=== PATIENT | male | born 1940 | race Caucasian/White ===

== ENCOUNTER → 2016-07-19 | Outpatient (RCR) ==
--- NOTE | 2016-06-30 11:56 | RS.OPPTEV2 ---
Date of Note: 06/29/16 Visit #: 1 Date of Evaluation: 06/29/16 Payer Source: MEDICARE Date of Onset/Injury/Change in Status: 05/19/16 Treatment Diagnosis: low back pain, neck pain, degenerative disease of lumbar spine History of Condition/Mechanism of Injury:: Patient reports low back and neck pain for approximately a month. Reports no known injury. Prior Level of Function.....Patient was independent with: ADL's, Self Care, Caregiving, Ambulation/Mobility, Community Integration/Access Functional Limitations: Reaching, Pushing, Pulling, Lifting, Carrying, Standing , Bending, Squatting, Community Access/Integration Current Subjective/complaints:: He denies tingling or numbness in the UE or LE' s. States the low back does not bother him all the time. States it can depend on activity. States he walks occasionally for exericse, and his back does not seem to bother him. States his neck pain began about the same time as the back. States it feels like it is swollen up the neck to the base of the skull. States he has used patches on his back and heating pad at times. He took Lortab today, but usually does not take pain medication unless he has to. Later reports occasional tingling in his feet, but he feels this is likely due to circulation problems. Medical History Medical History: COPD Medical History Comments:: HTN, PVD Surgical History Comments:: Cervical spine surgery ~10 years ago, lumbar surgery over 20 years ago, angioplasty/3 stents, Abdominal Aortic aneurysm, Hernia repair 1999 Smoking Status: Current some day smoker Diagnostic Testing/Imaging:: CT of lumbar spine w/o contrast on 06/23/16. Impression: Surgical stabilization at L5-S1. Degernerative changes at muliple interspaces, including a right sided disc protrusion at L3-4. there is central spinal stenosis and left foraminal narrowing at L4-5. Hx Home Medications: Lortab, Ambien, ASA, Metoprolol, Plavix, Pletal, Zetia Patient's Goals: His goal is to get relief of neck and back pain. Pain Assessment - Pain Description Pain Location: center of low back and center of neck up to the base of his skull. Current Pain Intensity: 4/10 Functional Outcome Measure Oswestry LBP: 36 - G Codes & Severity Modifier G Codes & Modifier: Mobility current CJ. Mobility goal CH Source of G Code score: Oswestry LBP scale Observation - Observation Posture: Forward Head, Rounded Shoulders, Posterior Pelvic Tilt Handedness: Right Gait - Gait Pattern General Gait Pattern Observation: No Deviations/Normal - ROM Comments: Cervical flexion is WFL's, extension is ~ 50% of normal, rotation to the right is WFL's, rotation to the left is approximately 60-70% of normal. Bilateral UE AROM is WFL's. - Strength Comments: UE strength is 4+ to 5/5 throughout. Fundraising Assistant Strength Left Hand Fundraising Assistant Strength: 40 lbs. Right Hand Fundraising Assistant Strength: 42 lbs. Dynamometer Testing Position: 2nd Position - ROM Lumbar Flexion: Hand reach to patellae Sidebending to Left: Reach to Mid-thigh Sidebending to Right: Reach to Mid-thigh Lumbar Spine ROM Limitations: Soft Tissue Tightness, Pain Comments: Bilateral LE AROM is WFL's, with left hip generally tighter throughout with comparison to the right hip joint. Left hip mobility into figure 4 position is approximately 50% of right hip ROM. Lower trunk rotation is approximately 50% of normal. - Strength Trunk Lateral Flexion: 4 Good Trunk Rotation: 4 Good Comments: Bilateral hip flexion, abduction, ER, and IR 4- to 4/5. All else of both hips 4/5. Bilateral knees and ankles 5/5. - Special Tests SLR Test: Negative Left, Negative Right Lila's Sign Test: Negative Left, Negative Right Seated Dural Stretch Test: Negative Left, Negative Right SI Joint Compression: Negative SI Joint Distraction: Negative Palpation Comments:: Moderate increased muscle tone along bilateral cervical paraspinals to the base of the skull. Mild tenderness reported along this region. Minimal to moderate increased muscle tone along the lumbar paraspinals bilaterally. Patient reports tenderness with central PA's over the lumbar spinous processes at the levels of L5-L2. Sensation - Sensation Right Upper Extremity: Intact/Normal Left Upper Extremity: Intact/Normal Right Lower Extremity: Intact/Normal Left Lower Extremity: Intact/Normal Balance - Sitting Balance Static Sitting Balance: Normal Dynamic Sitting Balance: Normal - Standing Balance Static Standing Balance: Good Dynamic Standing Balance: Good (-) Additional Comments: Additional Comments: SLR in supine: left 35-40 degrees, right 45 degrees. Interventions - Exercise/Activities/Manual Therapy Exercises/Activities: Patient instructed in SKTC, HS stretch, and left cervical rotation. Patient assisted with stretching into SKTC and HS stretch. Patient states end range SKTC decreases his pain. Total minutes of Exercise: 16 mins Manual Therapy: NA HOME EXERCISE PROGRAM: SKTC, HS stretch, and left cervical rotation. - Charges Total Direct Minutes: 52 mins Total Treatment Time: 52 mins Procedures billed for this date of service:: PT gibson jauregui, Ex Assessment Assessment: Patient presents to therapy with a diagnosis of degenerative disease of the lumbar spine with low back pain. He also reports neck pain that began around the same time as the back. A call was placed to Dr. Stapleton asking if he would like us to also treat Mr. Pak's neck. The patient demonstrates limited neck ROM and stability, and also demonstrates muscle imbalances in the hips that need to be addressed to decrease his back pain. Patient Education: Education of diagnosis, Body/Joint mechanics, Home Exercise Program, Home Safety, Activity Modification, Education of Plan of Care Rehab Potential: Good Short Term Goals Goal #1: Patient independent and compliant in basic HEP. Goal to be met by: 07/14/16 Goal #2: Bilateral SLR 45-50 degrees. Goal to be met by: 07/14/16 Goal #3: Bilateral hip strength 4+/5. Goal to be met by: 07/14/16 Goal #4: Cervical rotation to the left WFL's. Goal to be met by: 07/14/16 Energy Assistant Goals Goal #1: Pt knows to cont. HEP to maintain level of function at discharge. Goal to be met by: 08/04/16 Goal #2: Score on Oswestry LBP scale improved to 0% impairment. Goal to be met by: 08/04/16 Goal #3: Pt able to perform ADL's with minimal neck or back pain. Goal to be met by: 08/04/16 Goal #4: Patient to demonstrate improved postural awareness. Goal to be met by: 08/04/16 Plan - Treatment to be Provided Procedures: Therapeutic Exercises, Therapeutic Activity, Manual Therapy, Patient Education Modalities: Electrical Stimulation, Ultrasound/Phonophoresis, Class IV Laser, Cryotherapy, Hot Packs - Treatment Plan Frequency: 2-3 X week Duration: 4 weeks ORDER # VISITS AND/OR THROUGH DATE: 08/04/16 - Treatment Code (1) Low back pain Qualifiers: Chronicity: acute Back pain laterality: unspecified Sciatica presence: unspecified whether sciatica present Qualified Description: Acute low back pain, unspecified back pain laterality, with sciatica presence unspecified Qualifier Code(s): (M54.5) Low back pain (2) Neck pain Comments: M54.2 (3) Degenerative disc disease, lumbar Comments: M51.36
--- NOTE | 2016-06-30 14:03 | RS.OPPTDN ---
Subjective Date of Note: 06/30/16 Visit #: 2 Date of Evaluation: 06/29/16 Payer Source: MEDICARE Treatment Diagnosis: low back pain, neck pain, degenerative disease of lumbar spine Current Subjective/complaints:: Patient reports soreness in the lumbar paraspinals after last session of starting stretching. Pain Assessment - Pain Description Pain Location: center of low back and center of neck up to the base of his skull. Current Pain Intensity: 4-5/10 - Treatment Parameters/Method Applied: [id number] at 1.5w/cm2 along the lateral edges of the lumbar paraspinals prior EX. Patient in right side-lying. Patient Position: Right Sidelying - Heat/Cryotherapy Treatment: Hot Pack ([id number] to the lowback prior to EX. Patient in supine. ) Interventions - Exercise/Activities/Manual Therapy Exercises/Activities: Patient instructed in SKTC, HS stretch, piriformis, figure 4 hip stretch, and lower trunk rotation stretch. In sitting, reviewed cervical stretching and isometric cervical retraction. Total minutes of Exercise: 14mins Manual Therapy: NA HOME EXERCISE PROGRAM: SKTC, HS stretch, and left cervical rotation. - Charges Total Direct Minutes: 24mins Total Treatment Time: 44mins Procedures billed for this date of service:: HP, US, EX Assessment: Patient should benefit from progressing stretches and working toward trunk strengthening exercises. Patient Education: Body/Joint mechanics, Home Exercise Program Patient demonstrates compliance with HEP?: Yes Short Term Goals Goal #1: Patient independent and compliant in basic HEP. Goal to be met by: 07/14/16 Progress towards Goal:: Progressing Goal #2: Bilateral SLR 45-50 degrees. Goal to be met by: 07/14/16 Goal #3: Bilateral hip strength 4+/5. Goal to be met by: 07/14/16 Goal #4: Cervical rotation to the left WFL's. Goal to be met by: 07/14/16 Group Home Goals Goal #1: Pt knows to cont. HEP to maintain level of function at discharge. Goal to be met by: 08/04/16 Goal #2: Score on Oswestry LBP scale improved to 0% impairment. Goal to be met by: 08/04/16 Goal #3: Pt able to perform ADL's with minimal neck or back pain. Goal to be met by: 02/16/17 Goal #4: Patient to demonstrate improved postural awareness. Goal to be met by: 08/04/16 Plan PLAN OF CARE EXPIRES ON:: 08/04/16 ORDER # VISITS AND/OR THROUGH DATE: 08/04/16 PLAN: Continue Plan of Care
--- NOTE | 2016-07-05 16:03 | RS.OPPTDN ---
Subjective Date of Note: 07/05/16 Visit #: 3 Date of Evaluation: 06/29/16 Payer Source: MEDICARE Treatment Diagnosis: low back pain, neck pain, degenerative disease of lumbar spine Current Subjective/complaints:: Patient reports last treatment helped reduce pain. States he is working on HEP of stretching. Pain Assessment - Pain Description Pain Location: center of low back and center of neck up to the base of his skull. Current Pain Intensity: 4-5/10 - Treatment Modality: Ultrasound Parameters/Method Applied: [id number] at 1.5w/cm2 to the lateral edges of the lumbar paraspinals. Patient Position: Right Sidelying - Heat/Cryotherapy Treatment: Hot Pack ([id number] to the cervical spine and lowback prior to US and EX. patient in supine. ) Interventions - Exercise/Activities/Manual Therapy Exercises/Activities: [id number] Patient assisted with HS stretch, SKTC, piriformis , figure 4 hip stretch, and lower trunk rotation stretch. In sitting, reviewed cervical stretching and isometric cervical retraction. Total minutes of Exercise: 12mins Manual Therapy: NA HOME EXERCISE PROGRAM: SKTC, HS stretch, trunk rotation, and left cervical rotation. - Charges Total Direct Minutes: 26mins Total Treatment Time: 46mins Procedures billed for this date of service:: HP, US, EX Assessment: Patient responding to treatment and working on basic HEP. Patient Education: Home Exercise Program Patient demonstrates compliance with HEP?: Yes Short Term Goals Goal #1: Patient independent and compliant in basic HEP. Goal to be met by: 07/14/16 Progress towards Goal:: Progressing Goal #2: Bilateral SLR 45-50 degrees. Goal to be met by: 07/14/16 Progress towards Goal:: Progressing Goal #3: Bilateral hip strength 4+/5. Goal to be met by: 07/14/16 Goal #4: Cervical rotation to the left WFL's. Goal to be met by: 07/14/16 Jail Goals Goal #1: Pt knows to cont. HEP to maintain level of function at discharge. Goal to be met by: 08/04/16 Goal #2: Score on Oswestry LBP scale improved to 0% impairment. Goal to be met by: 08/04/16 Goal #3: Pt able to perform ADL's with minimal neck or back pain. Goal to be met by: 08/04/16 Goal #4: Patient to demonstrate improved postural awareness. Goal to be met by: 08/04/16 Plan PLAN OF CARE EXPIRES ON:: 08/04/16 ORDER # VISITS AND/OR THROUGH DATE: 08/04/16 PLAN: Continue Plan of Care
--- NOTE | 2016-07-07 14:42 | RS.OPPTDN ---
Subjective Date of Note: 07/07/16 Visit #: 4 Date of Evaluation: 06/29/16 Payer Source: MEDICARE Treatment Diagnosis: low back pain, neck pain, degenerative disease of lumbar spine Current Subjective/complaints:: Patient reports pain is lower than it was when he started. States he has little to no pain following treatment, but mild to mod discomfort usually returns within a day. Pain Assessment - Pain Description Pain Location: center of low back and center of neck up to the base of his skull. Current Pain Intensity: 4-5/10 - Treatment Parameters/Method Applied: [id number] at 1.5w/cm2 along the lateral borders of the lower lumbar paraspinals. Patient Position: Right Sidelying - Heat/Cryotherapy Treatment: Hot Pack ([id number] to the lowback and neck prior to US and EX. Patient in supine. ) Interventions - Exercise/Activities/Manual Therapy Exercises/Activities: [id number] Patient assisted with HS stretch, SKTC, piriformis , figure 4 hip stretch, and lower trunk rotation stretch. Began isometric hip adduction, isometric hip flexion, and SLR, all 3s/5reps. In sitting, green theraband for scapular retraction 2s/10reps. Reviewed cervical stretching and isometric cervical retraction. Total minutes of Exercise: 15mins Manual Therapy: NA HOME EXERCISE PROGRAM: SKTC, HS stretch, trunk rotation, and left cervical rotation. - Charges Total Direct Minutes: 27mins Total Treatment Time: 47mins Procedures billed for this date of service:: HP, US, EX Assessment: Patient continues to report progress with therapy. He is able to progress toward stability exercises. Patient Education: Body/Joint mechanics, Home Exercise Program, Home Safety, Activity Modification Patient demonstrates compliance with HEP?: Yes Short Term Goals Goal #1: Patient independent and compliant in basic HEP. Goal to be met by: 07/14/16 Progress towards Goal:: Progressing Goal #2: Bilateral SLR 45-50 degrees. Goal to be met by: 07/14/16 Progress towards Goal:: Progressing Goal #3: Bilateral hip strength 4+/5. Goal to be met by: 07/14/16 Progress towards Goal:: Progressing Goal #4: Cervical rotation to the left WFL's. Goal to be met by: 07/14/16 Director Education Goals Goal #1: Pt knows to cont. HEP to maintain level of function at discharge. Goal to be met by: 08/04/16 Goal #2: Score on Oswestry LBP scale improved to 0% impairment. Goal to be met by: 08/04/16 Goal #3: Pt able to perform ADL's with minimal neck or back pain. Goal to be met by: 08/04/16 Goal #4: Patient to demonstrate improved postural awareness. Goal to be met by: 08/04/16 Plan PLAN OF CARE EXPIRES ON:: 08/04/16 ORDER # VISITS AND/OR THROUGH DATE: 08/04/16
--- NOTE | 2016-07-08 16:26 | RS.OPPTDN ---
Subjective Date of Note: 07/08/16 Visit #: 5 Date of Evaluation: 06/29/16 Payer Source: MEDICARE Treatment Diagnosis: low back pain, neck pain, degenerative disease of lumbar spine Current Subjective/complaints:: Patient reports treatment and exercise is helping reduce pain. States neck pain is much better. Pain Assessment - Pain Description Pain Location: center of low back and center of neck up to the base of his skull. Current Pain Intensity: 4/10 - Treatment Modality: Ultrasound Parameters/Method Applied: [id number] at 1.5w/cm2 to the lateral edges of the lumbar paraspinals Patient Position: Right Sidelying - Heat/Cryotherapy Treatment: Hot Pack ([id number] to the lowback prior to US. Patient in supine. ) Interventions - Exercise/Activities/Manual Therapy Exercises/Activities: [id number] Patient assisted with HS stretch, SKTC, piriformis , figure 4 hip stretch, and lower trunk rotation stretch. Isometric hip adduction, isometric hip flexion, and SLR, all 3s/5reps. Total minutes of Exercise: 15mins Manual Therapy: NA HOME EXERCISE PROGRAM: SKTC, HS stretch, trunk rotation, and left cervical rotation. Isometric hip add, isometric hip flexion, bridging - Charges Total Direct Minutes: 27mins Total Treatment Time: 47mins Procedures billed for this date of service:: HP, US, EX Assessment: Patient responding to treatment and progressing with exercise. Patient Education: Body/Joint mechanics, Home Exercise Program, Activity Modification Patient demonstrates compliance with HEP?: Yes Short Term Goals Goal #1: Patient independent and compliant in basic HEP. Goal to be met by: 07/14/16 Progress towards Goal:: Progressing Goal #2: Bilateral SLR 45-50 degrees. Goal to be met by: 07/14/16 Progress towards Goal:: Progressing Goal #3: Bilateral hip strength 4+/5. Goal to be met by: 07/14/16 Progress towards Goal:: Progressing Goal #4: Cervical rotation to the left WFL's. Goal to be met by: 07/14/16 Progress towards Goal:: Met Shingle Weaver Goals Goal #1: Pt knows to cont. HEP to maintain level of function at discharge. Goal to be met by: 08/04/16 Goal #2: Score on Oswestry LBP scale improved to 0% impairment. Goal to be met by: 08/04/16 Goal #3: Pt able to perform ADL's with minimal neck or back pain. Goal to be met by: 08/04/16 Progress towards goal: Progressing Goal #4: Patient to demonstrate improved postural awareness. Goal to be met by: 08/04/16 Plan PLAN OF CARE EXPIRES ON:: 08/04/16 ORDER # VISITS AND/OR THROUGH DATE: 08/04/16 PLAN: Continue Plan of Care
--- NOTE | 2016-07-14 13:29 | RS.OPPTDN ---
Subjective Date of Note: 07/12/16 Visit #: 6 Date of Evaluation: 06/29/16 Payer Source: MEDICARE Treatment Diagnosis: low back pain, neck pain, degenerative disease of lumbar spine Current Subjective/complaints:: Patient reports continued progress with reduction in pain and ability to perform daily activities. Pain Assessment - Pain Description Pain Location: center of low back and center of neck up to the base of his skull. Current Pain Intensity: 3-4/10 - Treatment Modality: Ultrasound Parameters/Method Applied: [id number] at 1.5w/cm2 to the lateral edges of the lumbar paraspinals Patient Position: Right Sidelying - Heat/Cryotherapy Treatment: Hot Pack ([id number] to lowback prior to US. Patient in supine. ) Interventions - Exercise/Activities/Manual Therapy Exercises/Activities: [id number] Patient assisted with HS stretch, SKTC, piriformis , figure 4 hip stretch, and lower trunk rotation stretch. Isometric hip adduction, isometric hip flexion, and SLR. Total minutes of Exercise: 15mins Manual Therapy: NA HOME EXERCISE PROGRAM: SKTC, HS stretch, trunk rotation, and left cervical rotation. Isometric hip add, isometric hip flexion, bridging - Charges Total Direct Minutes: 27mins Total Treatment Time: 47mins Procedures billed for this date of service:: HP, US, EX Assessment: Patient continues to respond to treatment. He is motivated to work on HEP and progress. Patient Education: Home Exercise Program, Activity Modification Patient demonstrates compliance with HEP?: Yes Short Term Goals Goal #1: Patient independent and compliant in basic HEP. Goal to be met by: 07/14/16 Progress towards Goal:: Progressing Goal #2: Bilateral SLR 45-50 degrees. Goal to be met by: 07/14/16 Progress towards Goal:: Progressing Goal #3: Bilateral hip strength 4+/5. Goal to be met by: 07/14/16 Progress towards Goal:: Progressing Goal #4: Cervical rotation to the left WFL's. Goal to be met by: 07/14/16 Progress towards Goal:: Met [facility] Goals Goal #1: Pt knows to cont. HEP to maintain level of function at discharge. Goal to be met by: 08/04/16 Progress towards goal: Progressing Goal #2: Score on Oswestry LBP scale improved to 0% impairment. Goal to be met by: 08/04/16 Goal #3: Pt able to perform ADL's with minimal neck or back pain. Goal to be met by: 08/04/16 Progress towards goal: Progressing Goal #4: Patient to demonstrate improved postural awareness. Goal to be met by: 08/04/16 Plan PLAN OF CARE EXPIRES ON:: 08/04/16 ORDER # VISITS AND/OR THROUGH DATE: 08/04/16 PLAN: Continue Plan of Care
--- NOTE | 2016-07-14 14:09 | RS.OPPTDN ---
Subjective Date of Note: 07/14/16 Visit #: 7 Date of Evaluation: 06/29/16 Payer Source: MEDICARE Treatment Diagnosis: low back pain, neck pain, degenerative disease of lumbar spine Current Subjective/complaints:: Reports the therapy is helping ,does have slight pain in the L hip and upper part of the thigh. Pain Assessment - Pain Description Pain Location: Center of low back /L hip today Pain Description: Dull, Aching Current Pain Intensity: 3/10 - Treatment Modality: Ultrasound Parameters/Method Applied: 10 mins. @ 1.5 w/cm2,continuoous mode to lumbar area Patient Position: Right Sidelying - Heat/Cryotherapy Treatment: Hot Pack (prior to US,ex.) Interventions - Exercise/Activities/Manual Therapy Exercises/Activities: [id number] Patient assisted with HS stretch, SKTC, piriformis , figure 4 hip stretch, and lower trunk rotation stretch. Isometric hip adduction, isometric hip flexion, and SLR. Total minutes of Exercise: 15 Manual Therapy: NA Total minutes of Manual Therapy: 0 HOME EXERCISE PROGRAM: SKTC, HS stretch, trunk rotation, and left cervical rotation. Isometric hip add, isometric hip flexion, bridging - Charges Total Direct Minutes: 25 Total Treatment Time: 45 Procedures billed for this date of service:: hp,US,ex 1 Assessment: Patient has discomfort with hamstring stretches today,but tolerates all other exercises well.His LTR is functional with reports of tightness,but no pain. Patient Education: Body/Joint mechanics, Home Exercise Program Patient demonstrates compliance with HEP?: Yes Short Term Goals Goal #1: Patient independent and compliant in basic HEP. Goal to be met by: 07/14/16 Progress towards Goal:: Progressing Goal #2: Bilateral SLR 45-50 degrees. Goal to be met by: 07/14/16 Progress towards Goal:: Progressing Goal #3: Bilateral hip strength 4+/5. Goal to be met by: 07/14/16 Progress towards Goal:: Progressing Goal #4: Cervical rotation to the left WFL's. Goal to be met by: 07/14/16 Progress towards Goal:: Met [facility] Goals Goal #1: Pt knows to cont. HEP to maintain level of function at discharge. Goal to be met by: 08/04/16 Progress towards goal: Progressing Goal #2: Score on Oswestry LBP scale improved to 0% impairment. Goal to be met by: 08/04/16 Goal #3: Pt able to perform ADL's with minimal neck or back pain. Goal to be met by: 08/04/16 Progress towards goal: Progressing Goal #4: Patient to demonstrate improved postural awareness. Goal to be met by: 08/04/16 Progress towards goal: Progressing Plan PLAN OF CARE EXPIRES ON:: 08/04/16 ORDER # VISITS AND/OR THROUGH DATE: 08/04/16 PLAN: Continue Plan of Care
--- NOTE | 2016-07-19 15:23 | RS.OPPTDN ---
Subjective Date of Note: 07/19/16 Visit #: 8 Date of Evaluation: 06/29/16 Payer Source: MEDICARE Treatment Diagnosis: low back pain, neck pain, degenerative disease of lumbar spine Current Subjective/complaints:: Patient reports continued improvement. States pain increases dependening on activity. States he is working on HEP. Pain Assessment - Pain Description Pain Location: Center of low back /L hip today Pain Description: Dull, Aching Current Pain Intensity: 3/10 - Treatment Modality: Ultrasound Parameters/Method Applied: [id number] to the lateral lumbar paraspinals at 1.5w/ cm2. Patient Position: Right Sidelying - Heat/Cryotherapy Treatment: Hot Pack ([id number] to the lowback prior to US and EX. Patient in supine. ) Interventions - Exercise/Activities/Manual Therapy Exercises/Activities: [id number] Patient assisted with HS stretch, SKTC, piriformis , figure 4 hip stretch, and lower trunk rotation stretch. Isometric hip adduction, isometric hip flexion, and SLR. Isometric trunk rotation. Modified bridging. Total minutes of Exercise: 15mins Manual Therapy: NA HOME EXERCISE PROGRAM: SKTC, HS stretch, trunk rotation, and left cervical rotation. Isometric hip add, isometric hip flexion, bridging - Charges Total Direct Minutes: 27mins Total Treatment Time: 47mins Procedures billed for this date of service:: HP, US, EX Assessment: Patient progressing with exercise and ability to perform light daily activities. Patient Education: Body/Joint mechanics, Home Exercise Program, Home Safety, Activity Modification Patient demonstrates compliance with HEP?: Yes Short Term Goals Goal #1: Patient independent and compliant in basic HEP. Goal to be met by: 07/14/16 (100%) Progress towards Goal:: Met Goal #2: Bilateral SLR 45-50 degrees. Goal to be met by: 07/14/16 (75%) Progress towards Goal:: Progressing Goal #3: Bilateral hip strength 4+/5. Goal to be met by: 07/14/16 (50%) Progress towards Goal:: Progressing Goal #4: Cervical rotation to the left WFL's. Goal to be met by: 07/14/16 (100%) Progress towards Goal:: Met Mixing Operator Goals Goal #1: Pt knows to cont. HEP to maintain level of function at discharge. Goal to be met by: 08/04/16 Progress towards goal: Progressing Goal #2: Score on Oswestry LBP scale improved to 0% impairment. Goal to be met by: 08/04/16 Goal #3: Pt able to perform ADL's with minimal neck or back pain. Goal to be met by: 08/04/16 Progress towards goal: Progressing Goal #4: Patient to demonstrate improved postural awareness. Goal to be met by: 08/04/16 Progress towards goal: Progressing Plan PLAN OF CARE EXPIRES ON:: 08/04/16 ORDER # VISITS AND/OR THROUGH DATE: 08/04/16 PLAN: Continue Plan of Care
== END ==
PROVIDERS: ATTEND Family Medicine
DX: M51.36 Other intervertebral disc degeneration, lumbar region (principal); M54.5 Low back pain; M54.2 Cervicalgia

== ENCOUNTER 2016-07-29 13:00 | Outpatient (RCR) ==
--- NOTE | 2016-07-21 16:14 | RS.OPPTDN ---
Subjective Date of Note: 07/21/16 Visit #: 9 Date of Evaluation: 06/29/16 Payer Source: MEDICARE Treatment Diagnosis: low back pain, neck pain, degenerative disease of lumbar spine Current Subjective/complaints:: Patient reports continued improvement in pain and ability to perform light daily activities. Pain Assessment - Pain Description Pain Location: Center of low back /L hip today Current Pain Intensity: 3/10 - Treatment Modality: Ultrasound Parameters/Method Applied: [id number] at 1.5w/cm2 to the lateral lumbar paraspinals. Patient Position: Right Sidelying - Heat/Cryotherapy Treatment: Hot Pack ([id number] to the lowback prior to US and EX. Patient in supine. ) Interventions - Exercise/Activities/Manual Therapy Exercises/Activities: [id number] Patient assisted with HS stretch, SKTC, piriformis , figure 4 hip stretch, and lower trunk rotation stretch. Isometric hip adduction, isometric hip flexion, and SLR. Isometric trunk rotation. Modified bridging. Total minutes of Exercise: 15mins Manual Therapy: NA HOME EXERCISE PROGRAM: SKTC, HS stretch, trunk rotation, and left cervical rotation. Isometric hip add, isometric hip flexion, bridging - Charges Total Direct Minutes: 27mins Total Treatment Time: 47mins Procedures billed for this date of service:: HP, US, EX Assessment: Patient progressing well. Reporting decreased pain. He demos increased hamstring flexibility. Patient Education: Home Exercise Program, Home Safety Patient demonstrates compliance with HEP?: Yes Short Term Goals Goal #1: Patient independent and compliant in basic HEP. Goal to be met by: 07/14/16 (100%) Progress towards Goal:: Met Goal #2: Bilateral SLR 45-50 degrees. Goal to be met by: 07/14/16 (80%) Progress towards Goal:: Progressing Goal #3: Bilateral hip strength 4+/5. Goal to be met by: 07/14/16 (60%) Progress towards Goal:: Progressing Goal #4: Cervical rotation to the left WFL's. Goal to be met by: 07/14/16 (100%) Progress towards Goal:: Met Manager Of Care Goals Goal #1: Pt knows to cont. HEP to maintain level of function at discharge. Goal to be met by: 08/04/16 Progress towards goal: Progressing Goal #2: Score on Oswestry LBP scale improved to 0% impairment. Goal to be met by: 08/04/16 Goal #3: Pt able to perform ADL's with minimal neck or back pain. Goal to be met by: 08/04/16 Progress towards goal: Progressing Goal #4: Patient to demonstrate improved postural awareness. Goal to be met by: 08/04/16 Progress towards goal: Progressing Plan PLAN OF CARE EXPIRES ON:: 08/04/16 ORDER # VISITS AND/OR THROUGH DATE: 08/04/16 PLAN: Continue Plan of Care (Continue with modalities and progressive exercise to reduce pain and increase functional activity level.)
--- NOTE | 2016-07-26 14:13 | RS.OPPTDN ---
Subjective Date of Note: 07/26/16 Visit #: 10 Date of Evaluation: 06/29/16 Payer Source: MEDICARE Treatment Diagnosis: low back pain, neck pain, degenerative disease of lumbar spine Current Subjective/complaints:: Patient reports he has made good progress with therapy. States he is working on HEP and will do more walking when weather improves. He is now able to perform more daily and seocial activities. Pain Assessment - Pain Description Pain Location: Center of low back /L hip today Current Pain Intensity: 2-3/10 - Treatment Modality: Ultrasound Parameters/Method Applied: [id number] at 1.5w/cm2 to the lateral edges of the bilateral lumbar paraspinals. Patient Position: Right Sidelying - Heat/Cryotherapy Treatment: Hot Pack ([id number] to the lowback prior to US and EX. Patient in supine. ) Interventions - Exercise/Activities/Manual Therapy Exercises/Activities: [id number] Patient assisted with HS stretch, SKTC, piriformis , figure 4 hip stretch, and lower trunk rotation stretch. Isometric hip adduction, isometric hip flexion, and SLR. Isometric trunk rotation. Modified bridging. Reviewed FOM and discussed progress. Total minutes of Exercise: 15mins Manual Therapy: NA HOME EXERCISE PROGRAM: SKTC, HS stretch, trunk rotation, and left cervical rotation. Isometric hip add, isometric hip flexion, bridging - Objective Findings Observations,measurements,etc.: Patient reassessed the Oswestry Low Back Pain Scale and score improves to 9 or 18% deficit. (was 18 or 36% on Eval) Patient demos increased hamstring flexibility and SLR to 50 degrees without discomfort. - Charges Total Direct Minutes: 27mins Total Treatment Time: 47mins Procedures billed for this date of service:: HP, US, EX Assessment: Patient reports signifircant improvement and demos potential to progress with goals. Patient Education: Home Exercise Program, Education of Plan of Care Patient demonstrates compliance with HEP?: Yes Short Term Goals Goal #1: Patient independent and compliant in basic HEP. Goal to be met by: 07/14/16 (100%) Progress towards Goal:: Met Goal #2: Bilateral SLR 45-50 degrees. Goal to be met by: 07/14/16 (100%) Progress towards Goal:: Met Goal #3: Bilateral hip strength 4+/5. Goal to be met by: 07/14/16 (100%) Progress towards Goal:: Met Goal #4: Cervical rotation to the left WFL's. Goal to be met by: 07/14/16 (100%) Progress towards Goal:: Met Retirement Assistant Goals Goal #1: Pt knows to cont. HEP to maintain level of function at discharge. Goal to be met by: 08/04/16 Progress towards goal: Progressing Goal #2: Score on Oswestry LBP scale improved to 0% impairment. Goal to be met by: 08/04/16 (50%) Progress towards goal: Progressing Goal #3: Pt able to perform ADL's with minimal neck or back pain. Goal to be met by: 08/04/16 (50%) Progress towards goal: Progressing Goal #4: Patient to demonstrate improved postural awareness. Goal to be met by: 08/04/16 (100%) Progress towards goal: Met Plan PLAN OF CARE EXPIRES ON:: 08/04/16 ORDER # VISITS AND/OR THROUGH DATE: 08/04/16 PLAN: Continue Plan of Care (Continue and progress to meet functional goals and increase activity level.)
--- NOTE | 2016-07-27 09:00 | RS.PTSUM ---
Progress Note/Summary Date of Note: 07/27/16 Date of Evaluation: 06/29/16 Number of Visits: 10 Reporting Period for this Progress Note: 06/29/16 through 07/26/16 Current Complaints/Gains: Patient reports continued progress. States he is increasing his daily and recreational activities. He is working on HEP and will start walking when weather is better. Objective Measurements/Presentation: Demonstrates SLR to 50 degrees or better, no increased pain with activities in the department. Bilateral hip strength 4+/ 5. G Codes: Mobility current CI. Mobility goal CH Source of G Code Score: Oswestry LBP 18% this day. - Short Term Goals Goal #1: Patient independent and compliant in basic HEP. Goal to be met by: 07/14/16 (100%) Progress towards Goal:: Met Goal #2: Bilateral SLR 45-50 degrees. Goal to be met by: 07/14/16 (100%) Progress towards Goal:: Met Goal #3: Bilateral hip strength 4+/5. Goal to be met by: 07/14/16 (100%) Progress towards Goal:: Met Goal #4: Cervical rotation to the left WFL's. Goal to be met by: 07/14/16 (100%) Progress towards Goal:: Met - Halfway Goals Goal #1: Pt knows to cont. HEP to maintain level of function at discharge. Goal to be met by: 08/04/16 Progress towards goal: Progressing Goal #2: Score on Oswestry LBP scale improved to 0% impairment. Goal to be met by: 08/04/16 (50%) Progress towards goal: Progressing Goal #3: Pt able to perform ADL's with minimal neck or back pain. Goal to be met by: 08/04/16 (50%) Progress towards goal: Progressing Goal #4: Patient to demonstrate improved postural awareness. Goal to be met by: 08/04/16 (100%) Progress towards goal: Met - Assessment Summary: Patient has made progress towards goals., Patient demonstrates potential to gain increased function with therapy, Maximum potential has yet to be attained. - Plan Plan: Continue Plan of Care Comments: Two more visits to progress with goals, HEP, and functional activity. PLAN OF CARE EXPIRES ON:: 08/04/16 ORDER # VISITS AND/OR THROUGH DATE: 08/04/16
--- NOTE | 2016-07-29 16:33 | RS.OPPTDN ---
Subjective Date of Note: 07/29/16 Visit #: 11 Date of Evaluation: 06/29/16 Payer Source: MEDICARE Treatment Diagnosis: low back pain, neck pain, degenerative disease of lumbar spine Current Subjective/complaints:: Patient reports he has had little to no pain the last few days. States he does have stiffness but he is doing much better. States modalities and exercise have helped him progress. Following execise today , christin states he feels he is ready to stop therapy. States he will continue HEP as instructed. Pain Assessment - Pain Description Pain Location: Center of low back /L hip today Current Pain Intensity: mild stiffness, no pain after treatment and exercise - Treatment Modality: Ultrasound Parameters/Method Applied: [id number] at 1.5w/cm2 to the lateral edges of the lumbar paraspinals prior to EX. Patient Position: Right Sidelying ([id number] to the lowback prior to US and EX. patient in supine.) - Heat/Cryotherapy Treatment: Hot Pack ([id number] to lowback. Patient in supine. ) Interventions - Exercise/Activities/Manual Therapy Exercises/Activities: [id number] Patient assisted with HS stretch, SKTC, piriformis , figure 4 hip stretch, and lower trunk rotation stretch. Isometric hip adduction, isometric hip flexion, and SLR. Isometric trunk rotation. Modified bridging. Bug for trunk stability. Reviewed FOM and discussed progress. Total minutes of Exercise: 15mins Manual Therapy: NA HOME EXERCISE PROGRAM: SKTC, HS stretch, trunk rotation, and left cervical rotation. Isometric hip add, isometric hip flexion, bridging, bug - Objective Findings Observations,measurements,etc.: FOM not reassessed - Charges Total Direct Minutes: 25mins Total Treatment Time: 50mins Procedures billed for this date of service:: HP, US, EX Assessment: Patient has progressed well and now feels he is ready for discharge with HEP. Has met 7 or 8 treatment goals. Patient Education: Home Exercise Program Comments: Finalized all patient education and HEP. Patient demonstrates compliance with HEP?: Yes Short Term Goals Goal #1: Patient independent and compliant in basic HEP. Goal to be met by: 07/14/16 (100%) Progress towards Goal:: Met Goal #2: Bilateral SLR 45-50 degrees. Goal to be met by: 07/14/16 (100%) Progress towards Goal:: Met Goal #3: Bilateral hip strength 4+/5. Goal to be met by: 07/14/16 (100%) Progress towards Goal:: Met Goal #4: Cervical rotation to the left WFL's. Goal to be met by: 07/14/16 (100%) Progress towards Goal:: Met Senior Living Goals Goal #1: Pt knows to cont. HEP to maintain level of function at discharge. Goal to be met by: 08/04/16 (100%) Progress towards goal: Met Goal #2: Score on Oswestry LBP scale improved to 0% impairment. Goal to be met by: 08/04/16 (50%) Progress towards goal: Progressing Goal #3: Pt able to perform ADL's with minimal neck or back pain. Goal to be met by: 08/04/16 (100%) Progress towards goal: Met Goal #4: Patient to demonstrate improved postural awareness. Goal to be met by: 08/04/16 (100%) Progress towards goal: Met Plan PLAN OF CARE EXPIRES ON:: 08/04/16 ORDER # VISITS AND/OR THROUGH DATE: 08/04/16 PLAN: Plan for Discharge (Discharge with HEP at patient request due to good progress.)
--- NOTE | 2016-09-12 10:24 | RS.OPPTDC ---
Date of Discharge: 07/29/16 Date of Evaluation: 06/29/16 Treatment Diagnosis: low back pain, neck pain, degenerative disease of lumbar spine Current Complaints/Gains: Patient decided to stop therapy following 11th treatment session. Staets he has no pain or morning stiffness. He will continue the HEP on his own. Functional Outcome Measure Oswestry LBP: 18 - G Codes & Severity Modifier G Codes & Modifier: Mobility Goal CH. Mobility D/C CI Source of G Code score: Oswestry LBP scale Interventions - Exercise/Activities/Manual Therapy Exercises/Activities: NA Manual Therapy: NA HOME EXERCISE PROGRAM: SKTC, HS stretch, trunk rotation, and left cervical rotation. Isometric hip add, isometric hip flexion, bridging, bug - Charges Total Direct Minutes: NA Total Treatment Time: NA Procedures billed for this date of service:: NA Assessment Assessment: Mr. Pak reports good benefit from therapy in decreasing his back pain and stiffness. He is independent in demonstration of HEP and feels confident that he can continue with exercises on his own. Short Term Goals Goal #1: Patient independent and compliant in basic HEP. Goal to be met by: 07/14/16 (100%) Progress towards Goal:: Met Goal #2: Bilateral SLR 45-50 degrees. Goal to be met by: 07/14/16 (100%) Progress towards Goal:: Met Goal #3: Bilateral hip strength 4+/5. Goal to be met by: 07/14/16 (100%) Progress towards Goal:: Met Goal #4: Cervical rotation to the left WFL's. Goal to be met by: 07/14/16 (100%) Progress towards Goal:: Met Human Resources Recruiter Goals Goal #1: Pt knows to cont. HEP to maintain level of function at discharge. Goal to be met by: 08/04/16 (100%) Progress towards goal: Met Goal #2: Score on Oswestry LBP scale improved to 0% impairment. Goal to be met by: 08/04/16 Progress towards goal: Not Met Comments: scores 18% impairment on last day of treatment Goal #3: Pt able to perform ADL's with minimal neck or back pain. Goal to be met by: 08/04/16 (100%) Progress towards goal: Met Goal #4: Patient to demonstrate improved postural awareness. Goal to be met by: 02/16/17 (100%) Progress towards goal: Met Plan Reason for Discharge:: No Further Skilled Therapy Indicated
== END 2016-08-16 ==
PROVIDERS: ATTEND Family Medicine
DX: M51.36 Other intervertebral disc degeneration, lumbar region (principal)

== ENCOUNTER 2017-09-26 09:59 | Outpatient (RCR) ==
[2017-10-16 10:34] VITALS: BP 126/58
== END 2017-10-16 23:59 ==
LOC: PUL.REHAB 09:59
PROVIDERS: ATTEND Internal Medicine Pulmonary Disease
DX: J44.9 Chronic obstructive pulmonary disease, unspecified (principal)

== ENCOUNTER 2017-10-17 06:51 | Outpatient (RCR) ==
[2017-11-14 10:50] VITALS: BP 142/54
== END 2017-11-16 23:59 ==
LOC: PUL.REHAB 06:51
PROVIDERS: ATTEND Internal Medicine Pulmonary Disease
DX: J44.9 Chronic obstructive pulmonary disease, unspecified (principal)

== ENCOUNTER 2017-11-17 07:51 | Outpatient (RCR) ==
[2017-12-14 11:42] VITALS: BP 138/56
== END 2017-12-16 23:59 ==
LOC: PUL.REHAB 07:51
PROVIDERS: ATTEND Internal Medicine Pulmonary Disease
DX: J44.9 Chronic obstructive pulmonary disease, unspecified (principal)

== ENCOUNTER 2017-12-18 06:50 | Outpatient (RCR) ==
[2017-12-21 11:47] VITALS: BP 126/56
== END 2018-01-16 23:59 ==
LOC: PUL.REHAB 06:50
PROVIDERS: ATTEND Internal Medicine Pulmonary Disease
DX: J44.9 Chronic obstructive pulmonary disease, unspecified (principal)

== ENCOUNTER 2018-01-17 07:13 | Outpatient (RCR) | END 2018-02-16 23:59 | LOC: PUL.REHAB 07:13 | PROVIDERS: ATTEND Internal Medicine Pulmonary Disease | DX: J44.9 Chronic obstructive pulmonary disease, unspecified (principal) ==

== ENCOUNTER 2018-02-20 06:56 | Outpatient (RCR) | payer OTHER | END 2018-03-18 23:59 | LOC: PUL.REHAB 06:56 | PROVIDERS: ATTEND Internal Medicine Pulmonary Disease | DX: J44.9 Chronic obstructive pulmonary disease, unspecified (principal) ==

== ENCOUNTER 2018-03-19 07:26 | Outpatient (RCR) | payer OTHER | END 2018-03-29 08:13 | disposition home or self-care (01) | LOC: PUL.REHAB 07:26 | PROVIDERS: ATTEND Internal Medicine Pulmonary Disease | DX: J44.9 Chronic obstructive pulmonary disease, unspecified (principal) ==

== ENCOUNTER 2018-10-14 07:56 | Observation (INO) ==
[2018-10-14] MEDS ORDERED: DUONEB NEB STA (08:27)
--- NOTE | 2018-10-14 09:54 | ED.PDOC ---
General ED Provider: Dr. QUINN SOLIS Chief Complaint: Shortness of Air Stated Complaint: cough , congestion, Time Seen by Physician: 08:00 Mode of Arrival: Walk-In Information Source: Patient, Family Exam Limitations: No limitations Primary Care Provider: RACIEL JEFFREY Nursing and Triage Documentation Reviewed and Agree: Yes Does patient meet sepsis criteria?: No System Inflammatory Response Syndrome: Not Applicable Sepsis Protocol: For patient's 13 years and over: Temp is 96.8 and below OR 101 and greater Pulse >90 BPM Resp >20/minute Acutely Altered Mental Status Are patient's symptoms suggestive of a new infection, such as: -Pneumonia -Skin, Soft Tissue -Endocarditis -UTI -Bone, Joint Infection -Implantable Device -Acute Abdominal Infection -Wound Infection -Meningitis -Blood Stream Catheter Infection -Unknown Respiratory Complaint Exam - Respiratory Complaint/Exam Onset/Duration: 2 days Symptoms Are: Still present Timing: Intermittent Initial Severity: Moderate Current Severity: Mild Location: Nose, Throat, Chest Character: Reports: Non-productive cough, Dry cough Aggravating: Reports: URI, Weather Alleviating: Reports: Bronchodilators Associated Signs and Symptoms: Reports: URI, Nasal congestion. Denies: Rapid breathing, Dyspnea, Fever, Chills, Chest pain, Pleuritic chest pain, Wheezing, Hemoptysis, Dizziness, Calf pain, Calf swelling, Edema, Hoarseness, Sinus discomfort, Vomiting, Sore throat, Weight loss, Decreased oral intake, Increased thirst, Increased appetite, Increased urination Related History: Reports: Similar episode History of Healthcare-Acquired Pneumonia: No Related Surgical History: Reports: None Pulmonary Embolism Risk Factors: None Review of Systems - Review Of Systems Constitutional: Reports: Malaise Eyes: Reports: No symptoms Ears, Nose, Mouth, Throat: Reports: No symptoms Respiratory: Reports: Cough, Wheezing Cardiac: Reports: No symptoms GI: Reports: No symptoms : Reports: No symptoms Musculoskeletal: Reports: No symptoms Skin: Reports: No symptoms Neurological: Reports: No symptoms Endocrine: Reports: No symptoms Hematologic/Lymphatic: Reports: No symptoms All Other Systems: Reviewed and Negative Past Medical History - Past Medical History Previously Healthy: Yes Endocrine: Reports: Dyslipidemia Cardiovascular: Reports: None Respiratory: Reports: COPD Hematological: Reports: None Gastrointestinal: Reports: None Genitourinary: Reports: None Neuro/Psych: Reports: None Musculoskeletal: Reports: None Cancer: Reports: None - Surgical History General Surgical History: Reports: None - Family History Family History: Reports: None - Social History Smoking Status: Former smoker Hx Substance Use: No Alcohol Screening: None Physical Exam - Physical Exam Appearance: Ill-appearing Ill-appearing: Mild Pain Distress: Mild Eyes: GINI, EOMI, Conjunctiva clear ENT: Ears normal, Nose normal, Oropharynx normal Respiratory: Breath sounds diminished, Rhonchi, Wheezes Cardiovascular: RRR, Pulses normal, No rub, No murmur GI/: Soft, Nontender, No masses, Bowel sounds normal, No Organomegaly Musculoskeletal: Normal strength, ROM intact, No edema, No calf tenderness Skin: Warm, Dry, Normal color Neurological: Sensation intact, Motor intact, Reflexes intact, Cranial nerves intact, Alert, Oriented Psychiatric: Affect appropriate, Mood appropriate Interpretation - Radiology Interpretation Radiology Interpretation By: ED Physician Radiology Results: No acute changes Re-Evaluation - Re-Evaluation Time of Re-Evaluation: 09:00 Status: Improved Vital Signs Stable: Yes Pain Level: 0 Appearance: NAD Lungs: Clear Skin: Warm and Dry Neuro: Alert and Oriented X3 CV: RRR Additional Comments: no acute resp events occured - Re-Evaluation Time of Re-Evaluation: 09:54 Status: Improved Vital Signs Stable: Yes Pain Level: 0 Appearance: NAD Skin: Warm and Dry Neuro: Alert and Oriented X3 CV: RRR Physician Notification - Case Discussed Physician Notified: se Time of Notification: 09:54 Critical Care Note - Critical Care Note Total Time (mins): 0 Course - Course Hematology/Chemistry: 10/14/18 08:35 10/14/18 08:35 Orders, Labs, Meds: Lab Review 10/14/18 10/14/18 10/14/18 08:27 08:35 08:35 WBC 8.38 RBC 4.17 L Hgb 12.5 L Hct 38.1 L MCV 91.4 MCH 30.0 MCHC 32.8 RDW Coeff of Miquel 13.5 Plt Count 176 Immature Gran % (Auto) 0.4 Neut % (Auto) 78.3 Lymph % (Auto) 12.3 [place] % (Auto) 6.8 Eos % (Auto) 1.6 Baso % (Auto) 0.6 Immature Gran # (Auto) 0.0 Neut # (Auto) 6.6 Lymph # (Auto) 1.0 [place] # (Auto) 0.6 Eos # (Auto) 0.1 Baso # (Auto) 0.1 PT 9.9 INR 0.99 APTT 18.6 L Puncture Site Rbrach O2 Saturation 96.0 ABG pH 7.418 ABG pCO2 36.1 ABG pO2 81.0 L ABG HCO3 23.3 ABG Total CO2 24 ABG Base Excess -1 FiO2 % 21.0 Sodium Potassium Chloride Carbon Dioxide Anion Gap BUN Creatinine Estimated GFR (MDRD) BUN/Creatinine Ratio Glucose Calcium Total Bilirubin AST ALT Alkaline Phosphatase Total Creatine Kinase Troponin I Total Protein Albumin Globulin Albumin/Globulin Ratio Influ A Molecular Assay Influ B Molecular Assay 10/14/18 10/14/18 08:35 08:35 WBC RBC Hgb Hct MCV MCH MCHC RDW Coeff of Miquel Plt Count Immature Gran % (Auto) Neut % (Auto) Lymph % (Auto) [place] % (Auto) Eos % (Auto) Baso % (Auto) Immature Gran # (Auto) Neut # (Auto) Lymph # (Auto) [place] # (Auto) Eos # (Auto) Baso # (Auto) PT INR APTT Puncture Site O2 Saturation ABG pH ABG pCO2 ABG pO2 ABG HCO3 ABG Total CO2 ABG Base Excess FiO2 % Sodium 136.7 Potassium 3.72 Chloride 103.5 Carbon Dioxide 22.9 Anion Gap 14.02 BUN 13.4 Creatinine 0.61 Estimated GFR (MDRD) 128.00 BUN/Creatinine Ratio 21.96 Glucose 181.1 H Calcium 9.56 Total Bilirubin 0.45 AST 27.6 ALT 22.8 Alkaline Phosphatase 62.8 Total Creatine Kinase 34.8 L Troponin I < 0.012 Total Protein 6.59 Albumin 4.20 Globulin 2.39 Albumin/Globulin Ratio 1.75 Influ A Molecular Assay Negative by naat Influ B Molecular Assay Negative by naat Orders Category Date Time Status ABG DRAW REQUEST Stat CARDIO 10/14/18 08:27 Completed EKG-(ED ONLY) Stat CARDIO 10/14/18 08:53 Completed EKG-(IP & OP ONLY) DAILY CARDIO 10/15/18 06:00 Ordered EKG-(IP & OP ONLY) DAILY CARDIO 10/16/18 06:00 Ordered EKG-(IP & OP ONLY) DAILY CARDIO 10/17/18 06:00 Ordered NEBULIZER TREATMENT Stat CARDIO 10/14/18 08:27 Completed NEBULIZER TREATMENT Stat CARDIO 10/14/18 09:49 Ordered ACTIVITY .BR with BRP CARE 10/14/18 09:48 Ordered BLOOD GLUCOSE MONITORING ACCUCHECK Q6H CARE 10/14/18 09:48 Ordered VITAL SIGNS Q8HR CARE 10/14/18 09:48 Ordered REGULAR DIET DIETARY 10/14/18 Lunch Ordered ABG Stat LAB 10/14/18 08:27 Completed CBC W/ AUTO DIFF DAILY@0600 LAB 10/15/18 06:00 Ordered CBC W/ AUTO DIFF DAILY@0600 LAB 10/16/18 06:00 Ordered CBC W/ AUTO DIFF Stat LAB 10/14/18 08:35 Completed COMPREHENSIVE METABOLIC PANEL DAILY@0600 LAB 10/15/18 06:00 Ordered COMPREHENSIVE METABOLIC PANEL DAILY@0600 LAB 10/16/18 06:00 Ordered COMPREHENSIVE METABOLIC PANEL Stat LAB 10/14/18 08:35 Completed CREATINE KINASE Stat LAB 10/14/18 08:35 Completed FLU A/B MOLECULAR Stat LAB 10/14/18 08:35 Completed PARTIAL THROMBOPLASTIN TIME Stat LAB 10/14/18 08:35 Completed PT WITH INR Stat LAB 10/14/18 08:35 Completed TROPONIN I Stat LAB 10/14/18 08:35 Completed Amoxicillin/Potassium Clav [Augmentin 875-125 mg Tab] MEDS 10/14/18 21:00 Ordered 1 each PO BID Atorvastatin Calcium [Atorvastatin Calcium] MEDS 10/15/18 09:00 Ordered 40 mg PO DAILY Budesonide/Formoterol Fumarate [Symbicort 160-4.5 Mcg MEDS 10/14/18 10:00 Ordered Inhaler] 1 puff IH DIRECTED Cilostazol [Pletal] MEDS 10/15/18 09:00 Ordered 100 mg PO DAILY Clopidogrel Bisulfate [Plavix] MEDS 10/15/18 09:00 Ordered 75 mg PO DAILY Ezetimibe [Zetia] MEDS 10/15/18 09:00 Ordered 10 mg PO DAILY Ipratropium/Albuterol Neb [Duoneb] MEDS 10/14/18 08:27 Discontinued 1 vial NEB ONCE STA Ipratropium/Albuterol Neb [Duoneb] MEDS 10/14/18 12:00 Ordered 1 vial NEB RTQ6H Methylprednisolone Sod Succ/Pf [Solu-Medrol 125 mg] MEDS 10/14/18 10:00 Ordered 60 mg IVP Q8HR Pantoprazole Sodium [Protonix] MEDS 10/15/18 09:00 Ordered 40 mg PO DAILY Potassium Chloride/D5-0.9%NaCl [D5%-Ns-KCl 20 Meq/l IV MEDS 10/14/18 10:00 Ordered Cherry] 1,000 ml IV 75 mls/hr Sodium Chloride 0.9% [Sodium Chloride] 1,000 ml MEDS 10/14/18 10:00 Ordered IV 75 mls/hr Zolpidem Tartrate [Zolpidem Tartrate] MEDS 10/15/18 09:00 Ordered 10 mg PO DAILY CHEST, 2 VIEWS PA & LAT Stat RADS 10/14/18 09:20 Taken Medications Generic Name Dose Route Start Last Admin Trade Name Bianka PRN Reason Stop Dose Admin Albuterol/Ipratropium 1 vial 10/14/18 12:00 Duoneb NEB RTQ6H NEELIMA Amoxicillin/Clavulanate Potassium tab 10/14/18 21:00 Augmentin 875-125 Mg Tab PO 10/17/18 20:59 BID [facility] Budesonide/Formoterol Fumarate 1 puff 10/14/18 10:00 Symbicort 160-4.5 Mcg Inhaler IH DIRECTED [facility] Cilostazol 100 mg 10/15/18 09:00 Pletal PO DAILY [facility] Clopidogrel Bisulfate 75 mg 10/15/18 09:00 Plavix PO DAILY [facility] Ezetimibe 10 mg 10/15/18 09:00 Zetia PO DAILY [facility] Potassium Chloride/Dextrose/Sod Cl 1,000 mls @ 75 mls/hr 10/14/18 10:00 D5%-Ns-Kcl 20 Meq/L Iv Cherry IV .[id number] NEELIMA Sodium Chloride 1,000 mls @ 75 mls/hr 10/14/18 10:00 Sodium Chloride IV .[id number] [facility] Methylprednisolone Sodium Succinate 60 mg 10/14/18 10:00 Solu-Medrol 125 Mg IVP Q8HR NEELIMA Non-Formulary Medication 40 mg 10/15/18 09:00 Atorvastatin Calcium [Atorvastatin Calcium] PO DAILY [facility] Non-Formulary Medication 10 mg 10/15/18 09:00 Zolpidem Tartrate [Zolpidem Tartrate] PO DAILY [facility] Pantoprazole Sodium 40 mg 10/15/18 09:00 Protonix PO DAILY NEELIMA Discontinued Medications Generic Name Dose Route Start Last Admin Trade Name Freq PRN Reason Stop Dose Admin Albuterol/Ipratropium 1 vial 10/14/18 08:27 10/14/18 08:45 Duoneb NEB 10/14/18 08:28 1 vial ONCE STA Administration Vital Signs: Temp Pulse Resp BP Pulse Ox 10/14/18 07:57 98.1 F 108 H 24 171/74 H 94 L Departure - Departure Time of Disposition: 09:54 Disposition: PLACED OBSERVATION Discharge Problem: COPD (chronic obstructive pulmonary disease) Qualifiers: COPD type: unspecified COPD Qualified Code(s): J44.9 - Chronic obstructive pulmonary disease, unspecified Instructions: COPD (Chronic Obstructive Pulmonary Disease) (ED) Condition: Good Pt referred to PMD for follow-up: Yes IPMP verified?: No Additional Instructions: Please call your Family Physician as soon as possible to schedule a follow-up appointment. Allergies/Adverse Reactions: Allergies No Known Allergies Allergy (Unverified 10/14/18 08:05) Home Medications: Ambulatory Orders Amoxicillin/Potassium Clav [Amox Tr-K Clv 875-125 mg Tab] 1 each PO BID Atorvastatin Calcium 40 mg PO DAILY 10/14/18 Budesonide/Formoterol Fumarate [Symbicort 160-4.5 Mcg Inhaler] 1 puff IH DIRECTED 10/14/18 Cilostazol 100 mg PO DAILY 10/14/18 Clopidogrel Bisulfate [Clopidogrel] 75 mg PO DAILY 10/14/18 Ezetimibe 10 mg PO DAILY 10/14/18 Meloxicam [Mobic] 7.5 mg PO DAILY 10/14/18 Pantoprazole Sodium 40 mg PO DAILY 10/14/18 Tiotropium [place] [Spiriva Respimat] 4 gm IH DIRECTED 10/14/18 Zolpidem Tartrate 10 mg PO DAILY 10/14/18
[2018-10-14] MEDS ORDERED: D5%-NS-KCL 20 MEQ/L IV SOL 1,000 ML IV SCH (10:00)
[2018-10-14] MEDS ORDERED: SYMBICORT 160-4.5 MCG INHALER IH SCH ×2 (10:00→21:00)
[2018-10-14] MEDS ORDERED: ALBUTEROL 0.083% NEB NEB PRN (10:45)
[2018-10-14 10:46] VITALS: BMI 26.2
--- NOTE | 2018-10-14 10:46 | PCM ---
- Chief Complaint Chief Complaint: SOA, cough, congestion PCP Og Stapleton - History of Present Illness History of Present Illness: 77 yo WM presented to ED today at [address] Terrell. Temp noted to be 98.1, pulse 108, BP 171/74, RR 24 and O2 saturation 94%. Measured 5'8" and 172 lb. He did meet Sirs criteria with Tachycardia 108, RR>22, but afebrile [place] [id number]. 48 hour symptoms of intermittent mild to moderate URI symptoms, nasal congestion, sore throat, chest pain w/ deep inspiration and cough. He notes URI recently has worsened his symptoms, weather has changed this as well. Bronchodilators have helped with his breathing/cough. These have not helped the uri, nasal congestion however. No PND, no orthopnea, no fever, no chills, no chest pain w/ exertion, no pleuritic chest pain. Denied wheezing, hemoptysis, dizziness, calf pain, calf swelling, new edema, changes in weight, N/V/D, appetite change, inability to swallow. He has had these issues historically. Modifed wells criteria suggest PE low risk. He has had malaise/fatigue, with some cough/wheezing worsening, increased work of breathing , some MARK, sputum production increased and cough increase over last 48 hours. Historically w/ Dx of COPD, dyslipidemia, normal weight, former tobacco user. Labs in Er showed CBC: WBC 8.38, Hgb 12.5, plt 176. with normal differential. PT 9.9, INR 0.99, APTT 18.6. ABG showed pH 7.418 pac02 36.1, Hc03 23.3, sodium 136.7, cl 103.5, albumin 4.20. Independent interpretation of this data supports primary resp alkalosis with secondary metabolic acidosis. Influenza was negative. CMP: showed sodium 136.7, K- 3.72, cl 103.5, co2 22.9, bun 13.4, cr 0.61, glucose 181.1, calcium 9.56, AST was 27.6, alt 22.8. TI negative x 1. Neb treatment in ER at 8:27 and 9:49. Solumedrol 125 60mg daily ordered for ER. Josef Griffiths. CXR ordered but pending at time of my evaluation. He had home med of augmentin. I will d/c this and change to doxycycline to cover for URI/ COPD. Dr. Rojo personally Discussed case with me at 9:54 and chart reviewed. We reviewed the patient history, reviewed the imaging, labs, ABG. I discussed this with him personally. Placed into observational status 9:54 and patient seen by me. Home meds lipitor, symbicort, cilostazol, plavix, zetia, mobic, protonix, spiriva, ambien. Hold spiriva in hospital, duoneb QID, Albuterol in between PRN. We will continue the solu cortef today. A1C ordered. Freda patient and patient present in room 119. HE has had 3-4 months of URI/cough and congestion worsened by the winter months. MEt with pulmonology about 3 month ago and started cefdinir BID 09/24/18. Still not improving so they called in augmentin on 10/12/18 and he has just started this yesterday. He noted no improvement so far. He is able to articulate, hearing aids in place. Historical smoker. Worked at our hospital for a long time, retired 11 years, has 2 children, minimal ETOH, no tobacco. He feels that he is having increased WOB, +MARK, +cough, + sputum and meets criteria for COPD exacerbation. Will admit to observation. - Review of Systems Constitutional: weakness, fatigue Eyes: No: blurred vision, double-vision, discharge, itching, pain, redness, photophobia, other Ears: No: pain, bleeding, drainage, ringing, hearing loss, other Nose: congestion, discharge. No: bleeding, other Throat: pain. No: swelling, voice change, other Mouth: No: bleeding, pain, swelling, other Respiratory: cough, shortness of air, wheeze. No: hemoptysis, pain with breathing, other Cardiovascular: No: chest pain, left arm pain, diaphoresis, PND, orthopnea, edema, palpitations, syncope, other Gastrointestinal: No: abdominal pain, other, nausea, vomiting, diarrhea, melena , hematemesis, hematochezia, dysphagia, constipation Genitourinary: No: dysuria, hematuria, frequency, incontinence, flank pain, penile discharge, testicular pain, testicular swelling, other Neurological: No: headache, other, dizziness, seizure, numbness, weakness, speech difficulty, problems with walking, tremor, fainting Musculoskeletal: No: pain, swelling in joints, other Skin: No: rash, pruritus, lacerations, wounds, bruising, other Immunology: No: hives, itching, frequent infections, difficulty healing, other Hematology: No: easy bruising, easy bleeding, swollen glands, other Psychiatric: No: depression, anxiety, sleeplessness, hopelessness, suicidal, hallucinations, other Habits: No: tobacco use (former user of tobacco. ), substance use, alcohol use, other - Past Medical History Past Medical History: COPD stage II, Hyperlipidemia, history of DC, CAD, PAD, GERD. Former smoker. Arthritis. - Past Surgical History Past Surgical History: Back surgery. Cardiac stenting. Vascular surgery, he does not remember the name but prominent mid abdominal scar c/w femoral bypass. - Allergies Allergies/Adverse Reactions: Allergies Allergy/AdvReac Type Severity Reaction Status Date / Time No Known Allergies Allergy Unverified 10/14/18 08:05 - Medications Medications: Medications Generic Name Dose Route Start Last Admin Trade Name Freq PRN Reason Stop Dose Admin Albuterol/Ipratropium 1 vial 10/14/18 14:00 Duoneb NEB RTQID [facility] Amoxicillin/Clavulanate Potassium 1 tab 10/14/18 21:00 Augmentin 875-125 Mg Tab PO 10/17/18 20:59 BID [facility] Budesonide/Formoterol Fumarate 1 puff 10/14/18 10:00 Symbicort 160-4.5 Mcg Inhaler IH DIRECTED [facility] Cilostazol 100 mg 10/15/18 09:00 Pletal PO DAILY [facility] Clopidogrel Bisulfate 75 mg 10/15/18 09:00 Plavix PO DAILY [facility] Ezetimibe 10 mg 10/15/18 09:00 Zetia PO DAILY [facility] Sodium Chloride 1,000 mls @ 75 mls/hr 10/14/18 10:00 Sodium Chloride IV .[id number] [facility] Methylprednisolone Sodium Succinate 60 mg 10/14/18 10:00 Solu-Medrol 125 Mg IVP Q8HR [facility] Non-Formulary Medication 40 mg 10/15/18 09:00 Atorvastatin Calcium [Atorvastatin Calcium] PO DAILY [facility] Non-Formulary Medication 10 mg 10/15/18 09:00 Zolpidem Tartrate [Zolpidem Tartrate] PO DAILY [facility] Pantoprazole Sodium 40 mg 10/15/18 06:30 Protonix PO QDAC [facility] - Family History Past Family History: 7 brothers each with CA. Numerous with ETOH abuse, liver cancer. One with lung cancer. Prolonged tobacco history. 2 children, no reported concerns. CAD and pulmonary issues in mother and father. - Social History Past Social History: Former smoker. Former cleaning and maintenance worker, retired 11 years. He lives with Freda. - Body Composition Height: 5 ft 8 in Weight: 172 lb 4.8 oz Body Mass Index (BMI): 26.2 - Physical Examination HEENT: Vital Signs - 24 hr 10/14/18 10/14/18 07:57 10:24 Temperature 98.1 F 97.9 F Pulse Rate 108 H 78 Respiratory 24 14 Rate Blood Pressure 171/74 H O2 Sat by Pulse 94 L 97 Oximetry Constitutional: Appearance-No acute distress, Consistent with stated age. Orientation- Oriented x 3, alert Build and Nutrition-[age appropriate BMI is reasonable. General- Patient is pleasant and cooperative with the interview and exam. Integumentary: General-No rashes, ulcers or lesions. Palpation- Normal skin moisture/turgor. Skin is warm to touch, appropriate. Capillary refill is normal bilateral Upper and lower extremity. Prominent midline abdominal scar. Head/Neck: Head- normocephalic and atraumatic. Neck- without visible/palpable lumps or pulsations. Palpation- No bony tenderness about head/neck along frontal, occipital, temporal, parietal, mastoid, jawline, zygoma, orbit or any other location. NO temporal artery tenderness. No TMJ tenderness. Neck Supple. Thyroid-No thyromegaly, no nodules Eye: Bilaterally PERRLA, EOMI. No discharge. Upper and lower eyelids are normal. Sclera/conjunctiva normal without discharge. Cornea is normal and clear. Lens is normal. Eyeball appears normal. No ciliary flushing, no conjunctival injection. ENMT: Pinna- normal without tenderness or erythema. External auditory canal Left- normal without erythema or discharge, no excessive cerumen. External auditory canal Right-normal without erythema or discharge, no excessive cerumen. TM left- HEARING AID REMOVED. Lo/pearly, normal light reflex and anatomy mild tympanosclerosis. TM Right- Hearing aid removed. Lo/pearly, normal light reflex and anatomy mild tympanosclerosis.Hearing Assessment- normal to conversational speech w. hearing aid in place. Nose and sinus- No sinus tenderness along frontal/maxillary region. External appearance normal and midline. Nares- bilateral quiet airflow, no discharge. Nasal mucosa- No bleeding noted and no ulcerations observed. [place], moist. Turbinates boggy, mildly erythematous. Lips- normal color, moist without cracks/lesions Oral Cavity/Palate- hard/soft palate intact without lesions, oral mucosa pink and moist. Dentition assessed [dentures in place] Tongue normal midline. Oropharynx - no pharyngeal erythema, Uvula midline. No post nasal drip. No exudate. Salivary glands- Non tender to palpation CHEST/LUNG: Inspection- symmetric chest, mildly barrel chested. He talks in full sentences. Normal effort, no distress, no use of accessory muscles. Palpation- nontender sternum, ribline. No abnormal pulsations. Auscultation- Breath sounds diminished and coarse throughout all lung patel, tracheal sounds , bronchial sounds overlying sternum, Bronchovessicular sounds between scapulae posteriorly, vessicular breath sounds heard throughout periphery. Creaky sound with inhalation and exhalation throughout. No egophany, no e/o consolidation . Adventitious sounds- Scattered wheezes, rales, rhonchi. No obvious distress. CARDIOVASCULAR: Carotid artery- normal, no bruits or abnormal pulsations. Jugular vein- no pulsations. Palpation/Percussion- Normal PMI, no palpable thrill Auscultation- Regular rate and rhythm. No murmur noted in sitting, supine positions. Extremities- no digital clubbing, cyanosis, edema, increased warmth. ABDOMEN: Inspection- normal and no visible pulsations. Normal contour. Auscultation- Bowel sounds normal, no abdominal bruits. Palpation/Percussion- soft, non-tender, no rebound tenderness, no rigidity (guarding), no jar tenderness, no masses. Liver-no hepatomegaly, Spleen no splenomegaly, Hernias - none. Rectal not examined. Prominent central mid abdominal scar. Peripheral Vascular: Upper extremity Left- Normal temperature with pink nailbeds and no ulcerations. Upper extremity Right- Normal temperature with pink nailbeds and no ulcerations. Lower extremity- Normal temperature with pink nailbeds and no ulcerations. DP pulses 1+ bilaterally. Pedal hair reduced , leg skin is shiny. Edema- No edema. He has reasonable pulses. Bilateral feet with high arch. Nails look good. Musculoskeletal: Generalized-No generalized swelling or edema of extremities, no cyanosis, neurovascularly intact all four extremities. Upper extremity- Symmetrical posture. No visible deformity. Normal sensation along medial and lateral upper extremity proximally and distally. NO tenderness overlying shoulder, lateral/medial epicondyle. Microwave Engineer 5/5 and strength 5/5 bilateral UE. Elbow palpated, no tenderness overlying olecranon. Normal supination, pronation to active/passive ROM and to resisted rotation. Bicep insertion/tricep insertion appear normal without obvious pathology. Rotator cuff evaluated and intact. Normal wrist ROM bilaterally. Normal hand movement, intrinsic muscles of hands normal. No tenderness to palpation of hands/wrists/ elbows. Lower extremity- Hip: Not tender to palpation, no pain, no swelling, edema or erythema of surrounding tissue, normal strength and tone. Normal appearing hip ROM bilaterally without pain. Knee: Knee ROM normal. No tenderness overlying trochanters, no tenderness about patella, quad tendon, patellar tendon. No tenderness at tibial tuberosity. Ankle: normal ROM not tender to palpation along medial/lateral malleolus. Foot: Normal movement of toes, no tenderness bilateral feet/toes. Normal foot type. Spine/Ribs- No deformities, masses or tenderness, no known fractures, normal strength, Normal ROM. Normal stability No tenderness along C/T/L spine. Normal appearing ROM about spine. Neurological: General- Moves all 4 extremities symmetrically. Symmetrical face and body posture. Cranial nerves- individually evaluated II-XII and intact. PERRLA, Normal EOMI, visual/special senses appear intact, Face is symmetrical and normal sensation/movement, normal tongue, normal strength/posture of neck musculature. Reflexes- intact with DTR 2+ patellar, Achilles, bicep, brachial, tricep. Strength- 5/5 bilateral UE and LE. Soft touch- intact bilateral UE and LE. Temperature sensation- intact bilateral UE and LE. Neuropsych: Oriented- Person, place, time. (AAOx3), Mood/affect- normal and congruent. Able to articulate well. Speech-Normal speech, normal rate, normal tone, normal use of language, volume and coherence. Thought content- normal with ability to perform basic computations and apply abstract thought/reason. Associations- intact, no SI/HI, no hallucinations, delusions, obsessions. Judgment/insight- Appropriate. Memory-Recall intact, remote and recent memory intact. Knowledge- Age appropriate fund of knowledge, concentration and attention span normal. Lymphatic: Head/Neck- normal size and non tender to palpation. Axillary- normal size and non tender to palpation. Femoral and Inguinal- normal size and non tender to palpation. - Lab/Tests/Diagnostic Imaging Lab/Tests/Diagnostic Imaging: Laboratory Last Values WBC 8.38 K/ul (4.2-10.2) 10/14/18 08:35 RBC 4.17 10^6/ul (4.70-6.10) L 10/14/18 08:35 Hgb 12.5 g/dl (14.0-18.0) L 10/14/18 08:35 Hct 38.1 % (42.0-52.0) L 10/14/18 08:35 MCV 91.4 fl (80.0-94.0) 10/14/18 08:35 MCH 30.0 pg (27.0-31.0) 10/14/18 08:35 MCHC 32.8 (31.8-35.4) 10/14/18 08:35 RDW Coeff of Miquel 13.5 % (11.6-14.8) 10/14/18 08:35 Plt Count 176 10^3/uL (140-440) 10/14/18 08:35 Immature Gran % (Auto) 0.4 % (0.0-5.0) 10/14/18 08:35 Neut % (Auto) 78.3 10/14/18 08:35 Lymph % (Auto) 12.3 (10.0-50.0) 10/14/18 08:35 [place] % (Auto) 6.8 (0-10) 10/14/18 08:35 Eos % (Auto) 1.6 % (0.0-7.0) 10/14/18 08:35 Baso % (Auto) 0.6 % (0.0-3.0) 10/14/18 08:35 Immature Gran # (Auto) 0.0 (0.0-1.0) 10/14/18 08:35 Neut # (Auto) 6.6 K/ul (2.0-6.9) 10/14/18 08:35 Lymph # (Auto) 1.0 K/uL (0.60-3.4) 10/14/18 08:35 [place] # (Auto) 0.6 K/uL (0.4-2.0) 10/14/18 08:35 Eos # (Auto) 0.1 K/ul (0.0-0.7) 10/14/18 08:35 Baso # (Auto) 0.1 K/uL (0-0.2) 10/14/18 08:35 PT 9.9 SEC (9.3-11.0) 10/14/18 08:35 INR 0.99 SI (0.0-3.9) 10/14/18 08:35 APTT 18.6 SEC (23.9-40.0) L 10/14/18 08:35 Puncture Site Rbrach 10/14/18 08:27 O2 Saturation 96.0 % (95-100) 10/14/18 08:27 ABG pH 7.418 (7.35-7.45) 10/14/18 08:27 ABG pCO2 36.1 mmHg (35-45) 10/14/18 08:27 ABG pO2 81.0 mmHg (85-100) L 10/14/18 08:27 ABG HCO3 23.3 (22.0-26.0) 10/14/18 08:27 ABG Total CO2 24 (22.0-28.0) 10/14/18 08:27 ABG Base Excess -1 (-2.0-2.0) 10/14/18 08:27 FiO2 % 21.0 % 10/14/18 08:27 Sodium 136.7 mmol/L (134.5-145) 10/14/18 08:35 Potassium 3.72 mmol/L (3.5-5.1) 10/14/18 08:35 Chloride 103.5 mmol/L (98-107) 10/14/18 08:35 Carbon Dioxide 22.9 mmol/L (22-30.0) 10/14/18 08:35 Anion Gap 14.02 10/14/18 08:35 BUN 13.4 mg/dL (9-20) 10/14/18 08:35 Creatinine 0.61 mg/dL (0.60-1.10) 10/14/18 08:35 Estimated GFR (MDRD) 128.00 mL/min 10/14/18 08:35 BUN/Creatinine Ratio 21.96 10/14/18 08:35 Glucose 181.1 mg/dL (74-106) H 10/14/18 08:35 Calcium 9.56 mg/dL (8.4-10.2) 10/14/18 08:35 Total Bilirubin 0.45 mg/dL (0.2-1.3) 10/14/18 08:35 AST 27.6 U/L (17-59) 10/14/18 08:35 ALT 22.8 U/L (0-50) 10/14/18 08:35 Alkaline Phosphatase 62.8 U/L (56-119) 10/14/18 08:35 Total Creatine Kinase 34.8 U/L (55-170) L 10/14/18 08:35 Troponin I < 0.012 ng/ml (0.0000-0.120) 10/14/18 08:35 Total Protein 6.59 g/dL (6.3-8.2) 10/14/18 08:35 Albumin 4.20 g/dL (3.5-5.0) 10/14/18 08:35 Globulin 2.39 10/14/18 08:35 Albumin/Globulin Ratio 1.75 10/14/18 08:35 Influ A Molecular Assay Negative by naat (NEGATIVE) 10/14/18 08:35 Influ B Molecular Assay Negative by naat (NEGATIVE) 10/14/18 08:35 CXR: Personally reviewed. Hallie in normal location. He has prominent hyperexpanded lungs, bony windows look okay. Diaphragm appears to be stable and borders are clear. Blebbing superiory. SOme vascular congestion appears present. He has some opacity along right medial lower lobe which could represent edema ABG: Primary respiratory alkalosis, with secondary metabolic acidosis. - Assessment (1) CAD (coronary artery disease) Status: Acute Code(s): I25.10 - ATHSCL HEART DISEASE OF [place] CORONARY ARTERY W/O ANG PCTRS SNOMED Code(s): 89704419 (2) PAD (peripheral artery disease) Status: Acute Code(s): I73.9 - PERIPHERAL VASCULAR DISEASE, UNSPECIFIED SNOMED Code(s): 458471508, 667763126 (3) GERD (gastroesophageal reflux disease) Status: Acute Code(s): K21.9 - GASTRO-ESOPHAGEAL REFLUX DISEASE WITHOUT ESOPHAGITIS SNOMED Code(s): 369774330 (4) Hypertension Status: Acute Code(s): I10 - ESSENTIAL (PRIMARY) HYPERTENSION SNOMED Code(s) : 19993511 (5) COPD (chronic obstructive pulmonary disease) Status: Acute Code(s): J44.9 - CHRONIC OBSTRUCTIVE PULMONARY DISEASE, UNSPECIFIED SNOMED Code(s): 33028614 Qualifiers: COPD type: unspecified COPD Qualified Code(s): J44.9 - Chronic obstructive pulmonary disease, unspecified (6) Hyperglycemia Status: Acute Code(s): R73.9 - HYPERGLYCEMIA, UNSPECIFIED SNOMED Code(s): 98629186 - Plan Plan: COPD: Suspect acute COPD exacerbation with lesser possibility of pneumonia. I have looked at CXR and had radiology look at the medial portion of the right diaphgram. IT appeared to have some fullness but this was read as negative. I thought it was likely releated cardiac structures but did not appear to be pneumonia, pulm edema/pleural effusion. We reviewed smoking history, former smoker. We discussed GOLD criteria. Gold defines exacerbation of COPD as acute event leading to worsening of respiratory symptoms with 3 cardinal features: increased cough freq/severity, sputum production volume/quality, worsened Dyspnea. He has met 3/3 cardinal features. Risk factors for exacerbations include advancing age, duration of COPD, history of abx use, prev hospitalization within past 12 months, mucus production, comorbidities to include heart disease, CHF, DM, and exposures. Respiratory infections are the most likely trigger in up to 70% of cases to include viral processes such as Rhino (warmer months), madrigal, adeno, parainfluenza (cooler months), allergic process, viral/bacterial pneumonia. Studies have shown benefit to bronchodilators (grade 1B) and show reduced time to resolution of cough. Anticholinergic agents are often used in combination as studies show enhanced bronchodilation beyond that seen by either agent alone. Caution advised if any history of BPH or similar in male patients. Systemic glucocorticoids have been shown to have beneficial effect. Recommendations include dosing steroid equivalent to prednisone 40 mg daily x 5 days. Inhaled GC are of minimal benefit in acute exacerbation, but should not be stopped. We discussed that studies suggest use of abx is controversial. These are recommended to be avoided for simple bronchitis. The patient/family voiced understanding. - Admit observation - O2 if needed to maintain 92-98% - Duoneb QID - Albuterol q 4 hours prn - Stop augmentin - Change to doxy 100 BID. - Solucortef IV 60 daily today. - D/C to prednisone 40mg daily x 5 days at d/c. - Mucinex can be of benefit R/B/A d/w patient. - Reviewed LAMA, LABA, GC, ASHLEY agents. - Continue home symbicort 2 puffs BID. - Vitals q 8 hours - Tele overnight Essential HTN: Was 171/74 in ER. Dropped to 148/68 and 154/66 on the floor. Continue to monitor. Insomnia: HOme ambien to continue Hyperlipidemia: continue home zetia and liptor. CAD/PAD: Continue cilostazole. Continue plavix. Hyperglycemia: A1C ordered. GERD: On protonix PO at home. Continue this agent. DVT Prophy: Lovenox 40. Diet: REgular diet. - A1C ordered. Disposition: HE appears to have chronic COPD and is not to far off of his baseline status. I will continue to monitor over next 24 hours. Current plan is 1-2 days and then d/c home. R/B/a to doxy d/w family today. Vitals better on floor. Nebs ordered as listed. Steroids to continue, may increase his sugars. We spent >70 minutes spent in admission today.
[2018-10-14] MEDS ORDERED: LOVENOX SUBCUT SCH (11:00)
[2018-10-14] MEDS: SODIUM CHLORIDE 1,000 ML IV SCH ×2 (11:04→23:28)
[2018-10-14] MEDS: SOLU-MEDROL 125 MG IVP SCH ×3 (11:04→20:56)
[2018-10-14] MEDS: DOXYCYCLINE HYCLATE PO SCH ×2 (11:05→20:56)
--- NOTE | 2018-10-14 11:26 | DI ---
EXAM: Two-view chest HISTORY: Cough TECHNIQUE: Frontal and lateral views of the chest were obtained. FINDINGS: The heart is normal size. Lungs are clear. The pulmonary vasculature appears normal. Th e costophrenic angles are sharp. IMPRESSION: No active cardiopulmonary disease.
[2018-10-14] MEDS ORDERED: DUONEB NEB SCH (12:00)
[2018-10-14] MEDS: DUONEB NEB SCH ×2 (13:21→20:20)
[2018-10-14] MEDS ORDERED: NON-FORMULARY MEDICATION (Zolpidem Tartrate [Zolpidem Tartrate] 10 MG) PO SCH (21:00)
[2018-10-14] MEDS ORDERED: PLETAL PO SCH (21:00)
[2018-10-14] MEDS ORDERED: AUGMENTIN 875-125 MG TAB PO SCH (21:00)
[2018-10-15] MEDS: DUONEB NEB SCH (04:40)
[2018-10-15] MEDS: SOLU-MEDROL 125 MG IVP SCH (05:45)
[2018-10-15 06:00] VITALS: BP 129/61; TEMP 97.7
[2018-10-15] MEDS ORDERED: PROTONIX PO SCH (06:30)
--- NOTE | 2018-10-15 07:38 | PCM.DC ---
Final Diagnosis: COPD (chronic obstructive pulmonary disease) (Acute): Improved with overnight nebs, continued inhaled GC/LABA and held his LAMA and instead used duonebs in hospital. Steroids/abx changed to doxycycline. GERD (gastroesophageal reflux disease) (Chronic): STABLE on PPI Hyperglycemia (Acute): Steroidal effect, A1C normal at 5.92. Hypertension (Chronic): STABLE PAD (peripheral artery disease) (Chronic): STABLE on home meds. Insomnia (CHRONIC): Stable on home meds Tachycardia (ACUTE): Telemetry showed ST w/ 1st degree AVB. He did a lot of pacing. [place] fine no Chest pain, SOA better. PCP Dr. Stapleton Admit Date 10/14/18 Observation: DR. Bae Discharge Date 10/15/18: Dr. Bae (1) CAD (coronary artery disease) Status: Acute Code(s): I25.10 - ATHSCL HEART DISEASE OF [place] CORONARY ARTERY W/O ANG PCTRS SNOMED Code(s): 73680532 (2) PAD (peripheral artery disease) Status: Acute Code(s): I73.9 - PERIPHERAL VASCULAR DISEASE, UNSPECIFIED SNOMED Code(s): 048559317, 750556080 (3) GERD (gastroesophageal reflux disease) Status: Acute Code(s): K21.9 - GASTRO-ESOPHAGEAL REFLUX DISEASE WITHOUT ESOPHAGITIS SNOMED Code(s): 764969412 (4) Hypertension Status: Acute Code(s): I10 - ESSENTIAL (PRIMARY) HYPERTENSION SNOMED Code(s) : 14471268 (5) COPD (chronic obstructive pulmonary disease) Status: Acute Code(s): J44.9 - CHRONIC OBSTRUCTIVE PULMONARY DISEASE, UNSPECIFIED SNOMED Code(s): 94335740 Qualifiers: COPD type: unspecified COPD Qualified Code(s): J44.9 - Chronic obstructive pulmonary disease, unspecified (6) Hyperglycemia Status: Acute Code(s): R73.9 - HYPERGLYCEMIA, UNSPECIFIED SNOMED Code(s): 07052983 Reason for Hospitalization: SOA/Chest congestion/Fatigue/malaise Prognosis at Discharge: Good: Improved, feeling much better. Condition at Discharge: Improved, felt better, better energy, deeper inspiration, less fatigue reported. Medications at Discharge: Ambulatory Orders Medication Instructions Recorded Atorvastatin Calcium 40 mg PO DAILY 10/14/18 Budesonide/Formoterol Fumarate 1 puff IH DIRECTED 10/14/18 [Symbicort 160-4.5 Mcg Inhaler] Cilostazol 100 mg PO DAILY 10/14/18 Clopidogrel Bisulfate [Clopidogrel] 75 mg PO DAILY 10/14/18 Ezetimibe 10 mg PO DAILY 10/14/18 Meloxicam [Mobic] 7.5 mg PO DAILY 10/14/18 Pantoprazole Sodium 40 mg PO DAILY 10/14/18 Tiotropium [place] [Spiriva 4 gm IH DIRECTED 10/14/18 Respimat] Zolpidem Tartrate 10 mg PO DAILY 10/14/18 Albuterol Sulfate 0.083% Neb 1 vial NEB RTQ4H PRN 30 Days #30 10/15/18 [Albuterol 0.083% Neb] vial.neb Doxycycline Hyclate 100 mg PO Q12HR 4 Days #7 capsule 10/15/18 Prednisone 40 mg PO DAILYWM 4 Days #8 tablet 10/15/18 Lab/Diagnostics: Laboratory Last Values WBC 9.27 K/ul (4.2-10.2) 10/15/18 04:35 RBC 3.93 10^6/ul (4.70-6.10) L 10/15/18 04:35 Hgb 11.9 g/dl (14.0-18.0) L 10/15/18 04:35 Hct 36.1 % (42.0-52.0) L 10/15/18 04:35 MCV 91.9 fl (80.0-94.0) 10/15/18 04:35 MCH 30.3 pg (27.0-31.0) 10/15/18 04:35 MCHC 33.0 (31.8-35.4) 10/15/18 04:35 RDW Coeff of Miqu[place] 13.4 % (11.6-14.8) 10/15/18 04:35 Plt Count 221 10^3/uL (140-440) 10/15/18 04:35 Immature Gran % (Auto) 0.2 % (0.0-5.0) 10/15/18 04:35 Neut % (Auto) 89.6 10/15/18 04:35 Lymph % (Auto) 9.1 (10.0-50.0) L 10/15/18 04:35 [place] % (Auto) 1.1 (0-10) 10/15/18 04:35 Eos % (Auto) 0.0 % (0.0-7.0) 10/15/18 04:35 Baso % (Auto) 0.0 % (0.0-3.0) 10/15/18 04:35 Immature Gran # (Auto) 0.0 (0.0-1.0) 10/15/18 04:35 Neut # (Auto) 8.3 K/ul (2.0-6.9) H 10/15/18 04:35 Lymph # (Auto) 0.8 K/uL (0.60-3.4) 10/15/18 04:35 [place] # (Auto) 0.1 K/uL (0.4-2.0) L 10/15/18 04:35 Eos # (Auto) 0.0 K/ul (0.0-0.7) 10/15/18 04:35 Baso # (Auto) 0.0 K/uL (0-0.2) 10/15/18 04:35 PT 9.9 SEC (9.3-11.0) 10/14/18 08:35 INR 0.99 SI (0.0-3.9) 10/14/18 08:35 APTT 18.6 SEC (23.9-40.0) L 10/14/18 08:35 Puncture Site Rbrach 10/14/18 08:27 O2 Saturation 96.0 % (95-100) 10/14/18 08:27 ABG pH 7.418 (7.35-7.45) 10/14/18 08:27 ABG pCO2 36.1 mmHg (35-45) 10/14/18 08:27 ABG pO2 81.0 mmHg (85-100) L 10/14/18 08:27 ABG HCO3 23.3 (22.0-26.0) 10/14/18 08:27 ABG Total CO2 24 (22.0-28.0) 10/14/18 08:27 ABG Base Excess -1 (-2.0-2.0) 10/14/18 08:27 FiO2 % 21.0 % 10/14/18 08:27 Sodium 137.0 mmol/L (134.5-145) 10/15/18 04:35 Potassium 3.98 mmol/L (3.5-5.1) 10/15/18 04:35 Chloride 104.9 mmol/L (98-107) 10/15/18 04:35 Carbon Dioxide 22.5 mmol/L (22-30.0) 10/15/18 04:35 Anion Gap 13.58 10/15/18 04:35 BUN 14.0 mg/dL (9-20) 10/15/18 04:35 Creatinine 0.68 mg/dL (0.60-1.10) 10/15/18 04:35 Estimated GFR (MDRD) 113.00 mL/min 10/15/18 04:35 BUN/Creatinine Ratio 20.58 10/15/18 04:35 Glucose 182.7 mg/dL (74-106) H 10/15/18 04:35 Hemoglobin A1c 5.92 (4.0-6.0) 10/14/18 08:35 Lactic Acid 1.55 mmol/L (0.7-2.1) 10/14/18 10:55 Calcium 9.59 mg/dL (8.4-10.2) 10/15/18 04:35 Total Bilirubin 0.42 mg/dL (0.2-1.3) 10/15/18 04:35 AST 22.7 U/L (17-59) 10/15/18 04:35 ALT 23.9 U/L (0-50) 10/15/18 04:35 Alkaline Phosphatase 58.5 U/L (56-119) 10/15/18 04:35 Total Creatine Kinase 34.8 U/L (55-170) L 10/14/18 08:35 Troponin I < 0.012 ng/ml (0.0000-0.120) 10/14/18 08:35 Total Protein 6.19 g/dL (6.3-8.2) L 10/15/18 04:35 Albumin 3.94 g/dL (3.5-5.0) 10/15/18 04:35 Globulin 2.25 10/15/18 04:35 Albumin/Globulin Ratio 1.75 10/15/18 04:35 Procalcitonin < 0.05 ng/mL (<0.05) 10/14/18 10:55 Influ A Molecular Assay Negative by naat (NEGATIVE) 10/14/18 08:35 Influ B Molecular Assay Negative by naat (NEGATIVE) 10/14/18 08:35 WBC Trends 10/14/18 10/15/18 Range/Units 08:35 04:35 WBC 8.38 9.27 (4.2-10.2) K/ul H/H Trends 10/14/18 10/15/18 Range/Units 08:35 04:35 Hgb 12.5 L 11.9 L (14.0-18.0) g/dl Hct 38.1 L 36.1 L (42.0-52.0) % CXR: Personally reviewed. Hallie in normal location. He has prominent hyperexpanded lungs, bony windows look okay. Diaphragm appears to be stable and borders are clear. Blebbing superiory. SOme vascular congestion appears present. He has some opacity along right medial lower lobe which could represent edema ABG: Primary respiratory alkalosis, with secondary metabolic acidosis. Education Provided to Patient and Family: 1. Please call your Family Physician as soon as possible to schedule a follow- up appointment in next 7 days. 2. Stop the Augmentin antibiotic. I have changed this to a new antibiotic called doxycycline. 3. Dose of doxycycline tonight and then another 3 days. Take with full glass of water. 4. Steroid to continue 3 more days. 5. Activity no restrictions 6. Diet: Regular diet without restrictions. 7. Encouraged ambulation. 8. Encouraged deep breathing. 9. Incentive spirometer and flutter device encouraged. Follow up with pulmonology. 10. Return to ER on an as needed basis. Follow-ups: 1. Dr. Stapleton in 1 week. 2. F/U w/ Pulmonology for next scheduled appt. Disposition: HOME SELF-CARE Hospital Course: 77 [address] Og Stapleton presented to [facility] ED 10/14/18 at [address] Terrell. Temp noted to be 98.1, pulse 108, BP 171/74, RR 24 and O2 saturation 94%. Measured 5'8" and 172 lb. He did meet Sirs criteria with Tachycardia 108, RR>22, but afebrile and wbc [place] [id number]. 48 hour symptoms of intermittent mild to moderate URI symptoms, nasal congestion, sore throat, chest pain w/ deep inspiration and cough. He noted URI recently worsening, weather changes up and down have caused him issues. Bronchodilators have helped with his breathing/cough. These have not helped the uri, nasal congestion however. No PND, no orthopnea, no fever, no chills, no chest pain w / exertion, no pleuritic chest pain. Denied wheezing, hemoptysis, dizziness, calf pain, calf swelling, new edema, changes in weight, N/V/D, appetite change, inability to swallow. He has had these issues historically. He has had malaise /fatigue, with some cough/wheezing worsening, increased work of breathing, some MARK, sputum production increased and cough increase over last 48 hours. Historically w/ Dx of COPD, dyslipidemia, normal weight, former tobacco user. Labs in Er showed CBC: WBC 8.38, Hgb 12.5, plt 176. with normal differential. PT 9.9, INR 0.99, APTT 18.6. ABG showed pH 7.418 pac02 36.1, Hc03 23.3, sodium 136.7, cl 103.5, albumin 4.20. Independent interpretation of this data supports primary resp alkalosis with secondary metabolic acidosis. Influenza was negative. CMP: showed sodium 136.7, K- 3.72, cl 103.5, co2 22.9, bun 13.4, cr 0.61, glucose 181.1, calcium 9.56, AST was 27.6, alt 22.8. TI negative x 1. Neb treatment in ER at 8:27 and 9:49. Solumedrol 125 60mg daily ordered for ER. Ambien QHS. CXR negative. He had home med of augmentin. This was d/c and changed to doxycycline BID. He was informed to take this with full glass of water and to use sun protection. Placed into observational status 9:54 room 119- 1 and patient seen by me. Home meds lipitor, symbicort, cilostazol, plavix, zetia, mobic, protonix, spiriva, ambien continued. Hold spiriva in hospital, duoneb QID, Albuterol in between PRN. We will continue the solu cortef today. A1C ordered. Freda patient and patient present in room 119. HE has had 3-4 months of URI/cough and congestion worsened by the winter months. MEt with pulmonology about 3 weeks ago and started cefdinir BID 09/24/18. Still not improving so they called in augmentin on 10/12/18 and he has just started this . He noted no improvement so far. He was able to articulate, hearing aids in place. Historical smoker. Worked at our hospital for a long time, retired 11 years, has 2 children, minimal ETOH, no tobacco. He feels that he is having increased WOB, +MARK, +cough, + sputum and meets criteria for COPD exacerbation. Admitted to observation. Overnight he did well, improving. WBC increased to 9.27, likely demargination. His hgb dropped from 12.5 to 11.9 and plt increased to 221 from 176. The CMP remained normal. A1C was 5.92, hyperglycemia likely steroidal effect and no DM based on a1c. HR yesterday 92-133. He did a lot of pacing and his HR increased w/ activity. Tele showed ST w/ 1st degree AVG. BP was great today 119/66 and 129/61. Was up a little at admit, he denied any missed meds. He remained 96% saturation on oxygen. He ate 25% of his lunch and 75% of his dinner yesterday. Accuchecks were 93/192/211/211/183. These were not corrected. His urine output was goo 0.63ml/kg/hr last 12 hours. HE feels better, feels that the therapy has improved his fatigue, SOA. He has no CP. NO BM in hospital. He was up and moving, which he has not done in several days. He requested to go home today and I told him I thought that was reasonable. Patient to be discharged from hospital. Maximized care based on this hospital stay. Labs this am are reasonable. His vitals were reasonable and his symptoms subjectively were improved. I believe he is ready to go home. Day of D/C Exam: Vital Signs - 24 hr 10/14/18 10/14/18 10/14/18 07:57 10:24 14:00 Temperature 98.1 F 97.9 F 97.6 F Pulse Rate 108 H 78 92 H Respiratory 24 14 20 Rate Blood Pressure 171/74 H 151/72 H O2 Sat by Pulse 94 L 97 96 Oximetry 10/14/18 10/14/18 10/15/18 17:59 21:06 02:00 Temperature 97.7 F 98.6 F 98.0 F Pulse Rate 106 H 106 H 106 H Respiratory 18 18 14 Rate Blood Pressure 143/68 H 145/68 H 119/66 O2 Sat by Pulse 95 95 96 Oximetry 10/15/18 05:59 Temperature 97.7 F Pulse Rate 133 H Respiratory 20 Rate Blood Pressure 129/61 O2 Sat by Pulse 96 Oximetry Constitutional: Appearance-No acute distress, Consistent with stated age. Orientation- Oriented x 3, alert Build and Nutrition-[age appropriate BMI is reasonable. General- Patient is pleasant and cooperative with the interview and exam. He is up and walking around room this am. Breathing deeper, feels better /looks better. Integumentary: Prominent midline abdominal scar. ENMT: Hearing aids in place. Nose and sinus- No sinus tenderness along frontal /maxillary region. External appearance normal and midline. Nares- bilateral quiet airflow, no discharge. Nasal mucosa- No bleeding noted and no ulcerations observed. [place], moist. Turbinates boggy, mildly erythematous. Lips- normal color , moist without cracks/lesions Oral Cavity/Palate- hard/soft palate intact without lesions, oral mucosa pink and moist. Dentition assessed [dentures in place] Tongue normal midline. Oropharynx- no pharyngeal erythema, Uvula midline. No post nasal drip. No exudate. Salivary glands- Non tender to palpation CHEST/LUNG: Inspection- symmetric chest, mildly barrel chested. He talks in full sentences. Normal effort, no distress, no use of accessory muscles. Palpation- nontender sternum, ribline. No abnormal pulsations. Auscultation- Breath sounds diminished and coarse throughout all lung patel, tracheal sounds , bronchial sounds overlying sternum, Bronchovessicular sounds between scapulae posteriorly, vessicular breath sounds heard throughout periphery. Creaky sound with inhalation and exhalation throughout. Still w/o e/o consolidation . Adventitious sounds- Scattered wheezes, rales, rhonchi. No obvious distress. More wheezes today. He likely is breathing deeper with upright posture. CARDIOVASCULAR: Carotid artery- normal, no bruits or abnormal pulsations. Jugular vein- no pulsations. Palpation/Percussion- Normal PMI, no palpable thrill Auscultation- Regular rate and rhythm. No murmur noted in sitting, supine positions. Extremities- no digital clubbing, cyanosis, edema, increased warmth. ABDOMEN: Inspection- normal and no visible pulsations. Normal contour. Auscultation- Bowel sounds normal, no abdominal bruits. Palpation/Percussion- soft, non-tender, no rebound tenderness, no rigidity (guarding), no jar tenderness, no masses. Liver-no hepatomegaly, Spleen no splenomegaly, Hernias - none. Rectal not examined. Prominent central mid abdominal scar. Peripheral Vascular: Lower extremity- Normal temperature with pink nailbeds and no ulcerations. DP pulses 1+ bilaterally. Pedal hair reduced, leg skin is shiny. Edema- No edema. He has reasonable pulses. Bilateral feet with high arch. Musculoskeletal: Generalized-No generalized swelling or edema of extremities, no cyanosis, neurovascularly intact all four extremities. Neurological: General- Moves all 4 extremities symmetrically. Symmetrical face and body posture. Cranial nerves- individually evaluated II-XII and intact. PERRLA, Normal EOMI, visual/special senses appear intact, Face is symmetrical and normal sensation/movement, normal tongue, normal strength/posture of neck musculature. Neuropsych: Oriented- Person, place, time. (AAOx3), Mood/affect- normal and congruent. Able to articulate well. Speech-Normal speech, normal rate, normal tone, normal use of language, volume and coherence. Thought content- normal with ability to perform basic computations and apply abstract thought/reason. Associations- intact, no SI/HI, no hallucinations, delusions, obsessions. Judgment/insight- Appropriate. Memory-Recall intact, remote and recent memory intact. Knowledge- Age appropriate fund of knowledge, concentration and attention span normal. Lymphatic: Head/Neck- normal size and non tender to palpation. Plan: 1. Please call your Family Physician as soon as possible to schedule a follow- up appointment in next 7 days. 2. Stop the Augmentin antibiotic. I have changed this to a new antibiotic called doxycycline. 3. Dose of doxycycline tonight and then another 3 days. Take with full glass of water. 4. Steroid to continue 3 more days. 5. Activity no restrictions 6. Diet: Regular diet without restrictions. 7. Encouraged ambulation. 8. Encouraged deep breathing. 9. Incentive spirometer and flutter device encouraged. Follow up with pulmonology. 10. Return to ER on an as needed basis. >30 minutes spent in discharging patient today.
[2018-10-15] MEDS ORDERED: PLAVIX PO SCH (09:00)
[2018-10-15] MEDS ORDERED: PLETAL PO SCH (09:00)
[2018-10-15] MEDS ORDERED: ZETIA PO SCH (09:00)
[2018-10-15] MEDS ORDERED: NON-FORMULARY MEDICATION (Atorvastatin Calcium [Atorvastatin Calcium] 40 MG) PO SCH (09:00)
== END 2018-10-15 08:50 | disposition home or self-care (01) ==
LOC: ED 07:56 → MEDSURG B 09:59
PROVIDERS: ADMIT Family Medicine; ATTEND Family Medicine
DX: J44.9 Chronic obstructive pulmonary disease, unspecified (principal); R05 Cough; R09.81 Nasal congestion; J06.9 Acute upper respiratory infection, unspecified; R53.81 Other malaise; R06.2 Wheezing; I25.10 Atherosclerotic heart disease of native coronary artery without angina pectoris; I73.9 Peripheral vascular disease, unspecified; K21.9 Gastro-esophageal reflux disease without esophagitis; I10 Essential (primary) hypertension; R73.9 Hyperglycemia, unspecified
CPT/HCPCS: 36415; 80053; 82550; 82803; 82962; 83036; 83605; 84145; 84484; 85025; 85610; 85730; 87502; 93005; 93010; 94640; 97802; 99284

== ENCOUNTER 2018-11-01 09:41 | Outpatient (RCR) ==
[2018-11-15 13:06] VITALS: BP 102/50
== END 2018-11-16 23:59 ==
LOC: PUL.REHAB 09:41
PROVIDERS: ATTEND Internal Medicine Pulmonary Disease
DX: J44.9 Chronic obstructive pulmonary disease, unspecified (principal)

== ENCOUNTER 2019-01-17 07:23 | Outpatient (RCR) | payer OTHER ==
[2019-02-12 13:08] VITALS: BP 124/58
== END 2019-02-16 23:59 ==
LOC: PUL.REHAB 07:23
PROVIDERS: ATTEND Internal Medicine Pulmonary Disease
DX: J44.9 Chronic obstructive pulmonary disease, unspecified (principal)

== ENCOUNTER 2019-07-17 06:16 | Inpatient (IN) ==
[2019-07-17] MEDS ORDERED: DILAUDID 1 MG/ML SYRINGE IM STA (06:27)
--- NOTE | 2019-07-17 06:47 | ED.PDOC ---
General ED Provider: Dr. ANNE CASTANON Chief Complaint: Back Pain Stated Complaint: Patient states that he has history of back pain following a fall down some steps last month with fracture of T6. He has been taking Golden and flexeril but pain got worse after he fell again two days ago. Continues to wear a back and chest brace. Pain also radiates to the Right scapular and right anterior chest wall area. Time Seen by Physician: 06:35 Mode of Arrival: Wheelchair Information Source: Patient and Family Primary Care Provider: RACIEL JEFFREY Nursing and Triage Documentation Reviewed and Agree: Yes Does patient meet sepsis criteria?: No System Inflammatory Response Syndrome: Not Applicable Sepsis Protocol: For patient's 13 years and over: Temp is 96.8 and below OR 101 and greater Pulse >90 BPM Resp >20/minute Acutely Altered Mental Status Are patient's symptoms suggestive of a new infection, such as: -Pneumonia -Skin, Soft Tissue -Endocarditis -UTI -Bone, Joint Infection -Implantable Device -Acute Abdominal Infection -Wound Infection -Meningitis -Blood Stream Catheter Infection -Unknown Musculoskeletal Complaint Exam Back Pain Complaint/Exam Mechanism of Injury: Reports Trauma (Fell two day ago and has a history of fall in Dec with Fx to the T6) Onset/Duration: 1 month ago worse in the past few days despite use of Golden and Flexeril Symptoms Are: Still present Timing: Constant Episodes Lasting: Days Initial Severity: Severe Current Severity: Severe Location: Reports Diffuse Character: Reports Spasmodic Aggravating: Reports Movements and Cough Alleviating: Reports None Associated Signs and Symptoms: Denies Swelling, Redness, Bruising, Fever, Weak ness, Numbness, Tingling, Abdominal pain, Flank pain, Bladder incontinence, Bowel incontinence, Weight loss and Pain with weight bearing Related History: Reports Previous back injury (one month ago ) TAD Risk Factors: Reports Hypertension AAA Risk Factors: Reports Hypertension Epidural Abcess Risk Factors: Reports None Focal Tenderness: Yes Paraspinal Muscle Tenderness: Yes Paraspinal Muscle Spasm: Yes Scoliosis: No Lordosis: No Kyphosis: No SLR Test: Right Negative and Left Negative Hip Motion Testing Pain: Right Negative and Left Negative Focal Weakness: Present None Focal Sensory Loss: Present None Gait: Present Normal Back Picture: 1. pain and Tenderness 2. Radiated pain Differential Diagnoses: Arthritis, Fracture, Herniated Disk, Strain and Sprain Review of Systems Review Of Systems Constitutional: Reports No symptoms Eyes: Reports No symptoms Ears, Nose, Mouth, Throat: Reports No symptoms Respiratory: Reports Cough Cardiac: Reports Chest pain (right upper back to right chest wall area) GI: Reports No symptoms : Reports No symptoms Musculoskeletal: Reports No symptoms Skin: Reports No symptoms Neurological: Reports Anxiety Endocrine: Reports No symptoms Hematologic/Lymphatic: Reports No symptoms All Other Systems: Reviewed and Negative [facility] Social History Smoking and tobacco status: Former smoker Substance use type: does not use History of recent travel: No Physical Exam Physical Exam Appearance: Reports Ill-appearing Ill-appearing: Mild Pain Distress: Severe Eyes: Reports Conjunctiva clear ENT: Reports Nose normal and Oropharynx normal Neck: Supple Respiratory: Reports Breath sounds diminished and Rhonchi Cardiovascular: Reports RRR, Pulses normal, No rub and No murmur GI/: Reports Soft, Nontender and No masses Musculoskeletal: Reports Normal strength, No edema and Limited ROM (if the upper back ) Skin: Reports Warm, Dry and Normal color Neurological: Reports Sensation intact and Motor intact Psychiatric: Reports Anxious Physician Notification Case Discussed Endorsed To/Discussed With: Dr Mason Time of Discussion: 06:59 Critical Care Note Critical Care Note Total Time (mins): 0 Course Course Orders, Labs, Meds: Orders Category Date Time Status Hydromorphone HCl [Dilaudid 1 mg/ml Syringe] MEDS 07/17/19 06:27 Discontinued 1 mg IM ONCE STA CT THORACIC SPINE W/O CONTRAST Stat RADS 07/17/19 06:42 Ordered Medications Discontinued Medications Generic Name Dose Route Start Last Admin Trade Name Freq PRN Reason Stop Dose Admin Hydromorphone HCl 1 mg 07/17/19 06:27 07/17/19 06:28 Dilaudid 1 Mg/Ml Syringe IM 07/17/19 06:28 1 mg ONCE STA Administration Vital Signs: Temp Pulse Resp BP Pulse Ox 07/17/19 06:16 98 F 83 20 132/82 94 L Discharge Plan Discharge Prescriptions: No Action donepezil 5 mg Tablet 5 mg PO BEDTIME RF: 0 clarithromycin 500 mg Tablet 500 mg PO BID RF: 0 aspirin [Aspirin Low Dose] 81 mg Tablet,Delayed Release (Dr/Ec) 81 mg PO DAILY RF: 0 alprazolam 0.25 mg Tablet 0.25 mg PO DAILY PRN (Reason: Anxiety) RF: 0 metoprolol tartrate 50 mg Tablet 50 mg PO BID RF: 0 prednisone 20 MG tablet 10 mg PO DAILYWM RF: 0 atorvastatin 40 MG tablet 40 mg PO DAILY RF: 0 clopidogrel 75 MG tablet 75 mg PO DAILY RF: 0 pantoprazole 40 MG tablet,delayed release (DR/EC) 40 mg PO DAILY RF: 0 zolpidem 10 MG tablet 10 mg PO DAILY RF: 0 ezetimibe 10 MG tablet 10 mg PO DAILY RF: 0 Symbicort 1 PUFF HFA aerosol inhaler 1 puff inhalation DIRECTED RF: 0 Spiriva Respimat 4 GM mist 4 g inhalation DIRECTED RF: 0 albuterol sulfate 1 VIAL solution for nebulization 1 vial NEB RTQ4H PRN (Reason: Wheezing) 30 Days Qty: 30 RF: 1 ED Provider: ANNE CASTANON
[2019-07-17] MEDS ORDERED: DUONEB NEB STA (07:04)
[2019-07-17] MEDS ORDERED: DILAUDID 0.5 MG/0.5 ML SYRINGE IVP STA (07:50)
--- NOTE | 2019-07-17 08:01 | CT ---
EXAM: CT cervical spine. HISTORY: Fall. TECHNIQUE: CT cervical spine without contrast. Detailed axial sections. Coronal and sagittal re-fo rmations. COMPARISON: None FINDINGS: Bones are demineralized. Apparent previous fusion of the interspace at C5/C6. No acute fracture is seen. Facet joints are covered. Lateral masses of C1 and C2 are normally aligned and the odontoid process is intact. There is diffuse degenerative disc and facet disease which is relatively severe at C6/C7. There is central posterior disc bulging at C3/C4 which encroaches upon the cervical cord, age indeterminate. There is no paraspinal hematoma. Incidental findings include apical lung scarrin g and atherosclerotic disease. IMPRESSION: 1. No acute fracture or subluxation. 2. Degenerative disc disease most apparent at C3/C4 where there is central disc bulging which appear s to encroach upon the cervical cord. Correlate clinically. Consider MRI.
[2019-07-17] MEDS ORDERED: DILAUDID 0.5 MG/0.5 ML SYRINGE IM STA (08:10)
--- NOTE | 2019-07-17 08:12 | CT ---
EXAM: CT LUMBAR SPINE HISTORY: Fall TECHNIQUE: CT lumbar spine without contrast. 3-mm axial sections. Coronal and sagittal reformation s. COMPARISON: None FINDINGS: Bones are demineralized. No acute fracture is seen. Vertebral body heights are maintained. No noti ceable spondylolisthesis. Posterior element hardware at the lumbosacral junction. No significant sc oliosis. Sacroiliac joints are intact. There is diffuse moderate to severe degenerative disc diseas e. This is most apparent at L3/L4, moderate. Also at L4/L5, severe secondary to facet arthropathy, ligamentum flavum hypertrophy and posterior disc bulging. There is no paraspinal hematoma or fluid c ollection. Incidental findings include vascular calcifications. IMPRESSION: 1. No acute fracture or subluxation. 2. Degenerative disc and facet disease, severe at L4/L5.
--- NOTE | 2019-07-17 08:19 | CT ---
EXAM: CT thoracic spine without contrast HISTORY: Back pain with a recent fall, history of T6 fracture COMPARISON: CT chest 06/23/2019 TECHNIQUE: CT thoracic spine performed without intravenous contrast. Coronal and sagittal reformatt ed images obtained. FINDINGS: Bones appear demineralized. There is a compression fracture of T6 with with moderate loss of height that is new from 06/23/2019. 2.5 mm retropulsion superior endplate causing mild central c anal narrowing. Remainder of vertebral bodies normal in height. Mild multilevel chronic discogenic d egenerative disease with intervertebral disc space narrowing and marginal osteophyte formation. Plea se refer to separate report CT chest regarding findings in the chest. IMPRESSION: 1. Compression fracture of T6 with with moderate loss of height that is new from 06/23/2019. 2.5 mm retropulsion superior endplate causing mild central canal narrowing 2. Chronic discogenic degenerative disease.
[2019-07-17] MEDS ORDERED: ATIVAN PO STA (08:32)
--- NOTE | 2019-07-17 08:38 | CT ---
EXAM: CT chest without contrast HISTORY: Right scapular pain, rib pain COMPARISON: 06/23/2019 TECHNIQUE: CT chest performed without intravenous contrast. Coronal and sagittal reformatted images obtained. FINDINGS: Thoracic inlet unremarkable. Heart normal in size. Coronary calcifications. No perica rdial effusion. Aorta normal in caliber. Moderate to severe atherosclerosis. Evaluation for lympha denopathy limited without contrast. No lymphadenopathy identified in the chest. Patient status post cholecystectomy. 2 mm right renal calculus. No hydronephrosis. Kidneys are incompletely imaged. Small parapelvic cysts suggested. Compression fracture of T6 with moderate loss of height that is ne w from 06/23/2019 with 2.5 mm retropulsion causing mild central canal narrowing. Minimal soft tissue thickening of the anterior aspect of the vertebral body may represent minimal swelling or minimal he matoma. Debris in the trachea and right and left main bronchi. No pleural effusion or pneumothorax. New ground-glass and nodular infiltrates in the right greater than left lower lobes with largest ar ea of discrete nodularity measuring up to 7 mm on image 30. Mild associated right basilar consolidat ion. Right-sided largest area of discrete moderate emphysema. nodularity measuring 7 mm image 30. IMPRESSION: 1. Compression fracture T6 as described. 2. New ground-glass and nodular infiltrates in the right greater than left lower lobes with largest area of discrete nodularity measuring up to 7 mm. Mild associated right basilar consolidation. Find ings likely represent pneumonia and may be on the basis of aspiration given debris in the trachea and left main bronchi. Recommend CT chest follow-up in 3 months given nodularity. 3. Emphysema. 4. Coronary calcifications. Atherosclerosis. 5.
[2019-07-17] MEDS ORDERED: SODIUM CHLORIDE 500 ML IV STA (08:58)
--- NOTE | 2019-07-17 09:07 | ED.PDOC ---
General ED Provider: Dr. AURELIANO ACEVEDO MD Chief Complaint: Back Pain Stated Complaint: back pain Time Seen by Physician: 06:56 Mode of Arrival: Wheelchair Information Source: Patient and Family Primary Care Provider: RACIEL JEFFREY Nursing and Triage Documentation Reviewed and Agree: Yes Does patient meet sepsis criteria?: No System Inflammatory Response Syndrome: Not Applicable Sepsis Protocol: For patient's 13 years and over: Temp is 96.8 and below OR 101 and greater Pulse >90 BPM Resp >20/minute Acutely Altered Mental Status Are patient's symptoms suggestive of a new infection, such as: -Pneumonia -Skin, Soft Tissue -Endocarditis -UTI -Bone, Joint Infection -Implantable Device -Acute Abdominal Infection -Wound Infection -Meningitis -Blood Stream Catheter Infection -Unknown Musculoskeletal Complaint Exam Back Pain Complaint/Exam Mechanism of Injury: Reports Trauma Onset/Duration: hx of T6 compression fx from previous, but then fell again 2 days ago Symptoms Are: Still present Timing: Constant Initial Severity: Moderate Current Severity: Moderate Location: Reports Discrete Character: Reports Sharp Aggravating: Reports Movements Alleviating: Reports Rest Related History: Reports Previous back injury Review of Systems Review Of Systems Constitutional: Denies Fever Eyes: Reports No symptoms Ears, Nose, Mouth, Throat: Reports No symptoms Respiratory: Reports Cough and Wheezing Cardiac: Denies Chest pain GI: Reports No symptoms Musculoskeletal: Reports Back pain (famililar mid back pain) Skin: Reports No symptoms Neurological: Reports No symptoms All Other Systems: Other [facility] Medical History (Updated 07/17/19 @ 10:48 by SHARIFA LOZOYA, RN) 3-vessel coronary artery disease (Acute) Back fracture (Acute) COPD (chronic obstructive pulmonary disease) (Acute) Hiatal hernia (Acute) Myocardial infarct (Acute) Pneumonia (Acute) Family History (Updated 07/17/19 @ 10:48 by SHARIFA LOZOYA, RN) Mother Stomach cancer Father Coronary artery arteriosclerosis Social History (Updated 07/17/19 @ 10:49 by SHARIFA LOZOYA, RN) Smoking and tobacco status: Former smoker Substance use type: does not use History of recent travel: No Physical Exam Physical Exam Appearance: Reports Well-appearing Ill-appearing: None Pain Distress: Moderate Eyes: Reports EOMI ENT: Reports Nose normal and Oropharynx normal Neck: Supple Respiratory: Reports Airway patent and Wheezes Cardiovascular: Reports RRR GI/: Reports Soft and Nontender Musculoskeletal: Reports ROM intact (tender paraspinal back) Skin: Reports Warm and Dry Neurological: Reports Sensation intact and Motor intact Psychiatric: Reports Affect appropriate Re-Evaluation Re-Evaluation Time of Re-Evaluation: 09:05 Status: Improved Vital Signs Stable: Yes Pain Level: mild Appearance: NAD Lungs: Other (wheezing improved) Skin: Warm and Dry Neuro: Alert and Oriented X3 CV: RRR Additional Comments: pt care assumed from Dr Alvarez at 7am, pt d/w Dr Betancourt for admission for pneumonia Re-Evaluation Time of Re-Evaluation: 09:07 Critical Care Note Critical Care Note Total Time (mins): 0 Course Course Hematology/Chemistry: 07/19/19 05:35 07/19/19 05:35 Orders, Labs, Meds: Orders Category Date Time Status ABG DRAW REQUEST Stat CARDIO 07/17/19 08:53 Completed NEBULIZER TREATMENT Stat CARDIO 07/17/19 07:05 Completed ABG Stat LAB 07/17/19 09:30 Completed BLOOD CULTURE Stat LAB 07/17/19 09:30 Results CBC W/ AUTO DIFF Stat LAB 07/17/19 09:35 Completed COMPREHENSIVE METABOLIC PANEL Stat LAB 07/17/19 09:35 Completed GRAM STAIN Stat LAB 07/17/19 16:30 Completed LACTIC ACID Stat LAB 07/17/19 09:35 Completed SPUTUM CULTURE Stat LAB 07/17/19 16:30 Results URINALYSIS C & S IF INDICATED Stat LAB 07/17/19 17:00 Completed Hydromorphone HCl [Dilaudid 0.5 mg/0.5 ml Syringe] MEDS 07/17/19 08:10 Di scontinued 0.5 mg IM ONCE STA Hydromorphone HCl [Dilaudid 0.5 mg/0.5 ml Syringe] MEDS 07/17/19 07:50 Discontinued 0.5 mg IVP ONCE STA Hydromorphone HCl [Dilaudid 1 mg/ml Syringe] MEDS 07/17/19 06:27 Discontinued 1 mg IM ONCE STA Ipratropium/Albuterol Neb [Duoneb] MEDS 07/17/19 07:04 Discontinued 3 ml NEB ONCE STA Levofloxacin/D5w [Levaquin 500 mg/100 ml D5w] MEDS 07/17/19 09:00 Active 500 mg in 100 ml IV DAILY Lorazepam [Ativan] MEDS 07/17/19 08:32 Discontinued 0.5 mg PO ONCE STA Sodium Chloride 0.9% [Sodium Chloride] 500 ml MEDS 07/17/19 08:[address] CERVICAL SPINE W/O CONTRAST Stat RADS 07/17/19 07:[address] CHEST W/O CONTRAST Stat RADS 07/17/19 06:[address] LUMBAR SPINE W/O CONTRAST Stat RADS 07/17/19 07:[address] THORACIC SPINE W/O CONTRAST Stat RADS 07/17/19 06:42 Completed Medications Generic Name Dose Route Start Last Admin Trade Name Freq PRN Reason Stop Dose Admin Acetylcysteine 200 mg 07/17/19 18:00 07/19/19 04:32 Mucomyst 20% Neb NEB 200 mg RTBID NEELIMA Administration Albuterol Sulfate 2.5 mg 07/17/19 18:00 07/19/19 04:32 Albuterol 0.083% Neb NEB 2.5 mg RTBID NEELIMA Administration Alprazolam 0.25 mg 07/17/19 14:55 Xanax PO DAILY PRN Anxiety Aspirin 81 mg 07/18/19 08:00 07/18/19 08:48 Aspirin Ec PO 81 mg DAILYWM NEELIMA Administration Atorvastatin Calcium 40 mg 07/18/19 09:00 07/18/19 08:48 Lipitor PO 40 mg DAILY NEELIMA Administration Clopidogrel Bisulfate 75 mg 07/18/19 09:00 07/18/19 08:48 Plavix PO 75 mg DAILY NEELIMA Administration Ezetimibe 10 mg 07/18/19 21:00 07/18/19 20:15 Zetia PO 10 mg DAILY NEELIMA Administration Levofloxacin/Dextrose 500 mg in 100 mls @ 100 mls/hr 07/17/19 09:00 07/18/19 08:44 Levaquin 500 Mg/100 Ml D5w IV 07/20/19 08:59 100 mls/hr DAILY NEELIMA Administration CEFEPIME 2 GM/D5W 2 gm in 50 mls @ 75 mls/hr 07/17/19 19:00 07/19/19 05:16 Maxipime 2 Gm/50 Ml D5w IV 07/20/19 18:59 75 mls/hr Q8HR NEELIMA Administration Multivitamins/Minerals 10 ml/ 1,010 mls @ 83.001 mls/hr 07/17/19 17:30 07/18/19 20:14 Potassium Chloride/Dextrose/ IV 83.001 mls/hr Sod Cl .[id number] NEELIMA Administration Lidocaine 1 patch 07/17/19 21:00 07/18/19 20:15 Lidoderm Patch 5% TP Not Given BEDTIME NEELIMA Metoprolol Tartrate 25 mg 07/17/19 21:00 07/18/19 20:15 Lopressor PO 25 mg BID NEELIMA Administration Morphine Sulfate 2 mg 07/17/19 13:46 07/18/19 14:30 Morphine 2 Mg/Ml Syringe IVP 2 mg Q4H PRN Administration Pain Non-Formulary Medication 1 spray 07/18/19 09:00 07/18/19 09:15 Calcitonin ([place]) DENNIS 1 spray DAILY NEELIMA Administration Pantoprazole Sodium 40 mg 07/18/19 06:30 07/19/19 05:54 Protonix PO 40 mg QDAC NEELIMA Administration Prednisone 5 mg 07/18/19 08:00 07/18/19 08:48 Prednisone PO 5 mg DAILYWM NEELIMA Administration Tiotropium [place] 1 cap 07/18/19 09:00 07/18/19 08:49 Spiriva IH 1 cap DAILY NEELIMA Administration Zolpidem Tartrate 10 mg 07/17/19 21:00 07/18/19 20:15 Ambien PO 10 mg BEDTIME NEELIMA Administration Discontinued Medications Generic Name Dose Route Start Last Admin Trade Name Freq PRN Reason Stop Dose Admin Albuterol Sulfate mg 07/17/19 10:05 Albuterol 0.083% Neb NEB RTQ4H PRN Cough Albuterol Sulfate 2.5 mg 07/17/19 13:58 Albuterol 0.083% Neb NEB RTBID PRN Wheezing Albuterol/Ipratropium 3 ml 07/17/19 07:04 07/17/19 07:54 Duoneb NEB 07/17/19 07:05 3 ml ONCE STA Administration Atorvastatin Calcium 40 mg 07/18/19 09:00 Lipitor PO DAILY NEELIMA Furosemide 40 mg 07/17/19 13:50 07/17/19 16:25 Lasix IVP 07/17/19 13:51 40 mg ONCE STA Administration Hydromorphone HCl 1 mg 07/17/19 06:27 07/17/19 06:28 Dilaudid 1 Mg/Ml Syringe IM 07/17/19 06:28 1 mg ONCE STA Administration Hydromorphone HCl 0.5 mg 07/17/19 07:50 07/17/19 08:13 Dilaudid 0.5 Mg/0.5 Ml Syringe IVP 07/17/19 07:51 Not Given ONCE STA Hydromorphone HCl 0.5 mg 07/17/19 08:10 07/17/19 08:12 Dilaudid 0.5 Mg/0.5 Ml Syringe IM 07/17/19 08:11 0.5 mg ONCE STA Administration Sodium Chloride 500 mls @ 500 mls/hr 07/17/19 08:58 07/17/19 09:55 Sodium Chloride IV 07/17/19 09:57 500 mls/hr BOLUS STA Administration Lorazepam 0.5 mg 07/17/19 08:32 07/17/19 08:40 Ativan PO 07/17/19 08:33 0.5 mg ONCE STA Administration Morphine Sulfate 1 mg 07/17/19 17:23 Morphine 2 Mg/Ml Syringe IVP Q4H PRN Pain Morphine Sulfate 1 mg 07/17/19 17:25 07/17/19 17:42 Morphine 2 Mg/Ml Syringe IVP 07/17/19 17:26 1 mg ONCE ONE Administration Prednisone 10 mg 07/18/19 08:00 Prednisone PO DAILYWM [facility] Vital Signs: Temp Pulse Resp BP Pulse Ox 07/17/19 06:16 98 F 83 20 132/82 94 L Discharge Plan Discharge Patient Disposition: ADMITTED INPATIENT Discharge Problem: Pneumonia Qualifiers: Pneumonia type: due to unspecified organism Laterality: bilateral Lung location: unspecified part of lung Qualified Code(s): J18.9 - Pneumonia, unspecified organism ED Provider: AURELIANO ACEVEDO Condition: Stable Discharge Date/Time: 07/17/19 10:35
[2019-07-17] MEDS ORDERED: ALBUTEROL 0.083% NEB NEB PRN ×3 (09:49→13:58)
[2019-07-17] MEDS: LEVAQUIN 500 MG/100 ML D5W 500 MG/100 ML BAG IV SCH (09:55)
[2019-07-17] MEDS ORDERED: SODIUM CHLORIDE 1,000 ML IV SCH (10:00)
[2019-07-17 11:01] VITALS: BMI 25.5
[2019-07-17] MEDS ORDERED: LASIX IVP STA (13:50)
[2019-07-17] MEDS ORDERED: XANAX PO PRN (14:55)
--- NOTE | 2019-07-17 16:37 | CT ---
EXAM: CT abdomen pelvis without contrast HISTORY: Distended abdomen COMPARISON: None TECHNIQUE: CT abdomen pelvis performed without intravenous contrast. Coronal and sagittal reformatt ed images obtained. FINDINGS: Emphysematous change lung bases. Right basilar nodular infiltrate and consolidation is in completely imaged. No free air. No acute abnormalities of the bones. Degenerative change in the sp ine. Surgical hardware in the sacrum. Evaluation organ parenchyma limited without contrast. Liver unremarkable. Patient status post cholecystectomy. Pancreas unremarkable. Spleen unremarkable. Ad renals unremarkable. 2 mm nonobstructing right renal calculus. Punctate left renal calculus. Left renal parapelvic cysts. No hydronephrosis. Nonspecific bilateral perinephric stranding. No calculi visualized in the normal course of the ureters. Bladder unremarkable. Surgical changes anterior pe lvic wall. Prostate normal in size. Small bilateral fat containing inguinal hernias. Aorta normal in caliber. Sense atherosclerosis. Bilateral common iliac stents. No lymphadenopathy or ascites. Stomach unremarkable. No dilated loops small bowel. Appendix not visualized. Colonic diverticulosi s. Mild fecal retention in the colon. IMPRESSION: 1. No bowel or urinary obstruction. 2. Colonic diverticulosis 3. Mild fecal retention in the colon. 4. Bilateral nephrolithiasis. No hydronephrosis. 5. Extensive atherosclerosis. Iliac stents. 6. Nonspecific bilateral perinephric stranding may reflect senescent change. There are six right ba silar nodular infiltrate and consolidation is incompletely imaged and likely representing pneumonia. Please refer to CT chest same day
[2019-07-17] MEDS: MORPHINE 2 MG/ML SYRINGE IVP PRN ×2 (16:56→21:43)
[2019-07-17] MEDS ORDERED: MORPHINE 2 MG/ML SYRINGE IVP PRN (17:23)
[2019-07-17] MEDS ORDERED: MORPHINE 2 MG/ML SYRINGE IVP ONE (17:25)
[2019-07-17] MEDS ORDERED: INFUVITE ADULT IV ONE (17:36)
[2019-07-17] MEDS: INFUVITE ADULT 10 ML in D5%-1/2NS-KCL 20 MEQ/L IV SOL 1,000 ML IV SCH (17:50)
[2019-07-17] MEDS: MUCOMYST 20% NEB NEB SCH (18:35)
[2019-07-17] MEDS: ALBUTEROL 0.083% NEB NEB SCH (18:36)
[2019-07-17] MEDS: MAXIPIME 2 GM/50 ML D5W 2 GM/50 ML BAG IV SCH ×2 (19:50→22:34)
[2019-07-17] MEDS ORDERED: LOPRESSOR PO SCH (21:00)
[2019-07-17] MEDS ORDERED: NON-FORMULARY MEDICATION (Tiotropium Bromide [Spiriva Respimat] 4 GM) IH SCH (21:00)
[2019-07-17] MEDS: LIDODERM PATCH 5% TP SCH (21:26)
[2019-07-17] MEDS: AMBIEN PO SCH (21:28)
[2019-07-17] MEDS: LOPRESSOR PO SCH (21:28)
[2019-07-18] MEDS ORDERED: INFUVITE ADULT IV ONE ×2 (04:34→19:54)
[2019-07-18] MEDS: MUCOMYST 20% NEB NEB SCH ×2 (04:36→16:20)
[2019-07-18] MEDS: ALBUTEROL 0.083% NEB NEB SCH ×2 (04:36→16:20)
[2019-07-18] MEDS: MAXIPIME 2 GM/50 ML D5W 2 GM/50 ML BAG IV SCH ×3 (04:39→20:15)
[2019-07-18] MEDS: INFUVITE ADULT 10 ML in D5%-1/2NS-KCL 20 MEQ/L IV SOL 1,000 ML IV SCH ×3 (04:39→20:14)
[2019-07-18] MEDS: MORPHINE 2 MG/ML SYRINGE IVP PRN ×3 (04:40→14:30)
[2019-07-18] MEDS: PROTONIX PO SCH (05:42)
[2019-07-18] MEDS ORDERED: PREDNISONE PO SCH ×3 (08:00)
--- NOTE | 2019-07-18 08:39 | ECHO2D ---
Date of Exam: 07/18/2019 Ordering Physician: DR. TRINH Room #: 117 Reason for Echo: CORONARY ARTERY DISEASE, S/P STENT PLACEMENT, COPD M-Mode Normal Adult Results LV Dimensions Normal Adult Results AoV Opening excursions >1.6 >1.6 LVEDD-base- 3.5-5.8 4.6 Ao root dimensions 2.0-3.7 3.2 LVESD-base- 3.1-4.6 L. Atrium dimensions 1.9-3.8 3.0 Post. Wall thickness 0.8-1.1 1.1 IV septum (thickness) 0.7-1.2 1.1 Post. Wall excursion 0.72-1.3 NORMAL Septal motion NORMAL Systolic motion R. Ventricular cavity 1.5-2.0 3.0 LVEF 60% 50-55% Paradoxical septal wall motion NORMAL 2-D : 2-D M Mode Echocardiogram was performed using apical four chamber and left parasternal long and short axis views. Mitral, tricuspid and aortic valves appear to be normal. Contractility of the left ventricle seems to be normal, so is the cavity size. Left atrial cavity size and aortic root appear to be normal. There is no pericardial effusion. There is no thrombus noted in the left ventricle or left atrial cavity. No mitral valve prolapse noted. M-MODE: MV: NORMAL AV: NORMAL TV: NORMAL PV: CHAMBER SIZE: ENLARGED RIGHT VENTRICLE CAVITY WALL MOTION: NORMAL PERICARDIUM: NORMAL INTERPRETATION: 1. ENLARGED RIGHT VENTRICLE CAVITY 2. NORMAL LEFT VENTRICULAR CONTRACTILITY 3. NORMAL VALVES 4. DIFFICULT TECHNICALLY DUE TO BODY HABITUS MTDD
[2019-07-18] MEDS: LEVAQUIN 500 MG/100 ML D5W 500 MG/100 ML BAG IV SCH (08:44)
[2019-07-18] MEDS: ASPIRIN EC PO SCH (08:48)
[2019-07-18] MEDS: PLAVIX PO SCH (08:48)
[2019-07-18] MEDS: PREDNISONE PO SCH (08:48)
[2019-07-18] MEDS: LIPITOR PO SCH (08:48)
[2019-07-18] MEDS: LOPRESSOR PO SCH ×2 (08:48→20:15)
[2019-07-18] MEDS: SPIRIVA IH SCH (08:49)
[2019-07-18] MEDS ORDERED: LEVAQUIN 500 MG/100 ML D5W 500 MG/100 ML BAG IV SCH (09:00)
[2019-07-18] MEDS ORDERED: LIPITOR PO SCH (09:00)
[2019-07-18] MEDS: CALCITONIN NAS SCH (09:15)
--- NOTE | 2019-07-18 13:48 | RS.PTINEVL ---
Subjective - Patient information Date of Evaluation: 07/18/19 Date of Arrival on Unit: 07/17/19 Admitted From:: Home Diagnosis: pneumonia, fall with T6 compression fx Usual Living Arrangement: With Spouse Home Environment: House, Stairs (few), Rail Medical History: Hypertension, COPD, Arthritis Medical History Comments:: CAD, GERD, PAD, [place], DDD LATEX ALLERGY?: No Medications: see chart Subjective Information/ Patient Comments:: pt states that he is not sure if he can walk today. States that he is hurting and SOA but is willing to try. - Level of function Prior to this admission, the patient could do the following:: Independent Selfcare, Independent Ambulation, Drive Abilities prior to this admission: prior to fall a month ago pt was independent with amb, driving. Since fall pt has had significant pain. Current Level of Function: Partially Dependent Current Equipment Used at Home: O2, nebulizer, cane, TLSO brace Pain Assessement - Location mid and low back Description: Sharp, Aching Intensity: 4 Pain Behavior: Facial Grimacing Pain Aggravating Factors: Changing Position, Exercise/Activity, Standing, Walking Pain Alleviating Factors: Medication Interventions - Objective Patient Orientation: Person, Place, Time, Situation Current Interventions: IV's, Oxygen, Telemetry Observation: pt seen lying supine in bed. Range of Motion - ROM Right Upper Extremity AROM: WFL's Left Upper Extremity AROM: WFL's Right Lower Extremity AROM: WFL's Left Lower Extremity AROM: WFL's Muscle Strength - Muscle Strength Right Upper Extremity Strength: Mild Weakness (grossly 4-/5) Left Upper Extremity Strength: Mild Weakness (grossly 4-/5) Right Lower Extremity Strength: Mild Weakness (hip flex 3+/5, knee flex/ext 4- /5, ankle DF/PF 4-/5) Left Lower Extremity Strength: Mild Weakness (hip flex 3+/5, knee flex/ext 4-/5, ankle DF/PF 4-/5) Sensation - Sensation Right Upper Extremity Sensation: Impaired Left Upper Extremity Sensation: Impaired Right Lower Extremity Sensation: Impaired Left Lower Extremity Sensation: Impaired Comments: pt reports n/t BUE and B feet Palpation Palpation Findings: Tenderness, Muscle Guarding Comments:: pt with tenderness as well as muscle guarding in area of spine. Balance - Sitting Balance and Reactions Static Sitting Balance: Fair Dynamic Sitting Balance: Fair Sitting Equilibrium Reactions: Delayed Left, Delayed Right Sitting Protective Reactions: Delayed Left, Delayed Right - Standing Balance and Reactions Static Standing Balance: Poor Dynamic Standing Balance: Poor Standing Equilibrium Reactions: Delayed Left, Delayed Right Standing Protective Reactions: Delayed Left, Delayed Right Functional Mobility - Bed Mobility Rolling R/L: Mod Assist Scooting: Mod Assist, 2 person assist Supine to Sit: Mod Assist, 1 person assist Sit to Supine: Mod Assist, 1 person assist - Transfers Sit to Stand: Min Assist, 1 person assist Stand to Sit: Min Assist, 1 person assist - Safety Awareness Safety Awareness: Fair LUISA INDEX SCORE: n/a Ambulation - Ambulation Assistive Device Used: Rolling Walker Orthotic/Prosthetic Device: Yes (TLSO brace) Distance: 110ft Assistance needed with Ambulation: Min Assist, 1 person assist, 2 person assist Gait Deviations: Forward posture, Short stride Ambulation Comments: pt amb with decreased step length, flexed posture, pt required 1 standing rest period. pt amb without O2 with pulse ox 93%. Factors Affecting Ambulation: Decreased Balance, Breathing/O2 Saturation, Pain, Weakness, Decreased Safety, Cognitive Status, Limited Endurance Treatment time - Time with patient Length of Evaluation: 21 Total treatment time: 25 Patient Education - Education Patient Education: Activity Modification, Education of Plan of Care Teaching Recipient: Patient Teaching Methods: Discussion, Demonstration Comments: discussion regarding POC and importance of calling nursing for help to go to bathroom due to risk of falls. Feel pt is at high risk of falls. Assessment - Assessment Problem List:: Decreased level of function, Requires training/education, Decreased safety/Risk of falls, Weakness, Pain limits previous level of function Rehab Potential: Good Further Therapy Indicated?: Yes Candidate for Swing Bed for Therapy Services?: Feel pt would be a good candidate for swing bed to continue therapy. Evaluation Complexity: HISTORY: Medium, EXAM OF BODY SYSTEMS: Medium, CLINICAL PRESENTATION: Medium, CLINICAL DECISION MAKING: Medium Patient's Goal(s): decrease pain and be able to walk and go home. Short Term Goals GOAL #1: pt demonstrate rolling with CGA Goal to be met by: 07/22/19 GOAL #2: Sup to/from sidelying to/from sit with min x 1 Goal to be met by: 07/22/19 GOAL #3: sit to/from stand CGA Goal to be met by: 07/22/19 GOAL #4: pt amb with rwx 120ft with TLSO brace with CGAx 1 Goal to be met by: 07/22/19 Generation Engineer Goals GOAL #1: pt transfer sup to/from sidelying to/from sit to/from stand independently Goal to be met by: 07/26/19 GOAL #2: pt amb with AAD with TLSO brace with no LOB functional distances independen Goal to be met by: 07/26/19 GOAL #3: Improve dyn stand balance fair+ Goal to be met by: 07/26/19 Plan Plan of Care: Therapeutic EX, Therapeutic Activity Other:: gait training Frequency of Treatment: 1-2 X day, as tolerated Duration of Treatment: 1 Week Anticipated Discharge Destination: Home Treatment Diagnosis (ICD 10 Codes): back pain M 54.6. balance impaired R26.81. difficulty walking R 26.2 Has the Physician been added for Co-signature?: Yes
[2019-07-18] MEDS: AMBIEN PO SCH (20:15)
[2019-07-18] MEDS: ZETIA PO SCH (20:15)
[2019-07-18] MEDS: LIDODERM PATCH 5% TP SCH (20:15)
[2019-07-19] MEDS: MUCOMYST 20% NEB NEB SCH ×2 (04:32→16:56)
[2019-07-19] MEDS: ALBUTEROL 0.083% NEB NEB SCH ×2 (04:32→16:55)
[2019-07-19] MEDS: MAXIPIME 2 GM/50 ML D5W 2 GM/50 ML BAG IV SCH ×3 (05:16→20:13)
[2019-07-19] MEDS: PROTONIX PO SCH (05:54)
[2019-07-19] MEDS: CALCITONIN NAS SCH (09:15)
[2019-07-19] MEDS: LEVAQUIN 500 MG/100 ML D5W 500 MG/100 ML BAG IV SCH (09:15)
[2019-07-19] MEDS: SPIRIVA IH SCH (09:15)
[2019-07-19] MEDS: ASPIRIN EC PO SCH (09:15)
[2019-07-19] MEDS: PLAVIX PO SCH (09:16)
[2019-07-19] MEDS: LOPRESSOR PO SCH ×2 (09:16→20:13)
[2019-07-19] MEDS: ZETIA PO SCH (09:16)
[2019-07-19] MEDS: PREDNISONE PO SCH (09:16)
[2019-07-19] MEDS: LIPITOR PO SCH (09:16)
[2019-07-19] MEDS ORDERED: INFUVITE ADULT IV ONE (10:16)
[2019-07-19] MEDS: INFUVITE ADULT 10 ML in D5%-1/2NS-KCL 20 MEQ/L IV SOL 1,000 ML IV SCH (10:23)
[2019-07-19] MEDS: MORPHINE 2 MG/ML SYRINGE IVP PRN ×2 (10:23→22:53)
--- NOTE | 2019-07-19 11:44 | CONS ---
DATE OF CONSULTATION: 07/17/19 REASON FOR CONSULTATION: Shortness of breath, weakness, T6 back pain (thoracic), audible congestion, SOA with exertion. HISTORY OF PRESENT ILLNESS: This 78-year-old male was hospitalized through the doctor's office with complaint of having cough, congestion and shortness of breath. He complains of having terrible back pain. He has had a fractured back. He cannot get pain relief. He has leg pain and abdominal swelling. The patient has a history of coronary artery disease with multiple stents, nearly 10 years ago, followed by Dr. Steven. The patient has chronic lung disease for which he has been on steroids by Dr. Denis. REVIEW OF SYSTEMS: CONSTITUTIONAL: No fever. Positive for fatigue. HEENT: No sinus drainage. CVS: No angina symptoms. He has abdominal swelling with shortness of breath with exertion. He has audible rhonchi and crackles. RESPIRATORY: Cough with yellow thick sputum. No hemoptysis. GASTROINTESTINAL: No melena. No weight loss. Last bowel movement 07/17/19. GENITOURINARY: No dysuria. No frequency. DIRECTOR QUALITY SYSTEMS: No black out, no dizziness, no headache. MUSCULOSKELETAL: Back pain. SKIN: Warm and dry with bruising of the arms. PSYCHIATRIC: Not anxious. No depression. No suicidal thoughts. SOCIAL HISTORY: Smoking history: Yes. No alcohol use. . MEDICATIONS: Xanax Albuterol neb Atorvastatin Aspirin Ezetimibe Donepezil Clopidogrel Prednisone Pantoprazole Spiriva MDI Zolpidem Metoprolol Tartrate PAST MEDICAL/SURGICAL HISTORY: High lipids [place] COPD GERD Anxiety CAD Hypertension Emphysema of lung URI Three vessel Former smoker PVD Diverticulosis Back surgery Cardiac stents Vascular surgery Hernia Gallbladder Bilateral iliac stents PHYSICAL EXAMINATION: GENERAL: The patient is in no distress, awake, alert and oriented times three. VITAL SIGNS: Pulse 106, BP 111/77, temperature 98.6, 02 sat 100% with neb, respiratory rate 18, Weight 158 lbs, BMI 24.0. HEENT: Head normocephalic, atraumatic. Eyes: Extraocular muscles are intact. Pupils are equal, round and reactive to light and accommodation. Ears: No lesions. Nose appeared normal. Throat: No exudate or erythema. NECK: Supple. No JVD, no carotid bruit. No lymphadenopathy or thyromegaly. LUNGS: Decreased lung sounds. Good air entry. Clear to auscultation. Percussion note normal. Chest symmetrical. HEART: S1, S2, no S3. No murmurs. No cyanosis or clubbing. No ascites. Pulses: Dorsalis pedis and posterior tibial pulses feeble but palpable dorsalis pedis bilaterally. ABDOMEN: Large, protuberant. Possibility of ascites. Soft. Nontender. Bowel sounds active. No CVA tenderness. No mass felt. EXTREMITIES: Trace edema. Full range of motion of all extremities, equal. NEUROLOGIC: No focal deficit. Cranial nerves II through XII are grossly intact. No headache, no double vision or headache. SKIN: Not dry. Intact. Turgor - normal. LYMPHATIC: No palpable lymph nodes/no lymphedema. MUSCULOSKELETAL: Normal joints with no swelling. Muscle tone is normal. EKG sinus rhythm, no acute changes. Telemetry sinus rhythm, no acute changes. Cardiac markers negative. Chest CT - ground glass and nodular infiltrate in right greater than left lower lobes. Emphysema. Atherosclerosis. Thoracic spine CT T6 compression fracture. Room air ABGs 94% saturation, p02 68, pH 7.448, pc02 40.8, Total c02 29. ProBNP 169,000, TSH 1.470. WBC 9.68, hemoglobin 13.2, platelets 221, hematocrit 39.5. Sodium 131.5, chloride 96.4, BUN 16.3, glucose 141, K+ 4.20, c02 26.3, creatinine 0.73. ASSESSMENT: 1. Back pain, severe DJD spine, on steroids. 2. Acute bronchitis/pneumonitis. 3. Severe COPD, abnormal CT scan of chest today. 4. Coronary artery disease with stent (followed by Dr. Steven, Drupal Programmer). 5. Abdominal obesity. 6. Generalized atherosclerosis. 7. Chronic lung disease (followed by Dr. Mckeon, Pulmonary M.D.) PLAN/RECOMMENDATION: 1. Give IV Lasix just in case. 2. The patient has borderline LVF. 3. Agree with management with continuation of steroids, nebs, antibiotics. 4. No symptoms of CAD or CHF. 5. Agree with present management with antibiotics and nebs. 6. Telemetry. 7. BNP, TSH, resting echo, evaluate LV function. Thank you for the referral, will follow. [facility]
[2019-07-19] MEDS ORDERED: MORPHINE 2 MG/ML SYRINGE IVP STA (12:41)
--- NOTE | 2019-07-19 13:38 | RS.OTINEVL ---
Subjective - Patient information Date of Evaluation: 07/19/19 Date of Arrival on Unit: 07/17/19 Admitted From:: Home Diagnosis: Intractable back pain, pneumonia PRECAUTIONS: Wear TLSO when OOB. Usual Living Arrangement: With Spouse Living Arrangement Comments: family Home Environment: House, Stairs (few), Rail Medical History: Hypertension, COPD, Arthritis Medical History Comments:: CAD, GERD, PAD, [place], DDD LATEX ALLERGY?: No Surgical History Comments:: Cervical spine surgery ~10 years ago, lumbar surgery over 20 years ago, angioplasty/3 stents, Abdominal Aortic aneurysm, Hernia repair 1999 Medications: see chart Subjective Information/ Patient Comments:: "I am on O2 when I sleep." - Level of function Prior to this admission, the patient could do the following:: Independent Selfcare, Independent Ambulation, Drive Abilities prior to this admission: Pt was independent with self cares, walking, and bathing. Current Level of Function: Partially Dependent Current Equipment Used at Home: O2, nebulizer, cane, TLSO brace Pain Assessment - Pain Pain Score: 7 Side: bilateral Pain Location Body Site: Back Pain Aggravating Factors: ADL's, Sitting, Walking Pain Alleviating Factors: Ice, Medication, Lying Supine Interventions - Objective Patient Orientation: Person, Place, Time, Situation Current Interventions: IV's, Telemetry Observation: Pt walks CGA with TLSO brace on. Pt is minimal assist to get her LE in the bed. Pt is SOA and coughs when walking. Interventions - ROM Right Upper Extremity AROM: WFL's Left Upper Extremity AROM: WFL's - Strength Right Upper Extremity Strength: Mild Weakness Left Upper Extremity Strength: Mild Weakness - Sensation Right Upper Extremity Sensation: Intact/Normal Left Upper Extremity Sensation: Intact/Normal Balance - Sitting Balance Static Sitting Balance: Fair Dynamic Sitting Balance: Fair - Standing Balance Static Standing Balance: Fair Dynamic Standing Balance: Fair ADL Skills - Self Feeding Self Feeding: Independent - Grooming Grooming: CGA - Bathing Bathing UE: Independent Bathing LE: CGA - Dressing Dressing UE: Independent Dressing LE: CGA - Toilet Management Toileting Management: Min Assist Functional Mobility - Bed Mobility Rolling R/L: Independent Supine to Sit: Min Assist Sit to Supine: Min Assist - Transfers Sit to Stand: Not Tested Stand to Sit: Not Tested LUISA INDEX SCORE: . Additional Treatment Performed - Additional units charged OT 1 to 1 Activity: 15 - Time with patient Length of Evaluation: 15 Total treatment time: 30 Activities Do you enjoy playing games?: Yes Would you be interested in leaving your room for activities?: Yes Would you enjoy group activities?: Yes Do you have difficulty with your vision?: No What types of things do you enjoy doing? Any Hobbies?: TV, socialization Patient Education Patient Education: Education of diagnosis, Education of Plan of Care Teaching Recipient: Patient, Family Teaching Methods: Teach Back Method Used, Discussion Assessment Problem List:: Decreased level of function, Requires training/education, Decreased safety/Risk of falls, Weakness, Pain limits previous level of function Rehab Potential: Good Further Therapy Indicated?: Yes Evaluation Complexity: HISTORY: Medium, EXAM OF BODY SYSTEMS: Medium, CLINICAL DECISION MAKING: Medium Patient's Goal(s): to get stronger and able to move and go home. Short Term Goals - Goals GOAL 1: Pt to verbalized and demo the AE for safety of self cares. Goal to be met by: 07/26/19 GOAL 2: Pt to be Mod-Ind. with LE dressing. Goal to be met by: 07/26/19 GOAL 3: Pt to increase dyn. std. Bal. to Fair-. Goal to be met by: 07/26/19 GOAL 4: Pt to increase activity tolerance to 15 minutes Goal to be met by: 07/26/19 Group Home Goals GOAL 1: Pt to be Mod-I with your self cares. Goal to be met by: 08/02/19 GOAL 2: Pt to increase dyn. std. Bal. to G. Goal to be met by: 08/02/19 GOAL 3: Pt to increase activity tolerance to 20 minutes Goal to be met by: 08/02/19 Plan Plan of Care: Therapeutic EX, Neuromuscular Re-Educ, Therapeutic Activity, Self- Care/Home Management Modalities: Cold Pack/Cryotherapy Frequency of Treatment: 1-2 X day, as tolerated Duration of Treatment: 2 Weeks Anticipated Discharge Destination: Home Treatment Diagnosis (ICD 10 Codes): Muscle weakness M68.81 Has the Physician been added for Co-signature?: Yes
--- NOTE | 2019-07-19 14:03 | CONS ---
DATE OF SERVICE: 07/18/19 CONSULT FOLLOWUP SUBJECTIVE: The patient was seen this morning for followup with shortness of breath. The patient's condition seems to have improved. His hydration status seems to be better. He is not in any pain or in any distress. PHYSICAL EXAMINATION: HEENT: Head normocephalic, atraumatic. Eyes: Extraocular muscles are intact. Pupils are equal, round and reactive to light and accommodation. Ears: No lesions. Nose appeared normal. Throat: No exudate or erythema. NECK: Supple. No JVD, no carotid bruit. No lymphadenopathy or thyromegaly. LUNGS: Decreased breath sounds but clear. Clear to auscultation. Percussion note normal. Chest symmetrical. HEART: S1, S2 distant. No S3. No murmur. No cyanosis or clubbing. No ascites. Pulses: Dorsalis pedis and posterior tibial pulses +1 to +2 bilaterally. ABDOMEN: Soft. Nontender. Bowel sounds active. No CVA tenderness. No mass felt. EXTREMITIES: No edema. Full range of motion of all extremities, equal. NEUROLOGIC: No focal deficit. Cranial nerves II through XII are grossly intact. No headache, no double vision or headache. SKIN: Not dry. Intact. Turgor - normal. LYMPHATIC: No palpable lymph nodes/no lymphedema. MUSCULOSKELETAL: Normal joints with no swelling. Muscle tone is normal. The patient had an echo done which shows almost normal LV contractility with LV ejection fraction 50 to 55%. Normal LV size and LA size. Valvular structures seems to be normal. Echo was technically difficult because of the patient's body habitus. I agree with the present management. The patient is strongly advised to followup with pulmonary physician and monomer recovery operator. DOMENICA
--- NOTE | 2019-07-19 14:28 | CONS ---
DATE OF SERVICE: 07/19/19 CONSULT FOLLOWUP SUBJECTIVE: 78-year-old white male seen on consultation for intractable pain in the spine and having bronchitis type of symptoms with possibility of pneumonia. The patient's condition seems to have improved. Breathing status has improved. The patient doesn't seem to be in distress. Pain seems to be under control. Cardiovascular status seems to be stable. REVIEW OF SYSTEMS: CONSTITUTIONAL: No night sweats. No fatigue, malaise, lethargy. No fever or chills. HEENT: Eyes: No visual changes. No eye pain. No eye discharge. ENT: No runny nose. No epistaxis. No sinus pain. No sore throat. No odynophagia. No ear pain. No congestion. RESPIRATORY: Mild cough. No hemoptysis. CARDIOVASCULAR: No angina symptoms. No CHF symptoms. No atypical chest pain for CAD. No palpitations. Shortness of breath on exertion as usual. No PND, no orthopnea. GASTROINTESTINAL: No abdominal pain. No nausea or vomiting. No diarrhea or constipation. No hematemesis. No hematochezia. GENITOURINARY: No urgency. No frequency. No dysuria. No hematuria. No obstructive symptoms. No discharge. No pain. No significant abnormal bleeding. MUSCULOSKELETAL: The pain as usual in the spine area. NEUROLOGICAL: No headache. No neck pain. No syncope. No seizures. No dizziness. PSYCHIATRIC: Not anxious. No depression. No suicidal thoughts. No homicidal thoughts. SKIN: No rash. No lesions. No wounds. ENDOCRINE: No unexplained weight loss. No weight gain. HEMATOLOGIC/LYMPHATIC: No anemia. No purpura. No petechiae. No prolonged or excessive bleeding. No palpable lymph nodes. PHYSICAL EXAMINATION: VITAL SIGNS: Temperature 98.5, pulse 85, respiratory rate 16, BP 147/85, pulse ox 96% with 2L. HEENT: Head normocephalic, atraumatic. Eyes: Extraocular muscles are intact. Pupils are equal, round and reactive to light and accommodation. Ears: No lesions. Nose appeared normal. Throat: No exudate or erythema. NECK: Supple. No JVD, no carotid bruit. No lymphadenopathy or thyromegaly. LUNGS: Decreased breath sounds. Acceptable air entry. Clear to auscultation. Percussion note normal. Chest symmetrical. HEART: S1, S2, no S3. No murmur. No cyanosis or clubbing. No ascites. Pulses: Dorsalis pedis and posterior tibial pulses feeble bilaterally. ABDOMEN: Protuberant. No ascites. Soft. Nontender. Bowel sounds active. No CVA tenderness. No mass felt. EXTREMITIES: Trace edema. Full range of motion of all extremities, equal. NEUROLOGIC: No focal deficit. Cranial nerves II through XII are grossly intact. No headache, no double vision or headache. SKIN: Not dry. Intact. Turgor - normal. LYMPHATIC: No palpable lymph nodes/no lymphedema. MUSCULOSKELETAL: Normal joints with no swelling. Muscle tone is normal. LABS: Hemoglobin 14, hematocrit 43, WBC 8,600, normal differential. Creatinine 0.6, BUN 8, potassium 4.2. ASSESSMENT: 1. COPD WITH BRONCHITIS WITH POSSIBILITY OF PNEUMONIA UNDER CONTROL. 2. INTRACTABLE BACK PAIN SEEMS TO BE RESPONDING TO PAIN MANAGEMENT. 3. CORONARY ARTERY DISEASE WITH HISTORY OF STENTS, SEEMS TO BE STABLE. PLAN: 1. Agree with pleasant management. 2. Continue Metoprolol, Zetia with Atorvastatin and Plavix. CONDITION: Stable. MTDD
[2019-07-19] MEDS: XANAX PO SCH (20:13)
[2019-07-19] MEDS: AMBIEN PO SCH (20:13)
[2019-07-19] MEDS: LIDODERM PATCH 5% TP SCH (20:14)
[2019-07-20] MEDS ORDERED: INFUVITE ADULT IV ONE (01:55)
[2019-07-20] MEDS: INFUVITE ADULT 10 ML in D5%-1/2NS-KCL 20 MEQ/L IV SOL 1,000 ML IV SCH ×2 (02:02→10:42)
[2019-07-20] MEDS: MUCOMYST 20% NEB NEB SCH (05:05)
[2019-07-20] MEDS: ALBUTEROL 0.083% NEB NEB SCH (05:05)
[2019-07-20 05:38] VITALS: BP 161/85; TEMP 97.5
[2019-07-20] MEDS: PROTONIX PO SCH (05:38)
[2019-07-20] MEDS: MAXIPIME 2 GM/50 ML D5W 2 GM/50 ML BAG IV SCH ×2 (05:52→12:13)
[2019-07-20] MEDS: ASPIRIN EC PO SCH (08:36)
[2019-07-20] MEDS: XANAX PO SCH (08:36)
[2019-07-20] MEDS: LIPITOR PO SCH (08:37)
[2019-07-20] MEDS: LOPRESSOR PO SCH (08:37)
[2019-07-20] MEDS: PLAVIX PO SCH (08:37)
[2019-07-20] MEDS: SPIRIVA IH SCH (08:37)
[2019-07-20] MEDS: CALCITONIN NAS SCH (08:37)
[2019-07-20] MEDS: ZETIA PO SCH (08:37)
[2019-07-20] MEDS: PREDNISONE PO SCH (08:37)
[2019-07-20] MEDS ORDERED: LIDOCAINE HCL 1% SDV ONE (09:53)
--- NOTE | 2019-07-20 10:33 | ED.PDOC ---
Procedures - IV/Art Line Insertion Location: Lt wrist Type of Line: Peripheral IV Invasive Line/IV Catheter Gauge: 24 Number of Attempts: 3 Blood Return Positive: Yes Invasive Line/IV Flushes Without Difficulty: Yes Conscious Sedation - Pre-op Assessment Weight: 156 lb Surgical History: back--cardiac stents--vascular surg--hernia--gallbadder-- - Medical History Past Medical History: High Lipids, OR, COPD, GERD, Anxiety, CAD - Physical Exam Heart Rate/Rhythm: Regular Rate
[2019-07-20] MEDS ORDERED: DECADRON 4 MG/ML SDV ONE (12:13)
[2019-07-20] MEDS: MORPHINE 2 MG/ML SYRINGE IVP PRN (12:14)
[2019-07-20] MEDS ORDERED: DECADRON 4 MG/ML SDV IM SCH (12:30)
--- NOTE | 2019-07-22 09:51 | HP ---
DATE OF SERVICE: 07/17/19 SOURCE OF HISTORY: . HISTORY OF PRESENT ILLNESS: The patient fell on the steps about the first or second week of May. The patient did not present to the emergency room since he didn't have any symptoms. The patient on 06/05/19 went to his family physician for a wellness checkup and was prescribed antibiotics plus a pain medication. He was then complaining of pain in the back. The patient during the latter part of the month of May went to Dr. Omar Steven, an hogshead inspector, who took x-rays of the back and found to have fracture. I do not have access to that record and will try to get it. The patient came to [facility] 06/23/19 because of cough and congestion. The cough seemed to be persistent and the patient had a CT of the chest showing no pneumonia and no fracture. He had arterial blood gases satisfactory, 02 saturation 97, pH 7.384, pc02 42.5, p02 94, bicarbonate 26, total c02 27, base excess 1, FI02 21. There was no mention of a fracture of the T6 during that CT. The however mentioned that there was a fracture identified by Dr. Steven the latter part of May when he saw the patient. The patient had continued pain and about 6 days prior to presentation to the Emergency Room, the patient fell again. He was sitting in the recliner and tried to stand up and fell forward against another recliner. The patient again two days prior to presentation to the Emergency Room fell in the bathroom, Monday, and presented to the Emergency Room Monday or . The patient had the following x-ray studies, chest CT, thoracic spine CT, cervical spine CT, lumbar spine CT. Chest CT showed compression fracture of T6 as well as thoracic spine CT shows compression fracture of T6 with moderate loss of height described as new from 06/23/19. There is 2.5 mm retropulsion causing mild canal stenosis or narrowing. CT chest showed new ground glass nodular infiltrates in the right greater than left lower lobes with largest area of discrete nodularity measuring up to 7 mm in size. Some associated consolidation probably representing pneumonia, emphysema and coronary calcifications. Cervical spine CT - no acute fracture or subluxation, degenerative disc disease. Lumbar spine CT - no acute fracture or subluxation, degenerative disc disease. The patient was then admitted with diagnosis of pneumonitis, right lower lobe, pain secondary to compression fracture of T6 with mild retropulsion. PAST MEDICAL HISTORY: The patient had three-vessel bypass, T6 compression fracture, COPD, hiatal hernia, history of myocardial infarction, history of pneumonia in the past. The patient had been placed on Prednisone 10 mg and since then had continued to gain weight. FAMILY HISTORY: Mother had gastric carcinoma, father had coronary artery disease. SOCIAL HISTORY: The patient is and resides with his . He had been a smoker but stopped several years ago. Denies any use of medications other than prescribed. No recent travel outside of the [facility] or the [facility]. MEDICATIONS: (HOME) Albuterol Sulfate one vial nebulization q.4hr p.r.n. Alprazolam 0.25 mg a day p.r.n. (use to take it at night) Aspirin 81 mg daily Lipitor 40 mg daily Calcitonin one spray intranasal daily Plavix 75 mg daily Donepezil 5 mg at bedtime Ezetimibe 10 mg daily Metoprolol Tartrate 5 mg twice a day Pantoprazole 40 mg daily Prednisone 10 mg daily Spiriva 4 gm per inhalation daily Zolpidem 10 mg at bedtime ALLERGIES: NKDA REVIEW OF SYSTEMS: CONSTITUTIONAL: The patient is weak, complaining of pain with movement mostly about mid thoracic radiating to both sides of the posterior chest wall and going to the anterior chest. The patient also has gurgling sounds and cough. No obvious fever or chills. HEENT: No reports of headache, nasal drainage or sore throat. CARDIOVASCULAR: Denies any chest oppression or pain except the pain when he coughs. No diaphoresis. RESPIRATORY: The patient has gurgling sound in the throat. The patient is not able to cough out the mucus because of the pain that he experiences in the back with coughing. No hemoptysis. This patient is known to have COPD severe and had been under the care of a director learning as well as a family physician in [place]. GASTROINTESTINAL: Appetite has decreased during this hospitalization but had been having a good appetite since using the Prednisone. He had gradually gained weight with the Prednisone. He has no dysphagia, no abdominal pain, no change in bowel habits. GENITOURINARY: The patient does not complain of any pain on urination or any urgency at the time of admission. INTEGUMENT: No rash or pruritus. ENDOCRINE: Negative. HEMATOLOGY: No history of prolonged bleeding or spontaneous bleeding. PSYCHIATRIC: Affect appears to be normal. The patient is cooperative and cheerful. PHYSICAL EXAMINATION: GENERAL: 78-year-old male who has gurgling sounds, tachyneic and dyspneic. VITAL SIGNS: On the floor at 10:29 a.m., 07/17/19 temperature 97.7 orally, pulse 87, blood pressure 120/76, respiratory rate 16-24. Oxygen saturation 95 on 2L of nasal cannula. The patient weighed 165 lbs on the floor, 169 lbs and 3.2 ozs in the emergency room. HEENT: Face is symmetrical and equal with no facial weakness. No redness. No significant tenderness in the frontal or maxillary sinus areas to palpation. Head normocephalic, atraumatic. Pupils equal/reactive to light. Conjunctivae clear. NECK: Supple. No lymphadenopathy or thyromegaly. CARDIOVASCULAR: Chest is symmetrical and equal with some limitation in expansion. LUNGS: Breath sounds are heard on both sides with rales on the right as well as the left base. No wheezing. HEART: Audible and regular with good tones, no murmurs. ABDOMEN: Protuberant, round but no significant tenderness. No fluid wave. No masses palpable. Bowel sounds are active. No bruit. EXTERNAL GENITALIA: Not examined. RECTAL: Not done. LOWER EXTREMITIES: Essentially symmetrical and equal with no significant edema. Pedal pulses are not palpable. UPPER EXTREMITIES: Symmetrical and equal. ASSESSMENT: 1. RIGHT LOWER LOBE PNEUMONITIS. 2. CHRONIC OBSTRUCTIVE LUNG DISEASE WITH ACUTE EXACERBATION. 3. THORACIC FRACTURE T6 WITH COMPRESSION, MILD RETROPULSION 2.5 MM. 4. HISTORY OF CORONARY ARTERY DISEASE STATUS POST BYPASS. 5. HISTORY OF CHRONIC TOBACCO USE AND ABUSE, STOPPED SEVERAL YEARS AGO. 6. HISTORY OF REPEATED FALLS. PROGNOSIS: Guarded. TIME SPENT: GREATER THAN 65 MINUTES MTDD
--- NOTE | 2019-07-22 10:43 | PN ---
DATE OF SERVICE: 07/18/19 SUBJECTIVE: The patient still has pain, still has gurgling sounds. The patient will be given a Mucomyst plus Albuterol nebulization twice a day to see if this would improve. Nasotracheal suction might be helpful. A Lidocaine anesthetic may be used transnasal to see if we will be able to remove some of the mucus that was also identified on CT. OBJECTIVE: The patient has rales in both lung patel, more on the right side, no wheezing. Heart is audible with good tones. Abdomen is still protuberant. Vital signs at 1:52 p.m. 07/18/19 showed a temperature 98.8 orally, pulse 87, blood pressure 106/65, respiratory rate 20, oxygen saturation 92 L/cannula although they indicated that room air. This patient has oxygen. I could not see the weight today. I had tried to change his diet consisting of vegetables either solid or steamed for lunch and supper with 6 ozs of any kind of meat being chicken, pork, beef, turkey or fish 6 ozs. The patient can have 1/2 cupful of fruits a day. He can drink tea, coffee and water. The patient is referred to Physical Therapy for evaluation and treatment. DOMENICA
--- NOTE | 2019-07-22 13:25 | DS ---
DATE OF SERVICE: 07/20/19 FINAL DIAGNOSES: 1. PNEUMONIA, RIGHT LOWER LOBE 2. INTRACTABLE BACK PAIN RELATED TO T6 COMPRESSION FRACTURE 3. FALL WITH T6 COMPRESSION FRACTURE 4. COPD (USES OXYGEN) DR. ANDERSEN 5. NEW DIAGNOSIS OF DIABETES MELLITUS TYPE 2 WITH A1C OF 7.68 6. MYOCARDIAL INFARCTION 7. CORONARY ARTERY DISEASE 8. DYSLIPIDEMIA 9. PERIPHERAL ARTERIAL DISEASE 10. GERD 11. HYPERTENSION 12. BILATERAL ILIAC STENTS 13. CARDIAC CATH STENT APPLICATION 14. DEGENERATIVE DISC DISEASE, L4 AND L5 15. DEGENERATIVE DISC DISEASE, C2 AND C4 16. HISTORY OF TOBACCO ABUSE (QUIT 27 YEARS AGO) ECHOCARDIOGRAM 07/18/19, LVEF 50-55%, ENLARGED RIGHT VENTRICULAR CAVITY, NORMAL VALVES DISCHARGE INSTRUCTIONS: The patient is being transferred to Transitional Care. BRIEF HISTORY OF PRESENT ILLNESS/HOSPITAL COURSE: This is a pleasant 78-year-old patient that was a previous patient of Dr. Betancourt. He is wanting to reestablish care with Dr. Betancourt. He presented to the Emergency Department with complaints of back pain. He tells me that he had a fall down some steps last month. He did have a fracture to the T6 area. He tells me he has not seen a neurosurgeon. He has been taking Lafe and Flexeril for pain but the pain did get significantly worse and has gotten significantly worse over the past several days. He does wear a brace. He says he has been borrowing this from a friend. He says the pain radiates into the right scapula into the right anterior chest wall. He did fall again a few days ago. The fall was into his recliner and he felt that this just kind of made the pain a little worse again. He did have a CT of the chest completed on admission as well as thoracic spine CT, a cervical spine CT, a lumbar spine CT and abdominal/pelvis CT. All of these testing were done on admission. The CT of the chest did show a compression fracture of T6. It did show new ground glass and nodular infiltrate in the right greater than left lower lobe with largest area of discrete nodularity measuring up to 7 mm. It did show mild associated right basilar consolidation. Findings likely representing pneumonia and maybe on the basis of aspiration given the debris in the trachea and the left main bronchi With recommendations for repeat CT of the chest in three months due to the nodularity. It also showed emphysema and coronary calcifications. Again, the CT of the thoracic did confirm the compression fracture at T6 with moderate loss of height. A 2.5 mm retropulsion superior endplate causing mild central canal narrowing. No fracture was seen in the cervical spine. No fracture was seen in the lumbar spine. His white count was normal on admission. Sodium chloride was low. Because of his significant pain and the pneumonia findings on the CT of the chest decision was made to admit the patient for pain control and treatment of the pneumonia. On 07/20 the patient was transitioned to a swing bed. ALLERGIES: NKDA MEDICATIONS: Morphine 2 mg IVP q.4h p.r.n. Potassium Chloride /D5-0.45 NACL IV 83 mls/hr Mucomyst 200 mg NEB RT b.i.d. Albuterol Sulfate 2.5 NB RT b.i.d. Lopressor 25 mg p.o. b.i.d. Ambien 10 mg p.o. bedtime Xanax 0.25 mg p.o. b.i.d. Cefepime 2 gm/D5w 2 gm in 50 mL IV q.8hr Lidocaine Patch one patch TP bedtime MVI 10 mL IV STK-Med One Prednisone 5 mg p.o. daily with meal Aspirin 81 mg p.o. daily with meal Calcitonin one spray DENNIS daily Plavix 75 mg p.o. daily Protonix 40 mg p.o. q.d a.c. Spiriva one cap IH daily Metoprolol 25 mg p.o. b.i.d. Atorvastatin 40 mg p.o. daily Zetia 10 mg p.o. daily Morphine 2 mg IM q.4h p.r.n. Xanax 0.25 mg p.o. b.i.d. p.r.n. Zolpidem 10 mg p.o. bedtime p.r.n. Donepezil 5 mg p.o. bedtime Cefdinir 300 mg p.o. q.12hr LABS/DIAGNOSTIC TESTING: As reviewed in the HPI. On admission his white count was normal. Hemoglobin, hematocrit 32.2 and hematocrit 39.5. His platelet count was normal at 221. Chemistry panel - sodium low at 131.5, chloride low at 96.4, potassium 4.20, BUN 16.3, creatinine 0.73, GFR 104. Glucose 141.2. When A1C was checked it was 7.68 consistent with diagnosis of diabetes mellitus type 2. His BNP was normal at 169. Imaging consistent with T6 fracture and degenerative changes from the thoracic, cervical and lumbar CT scans. The CT of the chest was consistent with new ground glass and nodular infiltrate in the right greater than the left lower lobe with largest area of discrete nodularity measuring up to 7 mm, mild associated right basilar consolidation. Findings likely represent pneumonia maybe on the basis of aspiration given debris in the trachea and left main bronchi. The CT of the abdomen and pelvis did not show any bowel or urinary obstruction. There was some nonspecific bilateral perinephric stranding that may reflect senescent change. There was extensive atherosclerosis in iliac stent noted on CT scan. There was bilateral nephrolithiasis and no hydronephrosis noted. PLAN: 1. The patient has been transitioned to a swing bed. 2. Continue antibiotics p.o. 3. PT/OT. Will continue to follow along with this patient closely. TIME SPENT: GREATER THAN 30 MINUTES MTDD
--- NOTE | 2019-07-22 13:32 | CONS ---
DATE OF SERVICE: 07/20/2019 CONSULT FOLLOWUP SUBJECTIVE: 78 year old white male hospitalized with back pain. This morning the patient has more back pain. He was sitting in the chair. We are going to give 2mg Morphine IV now. It hasn't been given. It has been prescribed PRN and we will repeat it in 2 hours if needed the one time. The patient's pneumonia seems to be under control. REVIEW OF SYSTEMS: CONSTITUTIONAL: No night sweats. No fatigue, malaise, lethargy. No fever or chills. HEENT: Eyes: No visual changes. No eye pain. No eye discharge. ENT: No runny nose. No epistaxis. No sinus pain. No sore throat. No odynophagia. No ear pain. No congestion. RESPIRATORY: No cough, no congestion. No hemoptysis. CARDIOVASCULAR: No angina symptoms. No CHF symptoms. No atypical chest pain for CAD. No palpitations. No shortness of breath. GASTROINTESTINAL: No abdominal pain. No nausea or vomiting. No diarrhea or constipation. No hematemesis. No hematochezia. GENITOURINARY: No urgency. No frequency. No dysuria. No hematuria. No obstructive symptoms. No discharge. No pain. No significant abnormal bleeding. MUSCULOSKELETAL: No musculoskeletal pain. No joint swelling. No arthritis. upper back pain. NEUROLOGICAL: No headache. No neck pain. No syncope. No seizures. No dizziness. PSYCHIATRIC: Not anxious. No depression. No suicidal thoughts. No homicidal thoughts. SKIN: No rash. No lesions. No wounds. ENDOCRINE: No unexplained weight loss. No weight gain. HEMATOLOGIC/LYMPHATIC: No anemia. No purpura. No petechiae. No prolonged or excessive bleeding. No palpable lymph nodes. PHYSICAL EXAMINATION: VITAL SIGNS: Temperature 97.5, pulse 86, respiratory rate 18, blood pressure 160/85 and pulse ox 98%. HEENT: Head normocephalic, atraumatic. Eyes: Extraocular muscles are intact. Pupils are equal, round and reactive to light and accommodation. Ears: No lesions. Nose appeared normal. Throat: No exudate or erythema. NECK: Supple. No JVD, no carotid bruit. No lymphadenopathy or thyromegaly. LUNGS:Decreased breath sounds but clear to auscultation. Percussion note normal. Chest symmetrical. HEART: S1, S2, no S3. No murmur. No cyanosis or clubbing. No ascites. Pulses: Dorsalis pedis and posterior tibial pulses +1 to +2 bilaterally. ABDOMEN: Soft. Nontender. Bowel sounds active. No CVA tenderness. No mass felt. EXTREMITIES: No edema. Full range of motion of all extremities, equal. NEUROLOGIC: No focal deficit. Cranial nerves II through XII are grossly intact. No headache, no double vision or headache. SKIN: Not dry. Intact. Turgor - normal. LYMPHATIC: No palpable lymph nodes/no lymphedema. MUSCULOSKELETAL: Normal joints with no swelling. Muscle tone is normal. LABS: Hgb 14, hct 43, WBC 8,600 normal differential, creatinine 0.6, BUN 8, potassium 4.2. ASSESSMENT: 1. Intractable pain 2. Pneumonia seems to be resolving 3. Coronary artery disease with multiple stents 4. Severe chronic lung disease 5. Hyperglycemia RECOMMENDATIONS: 1. Give Morphine prescribed 2. Bed rest for now 3. 1cc Decadron 4. Continue the rest of the medications The patient's cardiovascular status is stable with no evidence of CHF or coronary insufficiency. Blood pressure is borderline high we will monitor it. This patient was seen in the absence of Dr. Betancourt and also on a followup consult. The patient is going to be hospitalized on the swing bed now per Dr. Betancourt's standing order that was given yesterday. CONDITION: Stable. MTDD
--- NOTE | 2019-07-22 14:20 | CONS ---
The patient was seen on Consultation on 07/17/2019: Level 5. He was seen for the first time as a consult and after that he has been seen 07/18/2019, 07/19/2019 and 07/20/2019. He is going to be seen on 07/21/2019. DOMENICA
--- NOTE | 2019-07-23 10:41 | PN ---
DATE OF SERVICE: 07/19/2019 SUBJECTIVE: The patient is alert and feeling better and his was at the bedside. The patient wanted to go home and I did tell him that doesn't seem to me that he is ready to go home. His temperature is 97.8, pulse rate 93, blood pressure 125/80, nasal cannula 2 liters oxygen saturation 96%. I had talked to Tawnya Stephens earlier and she told him that his weight was 158 pounds however I could not find that in my chart. LUNGS: The patient's respiration is now quite. No gurgling sounds. He still has rales in both lungs patel. HEART: Audible with good tones. The patient was advised that he is going to be seen by Dr. Fischer in my absence and I told him that I will be leaving town today and Dr. Fischer will see him for his needs from here on until I return to the office on Monday. The patient and the was agreeable to that arrangement. This patient is receiving Cefepime 2 grams every 8 hours. He also was receiving Levofloxacin which I discontinued. The Prednisone had been reduced to 5mg and the patient does not have any untoward problems with the reduction of the medication. Condition is slightly improved. Looking for the x-rays that were done in [place] with regards to the fracture. The mentioned that Dr. Steven had done x-rays and did show fracture however the CT on 06/23/2019 over at [place] does not reveal any fracture of T6. Needs to reconcile those. DOMENICA
== END 2019-07-20 12:25 | disposition swing bed (61) | DRG 194 ==
LOC: ED 06:16 → MEDSURG B 09:01
PROVIDERS: ADMIT General Practice; ATTEND General Practice

== ENCOUNTER 2020-02-27 09:28 | Inpatient (IN) ==
--- NOTE | 2020-02-27 09:45 | ED.PDOC ---
General ED Provider: Dr. STEPHANIE LANG Chief Complaint: Shortness of Air Stated Complaint: Cough, congestion and SOB a few days ago Recent hospitalization at [facility]. Time Seen by Physician: 09:43 Mode of Arrival: Walk-In Information Source: Patient Exam Limitations: No limitations Primary Care Provider: NABOR POSADA Nursing and Triage Documentation Reviewed and Agree: Yes Does patient meet sepsis criteria?: No System Inflammatory Response Syndrome: Not Applicable Sepsis Protocol: For patient's 13 years and over: Temp is 96.8 and below OR 101 and greater Pulse >90 BPM Resp >20/minute Acutely Altered Mental Status Are patient's symptoms suggestive of a new infection, such as: -Pneumonia -Skin, Soft Tissue -Endocarditis -UTI -Bone, Joint Infection -Implantable Device -Acute Abdominal Infection -Wound Infection -Meningitis -Blood Stream Catheter Infection -Unknown Respiratory Complaint Exam Respiratory Complaint/Exam Onset/Duration: 2 days-increasing congestion. In on Home oxygen and gets congested Symptoms Are: Still present Timing: Intermittent Initial Severity: Moderate Current Severity: Moderate Location: Chest Character: Reports Non-productive cough Aggravating: Reports URI and Recumbent position Alleviating: Reports None Associated Signs and Symptoms: Reports Dyspnea, Wheezing and Hoarseness Related History: Reports Similar episode History of Healthcare-Acquired Pneumonia: No Related Surgical History: Reports None Pulmonary Embolism Risk Factors: None Cardiac Risk Factors: Reports None Pseudomonas Risk Factors: Reports None Tuberculosis Risk Factors: Reports None Status Asthmaticus Risk Factors: Reports None and Recent admissions (To [facility]) Home Oxygen Use: Yes Recent Stress Test: No Recent Echo/LV Function: No Current Antibiotic Use: No Respiratory Distress: Mild Inadequate Respiratory Effort: No Dysphagia Present: No Stridor Present: No JVD Present: No Accessory Muscle Use: No Retractions: Not Present Diminished Breath Sounds: No Sinus Tenderness: None Grunting Respirations: No Kussmaul Respirations: No Differential Diagnoses: COPD Exacerbation, Pneumonia, Bronchitis, Bronchospasm and Mycoplasma Quality Indicators For Pneumonia: Blood Cultures-SCU admit Non-Traumatic Chest Pain Syncope: EKG Performed Review of Systems Review Of Systems Constitutional: Reports No symptoms All Other Systems: Reviewed and Negative [facility] Medical History 3-vessel coronary artery disease Back fracture COPD (chronic obstructive pulmonary disease) Hiatal hernia History of fall Myocardial infarct Pneumonia Family History Mother Stomach cancer FATHER Coronary artery arteriosclerosis Social History Smoking and tobacco status: Former smoker Alcohol intake: former Substance use type: does not use History of recent travel: No Physical Exam Physical Exam Appearance: Reports Well-appearing, No pain distress and Well-nourished Ill-appearing: None Pain Distress: None Eyes: Reports GINI, EOMI and Conjunctiva clear ENT: Reports Ears normal, Nose normal and Oropharynx normal Neck: Supple Respiratory: Reports Airway patent, Breath sounds equal, Breath sounds diminished, Respirations nonlabored, Rhonchi and Wheezes Cardiovascular: Reports RRR, Pulses normal, No rub and No murmur GI/: Reports Soft, Nontender, No masses, Bowel sounds normal and No Organomegaly Musculoskeletal: Reports Normal strength, ROM intact, No edema and No calf tenderness Skin: Reports Warm, Dry and Normal color Neurological: Reports Sensation intact, Motor intact, Reflexes intact, Cranial nerves intact, Alert and Oriented Psychiatric: Reports Affect appropriate and Mood appropriate Interpretation Radiology Interpretation Exam Interpreted: Portable CXR Xray Comments: Chronic changes EKG Interpretation Time of EKG #1: 11:17 Rate: Normal Rhythm: Sinus Ectopy: None Guinda: NL ST Segment: Normal Interpretation: NSR Physician Notification Case Discussed Physician Notified: Dr Romero-agreed to admission Time of Notification: 15:00 Critical Care Note Critical Care Note Total Time (mins): 30 Course Course Hematology/Chemistry: 02/27/20 10:40 02/27/20 10:40 Orders, Labs, Meds: Lab Review 02/27/20 02/27/20 02/27/20 10:12 10:40 10:40 WBC 13.74 H RBC 4.40 L Hgb 13.2 L Hct 41.2 L MCV 93.6 MCH 30.0 MCHC 32.0 RDW Coeff of Miquel 14.3 Plt Count 193 Immature Gran % (Auto) 0.4 Neut % (Auto) 78.4 H Lymph % (Auto) 12.7 Grafton % (Auto) 7.6 Eos % (Auto) 0.6 Baso % (Auto) 0.3 Neut # (Auto) 10.8 H Lymph # (Auto) 1.7 Grafton # (Auto) 1.1 Eos # (Auto) 0.1 Baso # (Auto) 0.0 Immature Gran # (Auto) 0.1 Puncture Site O2 Saturation ABG pH ABG pCO2 ABG pO2 ABG HCO3 ABG Total CO2 ABG Base Excess FiO2 % Sodium 136.2 Potassium 4.25 Chloride 100.3 Carbon Dioxide 30.2 H Anion Gap 9.95 BUN 9.9 Creatinine 0.68 Estimated GFR (MDRD) 112.00 BUN/Creatinine Ratio 14.55 Glucose 110.0 H Lactic Acid Calcium 9.80 Total Bilirubin 0.56 AST 25.3 ALT 19.7 Alkaline Phosphatase 59.1 Troponin I NT-Pro-B Natriuret Pep Total Protein 6.81 Albumin 4.04 Globulin 2.77 Albumin/Globulin Ratio 1.45 Procalcitonin Urine Color Yellow Urine Clarity Clear Urine pH 5.0 Ur Specific Switzer 1.010 Urine Protein Negative Urine Glucose (UA) Negative Urine Ketones Negative Urine Blood Negative Urine Nitrite Negative Urine Bilirubin Negative Urine Urobilinogen 0.2 Ur Leukocyte Esterase Negative Influ A Molecular Assay Influ B Molecular Assay 02/27/20 02/27/20 02/27/20 10:40 10:40 10:40 WBC RBC Hgb Hct MCV MCH MCHC RDW Coeff of Miquel Plt Count Immature Gran % (Auto) Neut % (Auto) Lymph % (Auto) [place] % (Auto) Eos % (Auto) Baso % (Auto) Neut # (Auto) Lymph # (Auto) [place] # (Auto) Eos # (Auto) Baso # (Auto) Immature Gran # (Auto) Puncture Site O2 Saturation ABG pH ABG pCO2 ABG pO2 ABG HCO3 ABG Total CO2 ABG Base Excess FiO2 % Sodium Potassium Chloride Carbon Dioxide Anion Gap BUN Creatinine Estimated GFR (MDRD) BUN/Creatinine Ratio Glucose Lactic Acid Calcium Total Bilirubin AST ALT Alkaline Phosphatase Troponin I < 0.012 NT-Pro-B Natriuret Pep 149.000 Total Protein Albumin Globulin Albumin/Globulin Ratio Procalcitonin < 0.05 Urine Color Urine Clarity Urine pH Ur Specific Switzer Urine Protein Urine Glucose (UA) Urine Ketones Urine Blood Urine Nitrite Urine Bilirubin Urine Urobilinogen Ur Leukocyte Esterase Influ A Molecular Assay Influ B Molecular Assay 02/27/20 02/27/20 02/27/20 11:00 11:15 11:25 WBC RBC Hgb Hct MCV MCH MCHC RDW Coeff of Miquel Plt Count Immature Gran % (Auto) Neut % (Auto) Lymph % (Auto) [place] % (Auto) Eos % (Auto) Baso % (Auto) Neut # (Auto) Lymph # (Auto) [place] # (Auto) Eos # (Auto) Baso # (Auto) Immature Gran # (Auto) Puncture Site Rb O2 Saturation 96.0 ABG pH 7.348 L ABG pCO2 45.2 H ABG pO2 87.0 ABG HCO3 24.8 ABG Total CO2 26 ABG Base Excess -1 FiO2 % 21.0 Sodium Potassium Chloride Carbon Dioxide Anion Gap BUN Creatinine Estimated GFR (MDRD) BUN/Creatinine Ratio Glucose Lactic Acid 2.07 Calcium Total Bilirubin AST ALT Alkaline Phosphatase Troponin I NT-Pro-B Natriuret Pep Total Protein Albumin Globulin Albumin/Globulin Ratio Procalcitonin Urine Color Urine Clarity Urine pH Ur Specific Switzer Urine Protein Urine Glucose (UA) Urine Ketones Urine Blood Urine Nitrite Urine Bilirubin Urine Urobilinogen Ur Leukocyte Esterase Influ A Molecular Assay Negative by naat Influ B Molecular Assay Negative by naat 02/27/20 11:40 WBC RBC Hgb Hct MCV MCH MCHC RDW Coeff of Miquel Plt Count Immature Gran % (Auto) Neut % (Auto) Lymph % (Auto) [place] % (Auto) Eos % (Auto) Baso % (Auto) Neut # (Auto) Lymph # (Auto) [place] # (Auto) Eos # (Auto) Baso # (Auto) Immature Gran # (Auto) Puncture Site O2 Saturation ABG pH ABG pCO2 ABG pO2 ABG HCO3 ABG Total CO2 ABG Base Excess FiO2 % Sodium Potassium Chloride Carbon Dioxide Anion Gap BUN Creatinine Estimated GFR (MDRD) BUN/Creatinine Ratio Glucose Lactic Acid Calcium Total Bilirubin AST ALT Alkaline Phosphatase Troponin I NT-Pro-B Natriuret Pep Total Protein Albumin Globulin Albumin/Globulin Ratio Procalcitonin < 0.05 Urine Color Urine Clarity Urine pH Ur Specific Switzer Urine Protein Urine Glucose (UA) Urine Ketones Urine Blood Urine Nitrite Urine Bilirubin Urine Urobilinogen Ur Leukocyte Esterase Influ A Molecular Assay Influ B Molecular Assay Orders Category Date Time Status ABG DRAW REQUEST Stat CARDIO 02/27/20 10:13 Completed EKG-(ED ONLY) Stat CARDIO 02/27/20 10:13 Completed METERED DOSE INHALATION Routine CARDIO 02/27/20 10:26 Completed IV [ED IV/MEDIPORT/POWERPORT] .ONCE EMERGENCY 02/27/20 10:24 Active ABG Stat LAB 02/27/20 11:25 Completed CBC W/ AUTO DIFF Stat LAB 02/27/20 10:40 Completed CMP [COMPREHENSIVE METABOLIC PANEL] Stat LAB 02/27/20 10:40 Completed COVID19, PCR IDPH Stat LAB 02/27/20 11:15 Received FLU A & B MOLECULAR [FLU A/B MOLECULAR] Stat LAB 02/27/20 11:15 Completed LACTIC ACID Stat LAB 02/27/20 11:00 Completed PROCALCITONIN Stat LAB 02/27/20 10:40 Completed RAPID STREP SCREEN [MOLECULAR GROUP A STREP] Stat LAB 02/27/20 11:15 Completed SPUTUM CULTURE Stat LAB 02/27/20 10:14 Uncollected TROPONIN I Stat LAB 02/27/20 10:40 Completed UA [URINALYSIS C & S IF INDICATED] Stat LAB 02/27/20 10:12 Completed 0.9 % Sodium Chloride [Saline Flush] MEDS 02/27/20 10:24 Active 1 syr IVF PRN PRN Albuterol Inhaler(with Spacer) [Ventolin Hfa (Per Puff- MEDS 02/27/20 10:24 Discontinued with Spacer)] 2 puff IH ONCE STA Methylprednisolone Sod Succ/Pf [Solu-Medrol 125 mg] MEDS 02/27/20 10:25 Discontinued 125 mg IVP ONCE ONE Sodium Chloride 0.9% [Sodium Chloride] 1,000 ml MEDS 02/27/20 10:24 Discontinued IV BOLUS CHEST, 1V AP ONLY Stat RADS 02/27/20 10:13 Completed Medications Generic Name Dose Route Start Last Admin Trade Name Freq PRN Reason Stop Dose Admin Hydrocodone Bitart/Acetaminophen 1 tab 02/27/20 21:00 Taylor 10-325 PO BID NEELIMA Albuterol Sulfate 2 puff 02/27/20 18:29 Ventolin Hfa (Per Puff-With Spacer) IH Q6H PRN SHORTNESS OF AIR Alprazolam 0.25 mg 02/27/20 18:24 Xanax PO DAILY PRN Anxiety Aspirin 81 mg 02/28/20 09:00 Aspirin Ec PO DAILY [facility] Atorvastatin Calcium 40 mg 02/28/20 09:00 Lipitor PO DAILY [facility] Budesonide/Formoterol Fumarate 2 puff 02/27/20 21:00 Symbicort 160-4.5 Mcg Inhaler IH BID [facility] Clopidogrel Bisulfate 75 mg 02/28/20 09:00 Plavix PO DAILY [facility] Cyclobenzaprine HCl 10 mg 02/27/20 18:24 Flexeril PO TID PRN MUSCLE SPASMS Donepezil HCl 5 mg 02/27/20 21:00 Aricept PO BEDTIME [facility] Ezetimibe 10 mg 02/28/20 09:00 Zetia PO DAILY [facility] Furosemide 20 mg 02/27/20 18:24 Lasix Tab PO DAILY PRN LEG SWELLING Guaifenesin 1,200 mg 02/27/20 21:00 Mucinex PO BID [facility] CEFTRIAXONE/D5W 2 GM PREMIX 2 gm in 50 mls @ 75 mls/hr 02/27/20 18:30 Rocephin 2 Gm/50 Ml D5w IV 03/01/20 18:29 DAILY [facility] Potassium Chloride 20 meq/ 1,020 mls @ 83 mls/hr 02/27/20 21:00 Multivitamins/Minerals 10 ml/ IV Dextrose/Lactated Ringer's .[id number] [facility] Metformin HCl 500 mg 02/27/20 21:00 Glucophage PO BID [facility] Metoprolol Tartrate 25 mg 02/27/20 21:00 Lopressor PO BID [facility] Nitroglycerin 0.4 mg 02/27/20 16:30 Nitrostat SL Q5MIN X 3 DOSES PRN CHEST PAIN Non-Formulary Medication 2 puff 02/27/20 21:00 Tiotropium Lamy [Spiriva Respimat] IH BID [facility] Pantoprazole Sodium 40 mg 02/28/20 09:00 Protonix PO DAILY [facility] Prednisone 5 mg 02/28/20 09:00 Prednisone PO DAILY [facility] Sodium Chloride 1 syr 02/27/20 10:24 02/27/20 11:16 Saline Flush IVF 1 syr PRN PRN Administration To flush IV Trazodone HCl 50 mg 02/27/20 21:00 Desyrel PO BEDTIME [facility] Discontinued Medications Generic Name Dose Route Start Last Admin Trade Name Freq PRN Reason Stop Dose Admin Albuterol Sulfate 2 puff 02/27/20 10:24 02/27/20 11:33 Ventolin Hfa (Per Puff-With Spacer) IH 02/27/20 10:25 2 puff ONCE STA Administration Sodium Chloride 1,000 mls @ 1,000 mls/hr 02/27/20 10:24 02/27/20 11:15 Sodium Chloride IV 02/27/20 11:23 1,000 mls/hr BOLUS STA Administration Potassium Chloride 20 meq/ 1,020 mls @ 83 mls/hr 02/27/20 18:30 Multivitamins/Minerals 10 ml/ IV Dextrose/Lactated Ringer's .[id number] NEELIMA Methylprednisolone Sodium Succinate 125 mg 02/27/20 10:25 02/27/20 11:15 Solu-Medrol 125 Mg IVP 02/27/20 10:26 125 mg ONCE ONE Administration Nitroglycerin 0.4 mg 02/27/20 15:30 Nitrostat SL Q5M PRN CHEST PAIN Vital Signs: Temp Pulse Resp BP Pulse Ox 02/27/20 09:28 96.9 F L 66 16 140/52 L 99 Discharge Plan Discharge Patient Disposition: ADMITTED INPATIENT Discharge Problem: Hypertension, Acute exacerbation of chronic obstructive pulmonary disease (COPD), Carbon dioxide retention ED Provider: STEPHANIE LANG Condition: Good Discharge Date/Time: 02/27/20 15:41
[2020-02-27] MEDS ORDERED: SODIUM CHLORIDE 1,000 ML IV STA (10:24)
[2020-02-27] MEDS ORDERED: VENTOLIN HFA (PER PUFF-WITH SPACER) IH STA (10:24)
[2020-02-27] MEDS ORDERED: SOLU-MEDROL 125 MG IVP ONE (10:25)
[2020-02-27 10:49] LABS: BASOPHILS % (AUTO) 0.3 % (0.0-3.0); EOSINOPHILS # (AUTO) 0.1 K/ul (0.0-0.7); EOSINOPHILS % (AUTO) 0.6 % (0.0-7.0); HEMATOCRIT 41.2 % (42.0-52.0); HEMOGLOBIN 13.2 g/dl (14.0-18.0); IMMATURE GRANULOCYTE # (AUTO) 0.1 (0.0-1.0); IMMATURE GRANULOCYTE % (AUTO) 0.4 % (0.0-5.0); LYMPHOCYTES # (AUTO) 1.7 K/uL (0.60-3.4); LYMPHOCYTES % (AUTO) 12.7 (10.0-50.0); MEAN CORPUSCULAR VOLUME 93.6 fl (80.0-94.0); MONOCYTES # (AUTO) 1.1 K/uL (0.4-2.0); MONOCYTES % (AUTO) 7.6 (0-10); NEUTROPHILS # (AUTO) 10.8 K/ul (2.0-6.9); NEUTROPHILS % (AUTO) 78.4 % (42.2-75.2); PLATELET COUNT 193 10^3/uL (140-440); RDW COEFFICIENT OF VARIATION 14.3 % (11.6-14.8); WHITE BLOOD COUNT 13.74 K/ul (4.2-10.2)
--- NOTE | 2020-02-27 11:09 | DI ---
EXAM: Chest one view HISTORY: Cough and is COMPARISON: 01/22/2020 TECHNIQUE: Single view of the chest was performed FINDINGS: Normal heart size. Normal mediastinal contour. Stable emphysematous changes. The lungs a re clear. No pleural effusion or pneumothorax. No acute osseous abnormality. IMPRESSION: 1. No acute cardiopulmonary process. 2. Emphysema.
[2020-02-27 11:11] LABS: BILIRUBIN,URINE Negative (NEGATIVE); CLARITY,URINE Clear (CLEAR); COLOR,URINE Yellow (YELLOW); GLUCOSE, URINE (UA) Negative (NEGATIVE); KETONES,URINE Negative (NEGATIVE); LEUKOCYTE ESTERASE ,URINE Negative (NEGATIVE); NITRITE,URINE Negative (NEGATIVE); PROTEIN,URINE Negative (NEGATIVE); URINE, BLOOD Negative (NEGATIVE); UROBILINOGEN,URINE 0.2 (0.2)
[2020-02-27 11:18] LABS: ALANINE AMINOTRANSFERASE 19.7 U/L (0-50); ALBUMIN 4.04 g/dL (3.5-5.0); ALKALINE PHOSPHATASE 59.1 U/L (56-119); ASPARTATE AMINO TRANSFERASE 25.3 U/L (17-59); BILIRUBIN,TOTAL 0.56 mg/dL (0.2-1.3); BLOOD UREA NITROGEN 9.9 mg/dL (9-20); CALCIUM 9.8 mg/dL (8.4-10.2); CARBON DIOXIDE 30.2 mmol/L (22-30.0); CHLORIDE 100.3 mmol/L (98-107); CREATININE 0.68 mg/dL (0.60-1.10); POTASSIUM 4.25 mmol/L (3.5-5.1); SODIUM 136.2 mmol/L (134.5-145); TOTAL PROTEIN 6.81 g/dL (6.3-8.2)
[2020-02-27 11:43] LABS: ABG BASE EXCESS -1 (-2.0-2.0); ABG HCO3 24.8 (22.0-26.0); ABG PCO2 45.2 mmHg (35-45); ABG PH 7.348 (7.35-7.45); ABG TCO2 26 (22.0-28.0)
[2020-02-27 11:55] LABS: MOLECULAR FLU A NEGATIVE BY NAAT (NEGATIVE); MOLECULAR FLU B NEGATIVE BY NAAT (NEGATIVE)
[2020-02-27] MEDS ORDERED: NITROSTAT SL PRN ×2 (15:30→16:30)
[2020-02-27 16:33] VITALS: BMI 25.6
[2020-02-27] MEDS ORDERED: DUONEB NEB SCH (17:00)
[2020-02-27] MEDS ORDERED: FLEXERIL PO PRN (18:24)
[2020-02-27] MEDS ORDERED: XANAX PO PRN (18:24)
[2020-02-27] MEDS ORDERED: LASIX TAB PO PRN (18:24)
[2020-02-27] MEDS ORDERED: VENTOLIN HFA (PER PUFF-WITH SPACER) IH PRN (18:29)
[2020-02-27] MEDS ORDERED: [UNRECOGNIZED DRUG - OTHER] IV SCH ×2 (18:30→21:00)
[2020-02-27] MEDS ORDERED: ROCEPHIN 2 GM/50 ML D5W 2 GM/50 ML BAG IV SCH (18:30)
[2020-02-27] MEDS ORDERED: POTASSIUM CHLORIDE IV SCH ×2 (18:30→21:00)
[2020-02-27] MEDS ORDERED: ADDITIVE ONLY IV SCH ×2 (18:30→21:00)
[2020-02-27] MEDS ORDERED: PREDNISONE PO SCH (18:30)
[2020-02-27] MEDS ORDERED: INFUVITE ADULT IV SCH ×2 (18:30→21:00)
[2020-02-27] MEDS ORDERED: POTASSIUM CHLORIDE 20 MEQ VIAL- ADDITIVE ONLY IV ONE (19:46)
[2020-02-27] MEDS ORDERED: INFUVITE ADULT IV ONE (19:46)
[2020-02-27] MEDS: NORCO 10-325 PO SCH (20:00)
[2020-02-27] MEDS: MUCINEX PO SCH (20:00)
[2020-02-27] MEDS: SYMBICORT 160-4.5 MCG INHALER IH SCH (20:00)
[2020-02-27] MEDS: DESYREL PO SCH (20:01)
[2020-02-27] MEDS: ARICEPT PO SCH (20:01)
[2020-02-27] MEDS ORDERED: NON-FORMULARY MEDICATION (Tiotropium Bromide [Spiriva Respimat] 2 PUFF) IH SCH (21:00)
[2020-02-27] MEDS ORDERED: LOPRESSOR PO SCH (21:00)
[2020-02-27] MEDS ORDERED: GLUCOPHAGE PO SCH (21:00)
[2020-02-28] MEDS: LIPITOR PO SCH (08:49)
[2020-02-28] MEDS: ZETIA PO SCH (08:49)
[2020-02-28] MEDS: PREDNISONE PO SCH (08:49)
[2020-02-28] MEDS: LOPRESSOR PO SCH ×2 (08:50→20:16)
[2020-02-28] MEDS: NORCO 10-325 PO SCH ×2 (08:50→20:16)
[2020-02-28] MEDS: PLAVIX PO SCH (08:50)
[2020-02-28] MEDS: GLUCOPHAGE PO SCH (08:51)
[2020-02-28] MEDS: PROTONIX PO SCH (08:51)
[2020-02-28] MEDS: MUCINEX PO SCH ×2 (08:51→20:15)
[2020-02-28] MEDS: ASPIRIN EC PO SCH (08:52)
[2020-02-28] MEDS: K-DUR PO SCH (08:52)
[2020-02-28] MEDS: SYMBICORT 160-4.5 MCG INHALER IH SCH ×2 (08:53→20:31)
[2020-02-28] MEDS: SPIRIVA IH SCH (08:53)
[2020-02-28] MEDS: INFUVITE ADULT 10 ML in DEXTROSE 5%-LR IV SOLUTION 1,000 ML IV SCH (11:25)
[2020-02-28] MEDS: DESYREL PO SCH (20:16)
[2020-02-28] MEDS: ARICEPT PO SCH (20:16)
[2020-02-28] MEDS ORDERED: ROCEPHIN 2 GM/50 ML D5W 2 GM/50 ML BAG IV SCH (21:00)
[2020-02-29] MEDS ORDERED: INFUVITE ADULT IV ONE (01:22)
[2020-02-29] MEDS: INFUVITE ADULT 10 ML in DEXTROSE 5%-LR IV SOLUTION 1,000 ML IV SCH (01:28)
[2020-02-29] MEDS: PROTONIX PO SCH (05:55)
[2020-02-29 07:36] LABS: ERYTHROCYTE SEDIMENTATION RATE 12 mm/hr (0-15)
[2020-02-29] MEDS: ASPIRIN EC PO SCH (08:36)
[2020-02-29] MEDS: LIPITOR PO SCH (08:37)
[2020-02-29] MEDS: PREDNISONE PO SCH (08:37)
[2020-02-29] MEDS: ZETIA PO SCH (08:37)
[2020-02-29] MEDS: K-DUR PO SCH (08:37)
[2020-02-29] MEDS: GLUCOPHAGE PO SCH (08:38)
[2020-02-29] MEDS: MUCINEX PO SCH (08:38)
[2020-02-29] MEDS: PLAVIX PO SCH (08:38)
[2020-02-29] MEDS: LOPRESSOR PO SCH (08:38)
[2020-02-29] MEDS: NORCO 10-325 PO SCH (08:39)
[2020-02-29] MEDS: SPIRIVA IH SCH (09:39)
[2020-02-29] MEDS: SYMBICORT 160-4.5 MCG INHALER IH SCH (09:39)
--- NOTE | 2020-02-29 10:16 | CT ---
EXAM: CT chest without contrast. HISTORY: Increased shortness of breath and cough. Inpatient.. TECHNIQUE: Transaxial CT performed just superior to the lung apices through the diaphragm 5 mm slice thickness without contrast.. COMPARISON: Chest one-view 02/27/2020. CT chest 07/17/2019 . FINDINGS: The thoracic aorta within normal limit in caliber with extensive calcified atheroscleroti c vascular disease. The heart size within normal limit. No pericardial effusion. Extensive coronar y artery vascular disease. Non-calcified mediastinal lymph nodes less than 1 cm short axis dimension .. Lungs fairly well expanded. Biapical symmetric pleural parenchymal scarring. Emphysematous change. New confluent pneumonitis left upper lobe with multifocal areas. Lingular atelectasis/pleural paren chymal scarring. More confluent focal pneumonitis left lower lobe. Interval improvement and right b asilar ground-glass pneumonitis. No pneumothorax or pleural effusion. Please see separately dictated CT abdomen pelvis without contrast for further evaluation.. Interval progression of compression fracture mid thoracic vertebral body which may be acute on chronic. Some retropulsion.. IMPRESSION: Marked emphysematous change. New confluent pneumonitis left upper lobe with multifocal areas. Lingular atelectasis/pleural parenc hymal scarring. More confluent focal pneumonitis left lower lobe. Interval improvement right basila r ground-glass pneumonitis. Recommendation is continued follow-up to document resolution. Acute on chronic compression fracture mid thoracic vertebral body. Some retropulsion. Correlate cli nically. Extensive coronary vascular disease.
--- NOTE | 2020-02-29 10:22 | CT ---
EXAM: CT abdomen pelvis without contrast. HISTORY: Enlarged round abdomen. Inpatient.. COMPARISON: CT abdomen pelvis 07/17/2019. TECHNIQUE: Transaxial CT performed lung bases through the pubic symphysis 3 mm slice thickness witho ut contrast. Coronal and sagittal reformatted imaging obtained. FINDINGS: Please see separately dictated CT chest 02/29/2020 for further evaluation. No focal hepatic lesion identified. Spleen within normal limits size. Pancreas of normal morphology . Both adrenal glands within normal limit in appearance. Prior cholecystectomy. Stomach moderately distended. No high-grade small bowel obstruction. No free intra-abdominal air. No abdominal or pe lvic ascites. Colonic diverticulosis mild amount of retained colonic stool Extensive calcified atherosclerotic vascular disease aorto-iliac tree. Bilateral iliac artery stenti ng. Bilateral renal parenchymal atrophy with perinephric stranding. No hydronephrosis. Calcificati ons associate with both kidneys. No hydronephrosis. No ureteral dilatation. No radiopaque ureteral or bladder calculi.. Prostate hypertrophy. No enlarged abdominal or pelvic lymphadenopathy identif ied.. IMPRESSION: Prior cholecystectomy. No high-grade small bowel obstruction. No free intra-abdominal air. No ascites. Some retained colo palmira stool. Extensive vascular disease. Bilateral renal parenchymal atrophy with perinephric stranding. No hydr onephrosis. No radiopaque ureteral or bladder calculi. Prostate hypertrophy. Colonic diverticulosis.
[2020-02-29 14:22] VITALS: BP 133/67; TEMP 98.7
[2020-03-05 20:11] LABS: METHYLMALONIC ACID TEST 162 nmol/L (0-378)
--- NOTE | 2020-06-25 10:37 | HP ---
DATE OF SERVICE: 02/27/20 CHIEF COMPLAINT: Cough and shortness of breath. HISTORY OF PRESENT ILLNESS: The patient in the last 2 to 3 days prior to presentation to the emergency room had been experiencing cough with congestion. He denied any fever or chills. This patient has home oxygen. Chest x-ray done in the emergency room, single view, showed no acute processes. The patient however has shortness of breath more so with exertion and has rales. The emergency room physician felt that he needed to be admitted to the hospital and they patient was then admitted with diagnosis of acute exacerbation of chronic obstructive pulmonary disease. PAST PERSONAL HISTORY: This patient had been admitted to a [facility] because of exacerbation of chronic obstructive lung disease. He also had a three vessel cardiac bypass, T6 compression fracture, COPD, hiatal hernia, history of myocardial infarction and history of pneumonia in the past. The patient was admitted on 07/21/19 because of pneumonia. The patient had gained weight with the Prednisone 10 mg daily. FAMILY HISTORY: The mother had gastric carcinoma and father had coronary artery disease. SOCIAL HISTORY: The patient is and resides with his . He had been a smoker but stopped several years ago. He denies any other medications other than the prescribed medications. No recent travel outside the [place]. MEDICATIONS: Fosamax 70 mg weekly Xanax 125 mg daily Aspirin 81 mg daily Lipitor 40 mg daily Formoterol 160/4.5 (Symbicort two puffs twice a day) Plavix 75 mg daily Cyclobenzaprine 10 mg three times a day p.r.n. Donepezil 5 mg at bedtime Ezetimibe 10 mg daily Lasix 20 mg daily Guaifenesin ER 1200 mg daily Hydrocodone/APAP 10-325 one twice a day Ipratropium/Albuterol 0.5 mg 3 mg/2.5 mg base) 3 mL q.i.d. Metformin 500 mg twice a day Metoprolol Tartrate 225 mg twice a day Nitroglycerin 0.4 mg sublingually as needed Pantoprazole 40 mg daily Prednisone 5 mg daily Spiriva 2.5 mcg/actuation one puff twice a day Trazodone 50 mg at bedtime ALLERGIES: LEVOFLOXACIN REVIEW OF SYSTEMS: CONSTITUTIONAL: The patient is alert complaining of some fatigue. HERBARIUM CURATOR: The patient is alert and oriented without any visual disturbances. CARDIOVASCULAR: Denies any chest pain. The patient had previous myocardial infarction with previous cardiac bypass. RESPIRATORY: The patient has cough with increasing shortness of breath. This patient has known COPD secondary to smoking but had stopped smoking several years ago. GASTROINTESTINAL: The patient's appetite is good and increasing weight would be from Prednisone. Denies any diarrhea. Abdomen seems to be protuberant. GENITOURINARY: No pain on urination, no urgency. INTEGUMENT: No rash or pruritus. ENDOCRINE: Negative. HEMATOLOGY: No history of prolonged bleeding or spontaneous bleeding, anemia. PSYCHIATRIC: Affect appears to be normal. Thinking process appears to be normal and he is cooperative. PHYSICAL EXAMINATION: GENERAL: This is a 79-year-old male admitted for further treatment of exacerbation of chronic obstructive pulmonary disease manifested as increasing shortness of breath. VITAL SIGNS: 3:50 p.m. 02/27/20, temperature 97.4, pulse 88, respiratory rate 16, oxygen saturation 95, weight 168 lbs, 6.9 ozs. BMI 25.6. Height 5'8". HEENT: Head unremarkable. Scalp: No active dermatitis. Face is symmetrical and equal with no facial weakness. No cyanosis. Mouth is unremarkable. NECK: No masses, no tenderness, no bruit. CHEST: Symmetrical and equal. Expansion is still adequate but still not good. LUNGS: Breath sounds are heard on both sides, diminished with rales, inspiratory and expiratory wheeze. HEART: Audible and regular with good tones. No murmurs. ABDOMEN: Protuberant, soft with no significant tenderness. No masses palpable. Bowel sounds are active. No bruit. EXTERNAL GENITALIA: Not examined. RECTAL: Not performed. LOWER EXTREMITIES: Essentially symmetrical and equal with no significant edema. Pedal pulses are not palpable. UPPER EXTREMITIES: Symmetrical and equal. ASSESSMENT: 1. Chronic obstructive lung disease with acute exacerbation. 2. Chronic respiratory failure on home oxygen. 3. History of hypertension. 4. History of myocardial infarction. 5. History of coronary artery bypass graft, three vessel. 6. Probable pneumonia although not seen on x-ray, one view. PROGNOSIS: Guarded. TIME SPENT: GREATER THAN 65 MINUTES MTDD
--- NOTE | 2020-06-26 11:56 | DS ---
DATE OF SERVICE: 02/29/2020 BRIEF HISTORY OF PRESENT ILLNESS/HOSPITAL COURSE: 79 year old male is known to have chronic lung obstructive lung disease on home oxygen at multiple medications presents to the emergency room because of cough and increasing shortness of breath in the last two days or more. The patient's chest x-ray was unremarkable one view and the physical findings were remarkable for rales in both sides as well as wheezing expiratory and inspiratory with increasing shortness of breath. The patient was given 125mg of Solu-Medrol in the emergency room. The patient also received Rocephin 2 grams intravenous on the floor on admission. The patient continued to improve and the rales has decreased as well as the wheezing. A chest CT done on 02/29/2020 showed extensive coronary artery vascular disease, new confluent pneumonitis left upper lobe with multifocal areas. More confluent focal pneumonitis in the left lower lobe. Acute on chronic fracture compression mid thoracic spine, T6 above and below. CT of abdomen and pelvis showed no significant abnormality to the liver, pancreas, adrenals. Stomach is moderately distended. There is no ascites. The patient wanted to go home since he felt better and discussed indeed he has a pneumonia worse on the left upper and lower lobes. The patient says that he is feeling better and so then the patient is discharged with medication Omnicef 300mg capsule to be take twice a day for a week. The patient is scheduled for DEXA scan and this was cancelled since the patient as well as the claimed that he had just had a DEXA not too long ago. FINAL DIAGNOSIS: 1. Left upper and lower lobe pneumonitis, stable 2. Dyspnea, improved 3. History of chronic obstructive lung disease 4. History of chronic tobacco use and abuse, stopped several years ago 5. History of myocardial infarction 6. History of coronary bypass graft three vessel 7. History of hypertension, controlled PROGNOSIS: Guarded. TIME SPENT: GREATER THAN 30 MINUTES MTDD
--- NOTE | 2020-07-02 08:15 | PN ---
DATE OF SERVICE: 02/27/20 SUBJECTIVE: 79-year-old male seen at the emergency room on 02/27/20 and was subsequently admitted. The patient was complaining of increasing shortness of breath with cough the last two days. The patient only had one chest x-ray which showed no significant findings. The patient was given Solu-Medrol 125 mg in the emergency room intravenously. This patient had been on Prednisone 5 mg daily. He previously was on 10 mg. OBJECTIVE: LUNGS: Inspiratory and expiratory wheeze on both sides with some rales. Breath sounds were markedly diminished. The patient's home medications were Fosamax, Alprazolam, Aspirin 81 mg, Lipitor 40 mg daily, Symbicort 160/4.5 two puffs twice a day, Cefdinir 300 mg q.12hr, Plavix 75 mg daily, Cyclobenzeprine 10 mg three times a day, Donepezil 5 mg at h.s., Mucinex ER 1200 twice a day, Ezetimibe 10 mg daily, Hydrocodone/APAP 10/325 mg twice a day, Ipratropium/Albuterol 2.5/cc nebulization twice a day, Metformin 500 mg twice a day, Metoprolol 20 mg twice a day, Nitroglyerin p.r.n. 0.4 mg, Pantoprazole 40 mg daily, Prednisone 5 mg daily, Spiriva 2.5 mcg/actuation two puffs twice a day, Trazodone 50 mg at bedtime. This patient will be given antibiotics while in the hospital and see what happens, he will be continued on his medications. DOMENICA
--- NOTE | 2020-07-02 08:21 | PN ---
DATE OF SERVICE: 02/28/20 SUBJECTIVE: The patient today is alert, feeling better. He still has some wheezing but less. He claims that he feels better. The patient received 2 gm of Rocephin yesterday and also today. OBJECTIVE: VITAL SIGNS: 02/28/20 @ 2 p.m. temperature 97.7, blood pressure 122/62, pulse 86, respiratory rate 20, oxygen saturation 97. No blood tests done today but yesterday the WBC was slightly elevated 13,740. Influenza A and B by nuclear amplification was negative yesterday 02/27/20 at the emergency room. Urinalysis in the emergency room was unremarkable. MTDD
== END 2020-02-29 15:20 | disposition home or self-care (01) | DRG 204 ==
LOC: ED 09:28 → SCU 14:13
PROVIDERS: ADMIT General Practice; ATTEND General Practice
DX: I10 Essential (primary) hypertension; Z87.891 Personal history of nicotine dependence; J18.9 Pneumonia, unspecified organism; R05 Cough; Z20.828 Contact with and (suspected) exposure to other viral communicable diseases; R06.02 Shortness of breath; R06.2 Wheezing; I25.2 Old myocardial infarction; E87.2 Acidosis; Z99.81 Dependence on supplemental oxygen; J96.10 Chronic respiratory failure, unspecified whether with hypoxia or hypercapnia

== ENCOUNTER 2021-05-04 09:58 | Inpatient (IN) ==
--- NOTE | 2021-05-04 11:04 | ED.PDOC ---
General ED Provider: Dr. STEPHANIE LANG Chief Complaint: Weakness Stated Complaint: CC Lower abdominal pain -Rt Mid and lower abdominal pain HPI:This 80 year old Male presented to the ER for evaluation of his weakness, Nausea, Vomiting LGI symptoms and UTI He was admitted for Observation under the service of Dr. RANGEL Appropriate standard of care initiated. Patient was in ER here yesterday, treated and released. He states his Abdominal pain has increased so he returned to ER this morning Evaluated in the ER and Dr Rangel agreed to admit for additional evaluation and treatment. Time Seen by Provider: 05/04/21 10:30 Mode of Arrival: Wheelchair Information Source: Patient Exam Limitations: Clinical condition Primary Care Provider: ROSANA RANGEL Referred to ED by: PCP Seen Within Last 72 Hours for Same Complaint By: ED Nursing and Triage Documentation Reviewed and Agree: Yes Does patient meet sepsis criteria?: No System Inflammatory Response Syndrome: Not Applicable Sepsis Protocol: For patient's 13 years and over: Temp is 96.8 and below OR 101 and greater Pulse >90 BPM Resp >20/minute Acutely Altered Mental Status Are patient's symptoms suggestive of a new infection, such as: -Pneumonia -Skin, Soft Tissue -Endocarditis -UTI -Bone, Joint Infection -Implantable Device -Acute Abdominal Infection -Wound Infection -Meningitis -Blood Stream Catheter Infection -Unknown GI Complaint Exam Abdominal Pain Complaint/Exam Onset: Gradual Duration: 2d Symptoms Are: Still present Timing: Constant Initial Severity: Moderate Current Severity: Moderate Location of Pain: RUQ, RLQ and Epigastric Radiates To: Reports Chest and Flank Character: Reports Sharp, Aching, Cramping and Colicky Aggravating: Reports Movement Alleviating: Reports None Associated Signs and Symptoms: Reports Dizziness, Decreased appetite and Decreased activity Testicular Torsion Risk Factors: Reports None Surgical Obstruction Risk Factors: Reports None Related Surgical History: Reports None Abdominal Findings: Present Abdominal distention, Rebound tenderness (RLQ) and Peritoneal signs; Absent McBurney's Point tender, CVA Tenderness, Hernia or Inguinal swelling Differential Diagnoses: Bowel Obstruction, Constipation, Diverticulitis, Pancreatitis, Renal Colic and Ureteral Stone Review of Systems Review Of Systems Constitutional: Reports No symptoms Eyes: Reports No symptoms Ears, Nose, Mouth, Throat: Reports No symptoms Respiratory: Reports No symptoms Cardiac: Reports No symptoms GI: Reports No symptoms and Abdominal pain : Reports Burning and Frequency Musculoskeletal: Reports No symptoms Skin: Reports No symptoms Neurological: Reports No symptoms Endocrine: Reports No symptoms Hematologic/Lymphatic: Reports No symptoms All Other Systems: Reviewed and Negative [facility] Medical History (Updated 05/14/21 @ 08:55 by STEPHANIE LANG DO) CAD (coronary artery disease) COPD (chronic obstructive pulmonary disease) Degenerative disc disease, lumbar Fracture, thoracic vertebra, compression GERD (gastroesophageal reflux disease) Hiatal hernia History of fall History of tobacco abuse Hypertension Impairment of balance Myocardial infarct PAD (peripheral artery disease) Family History Mother Stomach cancer FATHER Coronary artery arteriosclerosis Social History Smoking and tobacco status: Former smoker Alcohol intake: former Substance use type: does not use History of recent travel: No Surgical History (Updated 05/05/21 @ 09:18 by LUIS LEAHY, RN) History of back surgery History of coronary artery bypass graft x 3 History of coronary artery stent placement History of eye surgery History of neck surgery Physical Exam Physical Exam Appearance: Reports Ill-appearing and Thin Ill-appearing: Mild Pain Distress: Mild Eyes: Reports GINI, EOMI and Conjunctiva clear ENT: Reports Ears normal, Nose normal and Oropharynx normal Neck: Supple Respiratory: Reports Airway patent, Breath sounds clear and Breath sounds equal Cardiovascular: Reports RRR, Pulses normal, No rub and No murmur GI/: Reports No Organomegaly, Tender and Bowel sounds hyperactive; Denies Hepatomegaly or Splenomegaly Musculoskeletal: Reports Normal strength, ROM intact, No edema and No calf tenderness Skin: Reports Warm, Dry and Normal color Neurological: Reports Sensation intact, Motor intact, Reflexes intact, Cranial nerves intact, Alert and Oriented Psychiatric: Reports Affect appropriate, Mood appropriate and Anxious Interpretation Radiology Interpretation Exam Interpreted: CT Scan (indings suggest enteritis. Would recommend short- term follow-up if symptoms persist to exclude obstruction. 2. Right nephrolithiasis. 3. Diverticulosis. 4. Extensive atherosclerosis) Critical Care Note Critical Care Note Total Critical Care Time (mins): 30 Course Course Hematology/Chemistry: 05/07/21 05:05 05/07/21 05:05 Orders, Labs, Meds: Lab Review 05/04/21 05/04/21 05/04/21 11:28 11:28 11:28 WBC 14.80 H D RBC 4.91 Hgb 14.4 Hct 43.9 MCV 89.4 MCH 29.3 MCHC 32.8 RDW Coeff of Miquel 13.4 Plt Count 304 Immature Gran % (Auto) 0.2 Neut % (Auto) 84.0 H Lymph % (Auto) 7.2 L [place] % (Auto) 8.4 Eos % (Auto) 0.0 Baso % (Auto) 0.2 Neut # (Auto) 12.4 H Lymph # (Auto) 1.1 [place] # (Auto) 1.3 Eos # (Auto) 0.0 Baso # (Auto) 0.0 Immature Gran # (Auto) 0.0 ESR 71 H Sodium 136.6 Potassium 4.15 Chloride 97.1 L Carbon Dioxide 29.2 Anion Gap 14.45 BUN 20.0 Creatinine 1.03 Estimated GFR (MDRD) 69.00 BUN/Creatinine Ratio 19.41 Glucose 139.9 H D Lactic Acid Uric Acid 7.33 Calcium 9.94 Magnesium 2.04 Total Bilirubin 0.52 AST 22.1 ALT 13.3 Alkaline Phosphatase 54.7 L Total Creatine Kinase < 20.0 L Total Protein 7.24 Albumin 4.12 Globulin 3.12 Albumin/Globulin Ratio 1.32 Amylase 81.8 Lipase 22.5 L Adenovirus (PCR) B. pertussis DNA (PCR) B.parapertussis DNA PCR C. pneumoniae DNA (PCR) Coronavirus OC43 (PCR) Coronavirus HKU1 (PCR) Coronavirus 229E (PCR) Coronavirus NL63 (PCR) Human Metapneumovir PCR Influenza Type A (PCR) Influenza B (RT-PCR) M. pneumoniae (PCR) Parainfluenza 1 (PCR) Parainfluenza 2 (PCR) Parainfluenza 3 (PCR) Parainfluenza 4 (PCR) RSV (PCR) Entero/Rhino (PCR) SARS-CoV-2 (PCR) 05/04/21 05/04/21 11:33 11:35 WBC RBC Hgb Hct MCV MCH MCHC RDW Coeff of Miquel Plt Count Immature Gran % (Auto) Neut % (Auto) Lymph % (Auto) [place] % (Auto) Eos % (Auto) Baso % (Auto) Neut # (Auto) Lymph # (Auto) [place] # (Auto) Eos # (Auto) Baso # (Auto) Immature Gran # (Auto) ESR Sodium Potassium Chloride Carbon Dioxide Anion Gap BUN Creatinine Estimated GFR (MDRD) BUN/Creatinine Ratio Glucose Lactic Acid 3.06 H Uric Acid Calcium Magnesium Total Bilirubin AST ALT Alkaline Phosphatase Total Creatine Kinase Total Protein Albumin Globulin Albumin/Globulin Ratio Amylase Lipase Adenovirus (PCR) Not detected B. pertussis DNA (PCR) Not detected B.parapertussis DNA PCR Not detected C. pneumoniae DNA (PCR) Not detected Coronavirus OC43 (PCR) Not detected Coronavirus HKU1 (PCR) Not detected Coronavirus 229E (PCR) Not detected Coronavirus NL63 (PCR) Not detected Human Metapneumovir PCR Not detected Influenza Type A (PCR) Not detected Influenza B (RT-PCR) Not detected M. pneumoniae (PCR) Not detected Parainfluenza 1 (PCR) Not detected Parainfluenza 2 (PCR) Not detected Parainfluenza 3 (PCR) Not detected Parainfluenza 4 (PCR) Not detected RSV (PCR) Not detected Entero/Rhino (PCR) Not detected SARS-CoV-2 (PCR) Not detected Orders Category Date Time Status NPO REMINDER: IMAGING ONCE CARE 05/04/21 11:07 Completed IV [ED IV/MEDIPORT/POWERPORT] .ONCE EMERGENCY 05/04/21 11:07 Completed AMYLASE Stat LAB 05/04/21 11:28 Completed BLOOD CULTURE (ED ONLY) Stat LAB 05/04/21 11:28 Completed CBC W/ AUTO DIFF Stat LAB 05/04/21 11:28 Completed CMP [COMPREHENSIVE METABOLIC PANEL] Stat LAB 05/04/21 11:28 Completed CPK [CREATINE KINASE] Stat LAB 05/04/21 11:28 Completed ESR Stat LAB 05/04/21 11:28 Completed LACTIC ACID Stat LAB 05/04/21 11:33 Completed LIPASE Stat LAB 05/04/21 11:28 Completed MAGNESIUM Stat LAB 05/04/21 11:28 Completed RESPIRATORY PANEL 2.1 (PCR) Stat LAB 05/04/21 11:35 Completed URIC ACID Stat LAB 05/04/21 11:28 Completed 0.9 % Sodium Chloride [Saline Flush] MEDS 05/04/21 11:07 Discontinued 1 syr IVF PRN PRN Methylprednisolone Sod Succ/Pf [Solu-Medrol 40 mg] MEDS 05/04/21 14:09 Discontinued 40 mg IVP ONCE ONE Metronidazole/Sodium Chloride [Flagyl 500 mg/100 ml] MEDS 05/04/21 14:30 Discontinued 500 mg in 100 ml IV Q8HR Piperacillin Sodium/Tazobactam [Zosyn 3.375 gm] 3.375 MEDS 05/04/21 14:04 Discontinued gm 0.9 % Sodium Chloride [Sodium Chloride] 50 ml IV ONCE Sodium Chloride 0.9% [Sodium Chloride] 1,000 ml MEDS 05/04/21 14:30 Discontinued IV DAILY CHEST, 2 VIEWS PA & LAT Stat RADS 05/04/21 11:[address] ABDOMEN/PELVIS W/WO CONTRAS Stat RADS 05/04/21 11:07 Completed Medications Discontinued Medications Generic Name Dose Route Start Last Admin Trade Name Freq PRN Reason Stop Dose Admin Hydrocodone Bitart/Acetaminophen 1 tab 05/05/21 17:18 05/05/21 17:39 Hydrocodone Bit/Acetaminophen 10/325 Mg Tablet PO 1 tab BID PRN Administration Pain Albuterol Sulfate 2 puff 05/04/21 14:38 Albuterol Sulfate (Ventolin Hfa) 18 Gm 1 Puff With Spacer IH Q6H PRN Cold Symptons Alprazolam 0.25 mg 05/04/21 14:38 05/06/21 21:22 Alprazolam 0.25 Mg Tablet PO 0.25 mg DAILY PRN Administration Anxiety Aspirin 81 mg 05/05/21 08:30 05/07/21 08:20 Aspirin 81 Mg Tablet.Dr PO 81 mg DAILYWM NEELIMA Administration Benzonatate 100 mg 05/04/21 14:38 Benzonatate 100 Mg Capsule PO TID PRN Anxiety Budesonide/Formoterol Fumarate 2 puff 05/04/21 21:00 05/07/21 08:19 Budesonide/Formoterol Fumarate 160/4.5 Mcg Inhaler IH 2 puff BID NEELIMA Administration Cefdinir 300 mg 05/06/21 21:00 05/07/21 08:21 Cefdinir 300 Mg Capsule PO 05/09/21 20:59 300 mg BID NEELMIA Administration Clopidogrel Bisulfate 75 mg 05/05/21 09:00 05/07/21 08:21 Clopidogrel Bisulfate 75 Mg Tablet PO 75 mg DAILY NEELIMA Administration Donepezil HCl 5 mg 05/04/21 21:00 05/06/21 20:36 Donepezil Hcl 10 Mg Tablet PO 5 mg BEDTIME NEELIMA Administration Ezetimibe 10 mg 05/05/21 09:00 05/07/21 08:21 Ezetimibe 10 Mg Tablet PO 10 mg DAILY NEELIMA Administration Guaifenesin/Dextromethorphan 2 each 05/04/21 21:00 05/07/21 08:21 Guaifenesin/Dextromethorphan 1 Each Tab.Er.12h PO 2 each Q12HR NEELIMA Administration Piperacillin Sod/Tazobactam 50 mls @ 50 mls/hr 05/04/21 14:04 05/04/21 14:43 Sod 3.375 gm/ Sodium Chloride IV 05/04/21 15:03 50 mls/hr ONCE ONE Administration Metronidazole 500 mg in 100 mls @ 100 mls/hr 05/04/21 14:30 05/06/21 05:08 Flagyl 500 Mg/100 Ml IV 05/07/21 14:29 100 mls/hr Q8HR NEELIMA Administration Sodium Chloride 1,000 mls @ 125 mls/hr 05/04/21 14:30 05/05/21 14:23 Sodium Chloride IV Not Given DAILY NEELIMA Piperacillin Sod/Tazobactam 50 mls @ 50 mls/hr 05/04/21 21:00 05/05/21 02:59 Sod 3.375 gm/ Sodium Chloride IV 05/07/21 20:59 50 mls/hr Q6H NEELIMA Administration Piperacillin Sod/Tazobactam 50 mls @ 50 mls/hr 05/05/21 09:00 05/06/21 17:25 Sod 3.375 gm/ Sodium Chloride IV 05/07/21 08:59 Not Given Q6HR NEELIMA Potassium Chloride/Sodium Chloride 1,000 mls @ 50 mls/hr 05/05/21 13:30 05/06/21 17:24 Sodium Chloride 0.9%-Kcl 20 Meq IV Not Given .Q20H [facility] Insulin Human Regular 0 unit 05/04/21 17:41 05/04/21 21:01 Insulin Regular, Human 100 Unit/Ml (3ml) Vial SUBCUT 6 unit PRN PRN Administration Hyperglycemia Protocol Metformin HCl 500 mg 05/04/21 17:00 Metformin Hcl 500 Mg Tablet PO BIDWM [facility] Methylprednisolone Sodium Succinate 40 mg 05/04/21 14:09 05/04/21 14:43 Methylprednisolone Sod Succ/Pf 40 Mg/Ml Vial IVP 05/04/21 14:10 40 mg ONCE ONE Administration Metoprolol Tartrate 25 mg 05/05/21 21:00 05/07/21 08:20 Metoprolol Tartrate 50 Mg Tablet PO 25 mg BID NEELIMA Administration Metronidazole 500 mg 05/06/21 13:00 05/07/21 05:48 Metronidazole 250 Mg Tablet PO 05/09/21 12:59 500 mg Q8HR NEELIMA Administration Montelukast Sodium 10 mg 05/05/21 09:00 05/07/21 08:20 Montelukast Sodium 10 Mg Tablet PO 10 mg DAILY NEELIMA Administration Non-Formulary Medication 500 mcg 05/08/21 09:00 Cyanocobalamin (Vitamin B-12) [Vitamin B-12] PO DAILY NEELIMA Pantoprazole Sodium 40 mg 05/06/21 09:00 05/07/21 05:48 Pantoprazole Sodium 40 Mg Tablet. PO 40 mg QDAC NEELIMA Administration Pantoprazole Sodium 40 mg 05/05/21 18:09 05/05/21 18:19 Pantoprazole Sodium 40 Mg Tablet.Dr PO 05/05/21 18:10 40 mg ONCE ONE Administration Potassium Chloride 10 meq 05/05/21 13:30 05/07/21 08:21 Potassium Chloride 10 Meq Capsule.Er PO 10 meq BIDWM NEELIMA Administration Prednisone 10 mg 05/06/21 09:00 05/07/21 08:21 Prednisone 5 Mg Tablet PO 10 mg DAILY NEELIMA Administration Sodium Chloride 1 syr 05/04/21 11:07 05/04/21 14:43 0.9% Sodium Chloride 10 Ml Disp.Syrin IVF 1 syr PRN PRN Administration To flush IV Vital Signs: Temp Pulse Resp BP Pulse Ox 05/04/21 10:15 119/63 05/04/21 09:59 97.0 F L 97 H 20 80/55 L 95 Discharge Plan Discharge Patient Disposition: PLACED OBSERVATION Discharge Problem: Enteritis, Muscle weakness, UTI (urinary tract infection) ED Provider: TSEPHANIE LANG Condition: Good Physician Progress Note: []
[2021-05-04 11:36] LABS: BASOPHILS % (AUTO) 0.2 % (0.0-3.0); HEMATOCRIT 43.9 % (42.0-52.0); HEMOGLOBIN 14.4 g/dl (14.0-18.0); IMMATURE GRANULOCYTE % (AUTO) 0.2 % (0.0-5.0); LYMPHOCYTES # (AUTO) 1.1 K/uL (0.60-3.4); LYMPHOCYTES % (AUTO) 7.2 (10.0-50.0); MEAN CORPUSCULAR HEMOGLOBIN 29.3 pg (27.0-31.0); MEAN CORPUSCULAR HGB CONC 32.8 (31.8-35.4); MEAN CORPUSCULAR VOLUME 89.4 fl (80.0-94.0); MONOCYTES # (AUTO) 1.3 K/uL (0.4-2.0); MONOCYTES % (AUTO) 8.4 (0-10); NEUTROPHILS # (AUTO) 12.4 K/ul (2.0-6.9); PLATELET COUNT 304 10^3/uL (140-440); RDW COEFFICIENT OF VARIATION 13.4 % (11.6-14.8); RED BLOOD COUNT 4.91 10^6/ul (4.70-6.10)
[2021-05-04 11:40] LABS: BORDETELLA PARAPERTUSSIS (PCR) NOT DETECTED (NOT DETECT); BORDETELLA PERTUSSIS (PCR) NOT DETECTED (NOT DETECT); CHLAMYDIA PNEUMONIAE (PCR) NOT DETECTED (NOT DETECT); CORONAVIRUS 229E (PCR) NOT DETECTED (NOT DETECT); CORONAVIRUS HKU1 (PCR) NOT DETECTED (NOT DETECT); CORONAVIRUS NL63 (PCR) NOT DETECTED (NOT DETECT); CORONAVIRUS OC43 (PCR) NOT DETECTED (NOT DETECT); HUMAN METAPNEUMOVIRUS (PCR) NOT DETECTED (NOT DETECT); HUMAN RHINOVIRUS/ENTEROV (PCR) NOT DETECTED (NOT DETECT); INFLUENZA B (PCR) NOT DETECTED (NOT DETECT); MYCOPLASMA PNEUMONIAE (PCR) NOT DETECTED (NOT DETECT); PARAINFLUENZA VIRUS 1 (PCR) NOT DETECTED (NOT DETECT); PARAINFLUENZA VIRUS 2 (PCR) NOT DETECTED (NOT DETECT); PARAINFLUENZA VIRUS 3 (PCR) NOT DETECTED (NOT DETECT); PARAINFLUENZA VIRUS 4 (PCR) NOT DETECTED (NOT DETECT); RESPIRATORY SYNCYTIAL V (PCR) NOT DETECTED (NOT DETECT); SARS_COV_2 (PCR) NOT DETECTED (NOT DETECT)
[2021-05-04 11:48] LABS: ALBUMIN 4.12 g/dL (3.5-5.0); ALKALINE PHOSPHATASE 54.7 U/L (56-119); AMYLASE 81.8 U/L (30-110); ASPARTATE AMINO TRANSFERASE 22.1 U/L (17-59); BILIRUBIN,TOTAL 0.52 mg/dL (0.2-1.3); CALCIUM 9.94 mg/dL (8.4-10.2); CARBON DIOXIDE 29.2 mmol/L (22-30.0); CHLORIDE 97.1 mmol/L (98-107); CREATININE 1.03 mg/dL (0.60-1.10); GLUCOSE 139.9 mg/dL (74-106); LIPASE 22.5 U/L (23-300); MAGNESIUM 2.04 mg/dL (1.6-2.3); POTASSIUM 4.15 mmol/L (3.5-5.1); SODIUM 136.6 mmol/L (134.5-145); TOTAL PROTEIN 7.24 g/dL (6.3-8.2); URIC ACID 7.33 mg/dL (3.5-8.5)
[2021-05-04 11:49] LABS: CREATINE KINASE < 20.0 U/L (55-170)
[2021-05-04 11:56] LABS: ALANINE AMINOTRANSFERASE 13.3 U/L (0-50)
[2021-05-04 12:20] LABS: ERYTHROCYTE SEDIMENTATION RATE 71 mm/hr (0-15)
[2021-05-04 12:38] LABS: ADENOVIRUS (PCR) NOT DETECTED (NOT DETECT)
--- NOTE | 2021-05-04 13:05 | DI ---
EXAM: Chest two views HISTORY: Chest pain COMPARISON: TECHNIQUE: Two views of the chest were performed FINDINGS: The lungs are clear. Lungs are hyperinflated. There is no pleural effusion or pneumothor ax. The heart is normal in size. The mediastinal contour is normal, noting atherosclerosis. There are no acute abnormalities of the bones. IMPRESSION: 1. No acute cardiopulmonary process. 2. Hyperinflated lungs may suggest chronic obstructive pulmonary disease.
--- NOTE | 2021-05-04 13:14 | CT ---
EXAM: CT Abdomen with and without contrast. CT Pelvis with and without contrast. HISTORY: Abdominal pain. COMPARISON: 1 day prior as well as 01/10/2021, 02/29/2020, 07/17. TECHNIQUE: Multiple axial images of the abdomen and pelvis were obtained prior to and following intr avenous administration of 75 mL Omnipaque 350, low osmolar. Images were reformatted in the sagittal and coronal plane. FINDINGS: Coronary artery calcifications noted. Lung bases are clear. Degenerative changes in the spine. Hardware at the facet joints of the L5-S1 level noted. Gallbladder absent. The liver, pancreas, spleen, adrenal glands are unremarkable. Right nephrolithiasis. No hydronephrosis. Mild bilateral perinephric stranding. Bladder normal. There is mild fluid distension of multiple small bowel loops with some mild wall thickening in the lo wer abdomen. There is gradual tapering distally. No overt transition point. Large bowel normal in caliber. Appendix not seen. Diverticulosis present. No free fluid, free air or lymphadenopathy. Mild mesenteric edema and prominence of the lower mesent laila vasculature. Sutures along the ventral abdominal wall. Coarse prostatic calcifications. There are extensive atherosclerotic calcifications with bilateral iliac artery stents. Left femoral artery stent with areas of stenosis probably present in both iliac and femoral artery systems, not we ll characterized. IMPRESSION: 1. Findings suggest enteritis. Would recommend short-term follow-up if symptoms persist to exclude obstruction. 2. Right nephrolithiasis. 3. Diverticulosis. 4. Extensive atherosclerosis. All CT scans are performed using dose optimization techniques as appropriate to the performed exam an d include at least one of the following: Automated exposure control, adjustment of the mA and/or kV according t o size, and the use of iterative reconstruction technique.
[2021-05-04] MEDS ORDERED: ZOSYN 3.375 GM 3.375 GM in SODIUM CHLORIDE 50 ML IV ONE (14:04)
[2021-05-04] MEDS ORDERED: SOLU-MEDROL 40 MG IVP ONE (14:09)
[2021-05-04] MEDS ORDERED: TESSALON PERLES PO PRN (14:38)
[2021-05-04] MEDS ORDERED: VENTOLIN HFA (PER PUFF-WITH SPACER) IH PRN (14:38)
[2021-05-04] MEDS: SODIUM CHLORIDE 1,000 ML IV SCH (14:43)
[2021-05-04] MEDS ORDERED: NON-FORMULARY MEDICATION (Dextromethorphan-Guaifenesin [Mucinex Dm] 60-1,200 mg Tablet Ext PO SCH (14:45)
[2021-05-04 15:39] VITALS: BMI 24.4
[2021-05-04] MEDS ORDERED: GLUCOPHAGE PO SCH (17:00)
[2021-05-04] MEDS ORDERED: HUMULIN R SUBCUT PRN (17:41)
[2021-05-04] MEDS: FLAGYL 500 MG/100 ML 500 MG/100 ML BAG IV SCH ×2 (17:50→22:28)
[2021-05-04] MEDS: SYMBICORT 160-4.5 MCG INHALER IH SCH (20:58)
[2021-05-04] MEDS: MUCINEX DM ER 600-30 MG TABLET PO SCH (20:59)
[2021-05-04] MEDS: ARICEPT PO SCH (21:00)
[2021-05-04] MEDS: ZOSYN 3.375 GM 3.375 GM in SODIUM CHLORIDE 50 ML IV SCH (21:19)
[2021-05-04] MEDS: XANAX PO PRN (21:31)
[2021-05-05] MEDS: SODIUM CHLORIDE 1,000 ML IV SCH ×2 (02:59→14:23)
[2021-05-05] MEDS: ZOSYN 3.375 GM 3.375 GM in SODIUM CHLORIDE 50 ML IV SCH ×4 (02:59→20:35)
[2021-05-05] MEDS: FLAGYL 500 MG/100 ML 500 MG/100 ML BAG IV SCH ×3 (05:22→21:49)
[2021-05-05] MEDS: SINGULAIR PO SCH (09:25)
[2021-05-05] MEDS: ZETIA PO SCH (09:25)
[2021-05-05] MEDS: MUCINEX DM ER 600-30 MG TABLET PO SCH ×2 (09:25→20:35)
[2021-05-05] MEDS: ASPIRIN EC PO SCH (09:26)
[2021-05-05] MEDS: PLAVIX PO SCH (09:26)
[2021-05-05] MEDS: SYMBICORT 160-4.5 MCG INHALER IH SCH ×2 (09:27→21:20)
[2021-05-05 10:33] LABS: BASOPHILS % (AUTO) 0.1 % (0.0-3.0); HEMATOCRIT 41.3 % (42.0-52.0); HEMOGLOBIN 13.4 g/dl (14.0-18.0); IMMATURE GRANULOCYTE % (AUTO) 0.3 % (0.0-5.0); LYMPHOCYTES # (AUTO) 1.3 K/uL (0.60-3.4); LYMPHOCYTES % (AUTO) 9.1 (10.0-50.0); MEAN CORPUSCULAR HEMOGLOBIN 29.2 pg (27.0-31.0); MEAN CORPUSCULAR HGB CONC 32.4 (31.8-35.4); MONOCYTES # (AUTO) 0.7 K/uL (0.4-2.0); MONOCYTES % (AUTO) 4.6 (0-10); NEUTROPHILS # (AUTO) 12.2 K/ul (2.0-6.9); NEUTROPHILS % (AUTO) 85.9 % (42.2-75.2); PLATELET COUNT 260 10^3/uL (140-440); RDW COEFFICIENT OF VARIATION 13.3 % (11.6-14.8); RED BLOOD COUNT 4.59 10^6/ul (4.70-6.10); WHITE BLOOD COUNT 14.17 K/ul (4.2-10.2)
[2021-05-05 10:44] LABS: ALBUMIN 3.72 g/dL (3.5-5.0); ALKALINE PHOSPHATASE 52.3 U/L (56-119); ASPARTATE AMINO TRANSFERASE 24.9 U/L (17-59); BILIRUBIN,TOTAL 0.39 mg/dL (0.2-1.3); BLOOD UREA NITROGEN 14.6 mg/dL (9-20); CALCIUM 9.09 mg/dL (8.4-10.2); CARBON DIOXIDE 26.1 mmol/L (22-30.0); CHLORIDE 100.8 mmol/L (98-107); CREATININE 0.78 mg/dL (0.60-1.10); GLUCOSE 126.3 mg/dL (74-106); POTASSIUM 3.17 mmol/L (3.5-5.1); TOTAL PROTEIN 6.83 g/dL (6.3-8.2)
[2021-05-05 10:50] LABS: ALANINE AMINOTRANSFERASE 16.6 U/L (0-50)
[2021-05-05] MEDS: SODIUM CHLORIDE 0.9%-KCL 20 MEQ 1,000 ML IV SCH (13:42)
[2021-05-05] MEDS: MICRO-K CAP PO SCH ×2 (13:43→17:01)
--- NOTE | 2021-05-05 15:40 | RS.OTINEVL ---
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 - Level of function Prior to this admission, the patient could do the following:: Independent Selfcare, Independent Ambulation, Drive Abilities prior to this admission: Pt was able to walk further than today and was Independent with walking prior to Monday04/30/21. Current Level of Function: Partially Dependent Comments: Pt has tremors or shaking in BUE hands. Pt had LOB x 3 when trying to walk with the straight cane.Pt walked much more controlled with the RW. Pt has a ramp that he uses to get into the house. Pt is having increased difficulty with bathing, dressing, and toileting. Current Equipment Used at Home: Straight cane, quad cane, Interventions - Objective Patient Orientation: Person, Place, Situation Current Interventions: IV's, Oxygen Interventions - ROM Right Upper Extremity AROM: Slight limitation Left Upper Extremity AROM: Slight limitation - Strength Right Upper Extremity Strength: Mild Weakness Left Upper Extremity Strength: Mild Weakness - Sensation Right Upper Extremity Sensation: Intact/Normal Left Upper Extremity Sensation: Intact/Normal Balance - Sitting Balance Static Sitting Balance: Fair Dynamic Sitting Balance: Fair - Standing Balance Static Standing Balance: Poor Dynamic Standing Balance: Poor ADL Skills - Self Feeding Self Feeding: Independent - Grooming Grooming: Min Assist - Bathing Bathing UE: Min Assist Bathing LE: Mod Assist Bathing Set-up: Shower, Sitting - Dressing Dressing UE: Min Assist Dressing LE: Min Assist - Toilet Management Toilet Hygiene: Min Assist Toilet Clothing Management: Min Assist Functional Mobility - Transfers Sit to Stand: Min Assist Stand to Sit: Min Assist Stand Pivot Transfers: Min Assist - Ambulation Weight Bearing Status: FWB Assistive Device Used: Rolling Walker Assistance needed with Ambulation: Min Assist, 1 person assist - Safety Awareness Safety Awareness: Fair LUISA INDEX SCORE: . Additional Treatment Performed - Time with patient Length of Evaluation: 18 Total treatment time: 20 Activities Do you enjoy playing games?: Yes Would you be interested in leaving your room for activities?: Yes Would you enjoy group activities?: Yes Patient Interests:: Watching Television, Visiting/Socializing Patient Education Patient Education: Home Safety, Education of Plan of Care Teaching Recipient: Patient Teaching Methods: Discussion, Demonstration Assessment Problem List:: Decreased level of function, Requires training/education, Decreased safety/Risk of falls, Weakness Rehab Potential: Good Further Therapy Indicated?: Yes Evaluation Complexity: HISTORY: Medium, EXAM OF BODY SYSTEMS: Medium, CLINICAL DECISION MAKING: Medium Patient's Goal(s): To get stronger and independent with his self care. Short Term Goals - Goals GOAL 1: Pt to increase functional act. norah. to 10 minutes. Goal to be met by: 05/10/21 GOAL 2: Pt to be CGA with sink level ADLs. Goal to be met by: 05/10/21 GOAL 3: Pt to increase dyn std. bal. to F+ for self cares. Goal to be met by: 05/10/21 GOAL 4: Pt to increase BUE strength to 4+/5. Goal to be met by: 05/10/21 Healthcare Insurance Sales Agent Goals GOAL 1: Pt to be SUP for self cares. Goal to be met by: 05/13/21 GOAL 2: Pt to increase dyn. std. bal. to G- for safety of ADLS. Goal to be met by: 05/13/21 GOAL 3: Pt to increase activity tolerance to 15 minutes. Goal to be met by: 05/13/21 Plan Plan of Care: Therapeutic EX, Therapeutic Activity, Self-Care/Home Management Frequency of Treatment: 1-2 X day, as tolerated Duration of Treatment: 1 Week Anticipated Discharge Destination: Home Treatment Diagnosis (ICD 10 Codes): Weakness R53.1, Z74.1 Need for assistance with personal care. Has the Physician been added for Co-signature?: Yes
--- NOTE | 2021-05-05 16:41 | RS.PTINEVL ---
Subjective - Patient information Date of Evaluation: 05/05/21 Date of Arrival on Unit: 05/04/21 Usual Living Arrangement: With Spouse Home Environment: House, Stairs (few), Rail, Ramp Medical History Comments:: UTI, Diverticulitis, Chronic back pain, CAD, COPD, DDD lumbar spine, Diabetes, Emphysema, GERD, HTN, [place] Surgical History Comments:: Back Sx, Neck Sx, CABG, Stent, eye sx Subjective Information/ Patient Comments:: Patient states he just needs the oxygen at night. States he uses a cane with ambulation. states she has tried to get him to use a rolling walker. Reports dizziness with position change during evaluation. - Level of function Prior to this admission, the patient could do the following:: Independent Jessica fcare, Independent Ambulation, Drive Current Level of Function: Partially Dependent Current Equipment Used at Home: Straight cane, quad cane, Interventions - Objective Patient Orientation: Person, Place, Time, Situation Current Interventions: IV's, Oxygen Range of Motion - ROM Right Lower Extremity AROM: WFL's Left Lower Extremity AROM: WFL's Muscle Strength - Muscle Strength Right Lower Extremity Strength: Mild Weakness Left Lower Extremity Strength: Mild Weakness Sensation - Sensation Right Lower Extremity Sensation: Intact/Normal Left Lower Extremity Sensation: Intact/Normal Balance - Sitting Balance and Reactions Static Sitting Balance: Good Dynamic Sitting Balance: Fair (+) Sitting Equilibrium Reactions: Delayed Left, Delayed Right Sitting Protective Reactions: Delayed Left, Delayed Right - Standing Balance and Reactions Static Standing Balance: Fair (-) Dynamic Standing Balance: Fair (-) Standing Equilibrium Reactions: Delayed Left, Delayed Right Standing Protective Reactions: Delayed Left, Delayed Right Functional Mobility - Bed Mobility Supine to Sit: CGA, 1 person assist, Verbal Cues, Tactile Cues - Transfers Sit to Stand: CGA, 2 person assist, Verbal Cues, Tactile Cues Stand to Sit: Supervision, 1 person assist, Verbal Cues Stand Pivot Transfers: Supervision, CGA, 1 person assist, 2 person assist Comments:: Patient unsteady with immediate standing, needs tactile cues to avoid loss of balance. - Safety Awareness Safety Awareness: Fair LUISA INDEX SCORE: NA Ambulation - Ambulation Weight Bearing Status: FWB Assistive Device Used: Rolling Walker Orthotic/Prosthetic Device: No Distance: 150 feet Assistance needed with Ambulation: CGA, 2 person assist, Verbal Cues, Tactile Cues Quality of Ambulation: Ambulated with O2 at 2 L Gait Deviations: Narrow Based gait, Short stride, Deviates from path Factors Affecting Ambulation: Decreased Balance, Breathing/O2 Saturation, Weakness, Limited Endurance Treatment time - Time with patient Length of Evaluation: 21 mins Total treatment time: 28 (mins) Patient Education - Education Patient Education: Education of diagnosis Teaching Recipient: Patient Teaching Methods: Teach Back Method Used, Discussion, Demonstration Comments: safety with transfers and ambulation Assessment - Assessment Problem List:: Decreased level of function, Requires training/education, Decrea sed safety/Risk of falls, Weakness Rehab Potential: Good Further Therapy Indicated?: Yes Candidate for Swing Bed for Therapy Services?: Would need to reassess. Expect patient to improve over the next few days. Evaluation Complexity: HISTORY: Medium (UTI, hx falls, HTN, Diabetes, emphysema), EXAM OF BODY SYSTEMS: Medium, CLINICAL PRESENTATION: Medium, CLINICAL DECISION MAKING: Medium Patient's Goal(s): His goal is to return home as soon as he can. Short Term Goals GOAL #1: Supine to sit and sit to supine independent with VC's. Goal to be met by: 05/07/21 GOAL #2: Sit to stand with CGA of 1 and good safety. Goal to be met by: 05/07/21 GOAL #3: Patient will demonstrate no loss of balance upon immediate standing. Goal to be met by: 05/07/21 GOAL #4: Pt to amb. with RW 100 feet with CGA of one and good base of support. Goal to be met by: 05/07/21 Longterm Goals GOAL #1: All bed mobility independent. Goal to be met by: 05/10/21 GOAL #2: Pt to perform all transfers with SBA and good safety. Goal to be met by: 05/10/21 GOAL #3: Pt to amb. with RW household distances, SBA with good safety. Goal to be met by: 05/10/21 Plan Plan of Care: Therapeutic EX, Neuromuscular Re-Educ, Therapeutic Activity, Self- Care/Home Management Frequency of Treatment: 1-2 X day, as tolerated Duration of Treatment: 4-5 days Anticipated Discharge Destination: Home Treatment Diagnosis (ICD 10 Codes): R26.81 Balance impaired, R 26.2 difficulty walking, Z91.81 at risk for falls. Has the Physician been added for Co-signature?: Yes
[2021-05-05] MEDS ORDERED: NORCO 10-325 PO PRN (17:18)
[2021-05-05] MEDS ORDERED: PROTONIX PO ONE (18:09)
[2021-05-05] MEDS: ARICEPT PO SCH (20:36)
[2021-05-05] MEDS: LOPRESSOR PO SCH (20:38)
[2021-05-06] MEDS: ZOSYN 3.375 GM 3.375 GM in SODIUM CHLORIDE 50 ML IV SCH ×4 (01:37→17:25)
[2021-05-06] MEDS: FLAGYL 500 MG/100 ML 500 MG/100 ML BAG IV SCH (05:08)
[2021-05-06 05:18] LABS: BASOPHILS % (AUTO) 0.2 % (0.0-3.0); EOSINOPHILS # (AUTO) 0.1 K/ul (0.0-0.7); EOSINOPHILS % (AUTO) 0.4 % (0.0-7.0); HEMATOCRIT 41.7 % (42.0-52.0); HEMOGLOBIN 13.3 g/dl (14.0-18.0); IMMATURE GRANULOCYTE # (AUTO) 0.1 (0.0-1.0); IMMATURE GRANULOCYTE % (AUTO) 0.5 % (0.0-5.0); LYMPHOCYTES # (AUTO) 1.2 K/uL (0.60-3.4); LYMPHOCYTES % (AUTO) 8.6 (10.0-50.0); MEAN CORPUSCULAR HEMOGLOBIN 28.9 pg (27.0-31.0); MEAN CORPUSCULAR HGB CONC 31.9 (31.8-35.4); MEAN CORPUSCULAR VOLUME 90.5 fl (80.0-94.0); MONOCYTES # (AUTO) 0.8 K/uL (0.4-2.0); MONOCYTES % (AUTO) 6.2 (0-10); NEUTROPHILS # (AUTO) 11.2 K/ul (2.0-6.9); NEUTROPHILS % (AUTO) 84.1 % (42.2-75.2); PLATELET COUNT 283 10^3/uL (140-440); RDW COEFFICIENT OF VARIATION 13.3 % (11.6-14.8); RED BLOOD COUNT 4.61 10^6/ul (4.70-6.10); WHITE BLOOD COUNT 13.31 K/ul (4.2-10.2)
[2021-05-06 05:21] LABS: ALANINE AMINOTRANSFERASE 14.2 U/L (0-50); ALBUMIN 3.33 g/dL (3.5-5.0); ALKALINE PHOSPHATASE 48.5 U/L (56-119); ASPARTATE AMINO TRANSFERASE 20.8 U/L (17-59); BILIRUBIN,TOTAL 0.4 mg/dL (0.2-1.3); CALCIUM 9.08 mg/dL (8.4-10.2); CARBON DIOXIDE 28.8 mmol/L (22-30.0); CHLORIDE 103.8 mmol/L (98-107); CREATININE 0.73 mg/dL (0.60-1.10); GLUCOSE 120.2 mg/dL (74-106); POTASSIUM 3.71 mmol/L (3.5-5.1); SODIUM 138.7 mmol/L (134.5-145); TOTAL PROTEIN 6.27 g/dL (6.3-8.2)
[2021-05-06] MEDS: PLAVIX PO SCH (09:37)
[2021-05-06] MEDS: ZETIA PO SCH (09:37)
[2021-05-06] MEDS: LOPRESSOR PO SCH ×2 (09:37→20:36)
[2021-05-06] MEDS: ASPIRIN EC PO SCH (09:37)
[2021-05-06] MEDS: MICRO-K CAP PO SCH ×2 (09:38→17:22)
[2021-05-06] MEDS: PROTONIX PO SCH (09:38)
[2021-05-06] MEDS: SYMBICORT 160-4.5 MCG INHALER IH SCH ×2 (09:38→20:35)
[2021-05-06] MEDS: MUCINEX DM ER 600-30 MG TABLET PO SCH ×2 (09:38→20:41)
[2021-05-06] MEDS: SINGULAIR PO SCH (09:38)
[2021-05-06] MEDS: PREDNISONE PO SCH (09:38)
[2021-05-06] MEDS: FLAGYL PO SCH ×2 (14:17→20:36)
[2021-05-06] MEDS: SODIUM CHLORIDE 0.9%-KCL 20 MEQ 1,000 ML IV SCH (17:24)
[2021-05-06] MEDS: OMNICEF PO SCH (20:36)
[2021-05-06] MEDS: ARICEPT PO SCH (20:36)
[2021-05-06] MEDS: XANAX PO PRN (21:22)
[2021-05-07 05:11] LABS: BASOPHILS % (AUTO) 0.3 % (0.0-3.0); EOSINOPHILS # (AUTO) 0.1 K/ul (0.0-0.7); EOSINOPHILS % (AUTO) 0.8 % (0.0-7.0); HEMATOCRIT 36.6 % (42.0-52.0); HEMOGLOBIN 11.8 g/dl (14.0-18.0); IMMATURE GRANULOCYTE % (AUTO) 0.4 % (0.0-5.0); LYMPHOCYTES # (AUTO) 1.4 K/uL (0.60-3.4); LYMPHOCYTES % (AUTO) 12.7 (10.0-50.0); MEAN CORPUSCULAR HEMOGLOBIN 29.2 pg (27.0-31.0); MEAN CORPUSCULAR HGB CONC 32.2 (31.8-35.4); MEAN CORPUSCULAR VOLUME 90.6 fl (80.0-94.0); MONOCYTES # (AUTO) 0.8 K/uL (0.4-2.0); MONOCYTES % (AUTO) 7.8 (0-10); NEUTROPHILS # (AUTO) 8.4 K/ul (2.0-6.9); PLATELET COUNT 245 10^3/uL (140-440); RDW COEFFICIENT OF VARIATION 13.5 % (11.6-14.8); RED BLOOD COUNT 4.04 10^6/ul (4.70-6.10); WHITE BLOOD COUNT 10.76 K/ul (4.2-10.2)
[2021-05-07 05:27] LABS: ALANINE AMINOTRANSFERASE 12.4 U/L (0-50); ALBUMIN 2.88 g/dL (3.5-5.0); ALKALINE PHOSPHATASE 43.9 U/L (56-119); ASPARTATE AMINO TRANSFERASE 20.8 U/L (17-59); BILIRUBIN,TOTAL 0.26 mg/dL (0.2-1.3); BLOOD UREA NITROGEN 9.2 mg/dL (9-20); CALCIUM 8.61 mg/dL (8.4-10.2); CHLORIDE 107.5 mmol/L (98-107); CREATININE 0.67 mg/dL (0.60-1.10); POTASSIUM 3.87 mmol/L (3.5-5.1); SODIUM 136.3 mmol/L (134.5-145); TOTAL PROTEIN 5.44 g/dL (6.3-8.2)
[2021-05-07 05:36] VITALS: TEMP 97.1
[2021-05-07] MEDS: PROTONIX PO SCH (05:48)
[2021-05-07] MEDS: FLAGYL PO SCH (05:48)
[2021-05-07] MEDS: SYMBICORT 160-4.5 MCG INHALER IH SCH (08:19)
[2021-05-07] MEDS: SINGULAIR PO SCH (08:20)
[2021-05-07] MEDS: ASPIRIN EC PO SCH (08:20)
[2021-05-07] MEDS: LOPRESSOR PO SCH (08:20)
[2021-05-07] MEDS: PLAVIX PO SCH (08:21)
[2021-05-07] MEDS: ZETIA PO SCH (08:21)
[2021-05-07] MEDS: MUCINEX DM ER 600-30 MG TABLET PO SCH (08:21)
[2021-05-07] MEDS: OMNICEF PO SCH (08:21)
[2021-05-07] MEDS: PREDNISONE PO SCH (08:21)
[2021-05-07] MEDS: MICRO-K CAP PO SCH (08:21)
[2021-05-07 08:37] VITALS: BP 132/71
== END 2021-05-07 12:30 | disposition home or self-care (01) | DRG 871 ==
LOC: ED 09:58 → MEDSURG A 09:58 → OBSVTOIN 14:25 → MEDSURG A 14:56
PROVIDERS: ADMIT Family Medicine; ATTEND Family Medicine
DX: Z79.01 Long term (current) use of anticoagulants; N39.0 Urinary tract infection, site not specified; K52.9 Noninfective gastroenteritis and colitis, unspecified; Z79.899 Other long term (current) drug therapy; J96.00 Acute respiratory failure, unspecified whether with hypoxia or hypercapnia; J44.9 Chronic obstructive pulmonary disease, unspecified; R79.89 Other specified abnormal findings of blood chemistry; K21.9 Gastro-esophageal reflux disease without esophagitis; E78.5 Hyperlipidemia, unspecified; Z51.81 Encounter for therapeutic drug level monitoring; I10 Essential (primary) hypertension; M54.50 Low back pain, unspecified; I73.9 Peripheral vascular disease, unspecified; A41.9 Sepsis, unspecified organism; F41.9 Anxiety disorder, unspecified; M62.81 Muscle weakness (generalized); Z20.822 Contact with and (suspected) exposure to COVID-19; D72.829 Elevated white blood cell count, unspecified; I25.10 Atherosclerotic heart disease of native coronary artery without angina pectoris